=== PATIENT | male | born 1940 | race Caucasian/White ===

== ENCOUNTER 2016-04-12 06:35 | Day surgery (SDC) | payer OTHER, MEDICARE ==
[~2016-04-12] VITALS: Ht 165.1 cm; Wt 52.0 kg
[2016-04-12] VITALS (10 sets, daily range): BP systolic 103–140; BP diastolic 45–55; PULSE 62–68; RESP 16–24; Ht 165.1 cm; Wt 52.0 kg
[~2016-04-12 06:35] MED LIST: AMIO200T46 PO; ASPI-664 PO; CALC1TAB32 PO; METO-429 PO; NEPH PO; NIFE60TA7 PO; PRED5 PO; SIMV20TA PO; TEMA15CA PO; TRAM50TA2 PO
[2016-04-12] MEDS ORDERED: VERAPAMIL 5 MG INJ ONE (08:01)
[2016-04-12] MEDS ORDERED: MIDAZOLAM 1 MG/ML 2 ML INJ ONE (08:01)
[2016-04-12] MEDS ORDERED: NITROGLYCERIN (IC) 100 MCG/ML INJ ONE (08:01)
[2016-04-12] MEDS ORDERED: LIDOCAINE 1% (MDV) 20 ML INJ ONE (08:01)
[2016-04-12] MEDS ORDERED: FENTAnyl 50 MCG/ML VIAL ONE (08:01)
[2016-04-12] MEDS ORDERED: IODIXANOL LOCM 100 ML BTL ONE (08:01)
[2016-04-12] MEDS ORDERED: HEPARIN 1000 UNITS/ML 10 ML INJ ONE (08:01)
[2016-04-12] MEDS ORDERED: SOD CHLORIDE 0.9% 500 ML ONE (08:58)
--- NOTE | 2016-04-12 09:14 | OPR ---
Date/Time of Note Date/Time of Note DATE: 04/12/16 TIME: 09:10 Operative Report Free Text/Dictation Procedure Date:04/12/2016 Procedures Performed: 1)Selective left and right coronary angiography. 2)Left ventricle angiography 3)Right femoral venous sheath insertion 4)Ultrasound guided right radial access Pre-operative Diagnosis:NSTEMI, CAD, cardiomyopathy, CHF Post-operative Diagnosis:same Indications:75 yo M with a h/o CAD s/p PCI to RCA, ESRD on HD, admitted for CHF and found to have an NSTEMI (trop 0.7) with EF 35%. Description of Procedure: After informed consent, the patient was brought to the cardiac catheterization lab. The procedure site was prepped and draped in usual manner. As the pt did not have IV access, a 4 georgian sheath was inserted into the right femoral vein. The patient was premedicated with versed 1 mg and fentanyl 25 mcg. 2 mL lidocaine was injected into the right wrist. Using ultrasound guidance and the posterior wall approach, the 6/5 georgian sheath was inserted into the right radial artery. Next using the JL4 and JR4, selective angiography of the left and right coronary arteries were obtained. The pigtail was then advanced into the ventricle and hemodynamics obtained. Left ventricle angiography was obtained. Next all equipment was removed and hemostasis was obtained by TR band. Findings: Anatomy/Hemodynamics: Left main:no significant disease LAD:small vessel ~2-2.25mm with prox to distal diffuse disease up to 50% unchanged from cath 2015 Diagonal:luminal irregularities Circumflex:luminal irregularities Obtuse marginal 1: luminal irregularities Obtuse marginal 2: large vessel with prox 40% unchanged from cath 2015, distal 50-60% in a vessel that tapers to <2mm RCA:prox/mid stent patent PDA:mid to distal 50-60% in a <2 mm vessel PLV: luminal irregularities LV angiography:~35-40% with akinesis/dyskinesis of the entire apex LV-Ao no pullback gradient LVEDP:19 Contrast used:65 Fluoroscopy time: 2.5 Assessment: Nonobstructive diffuse CAD not amenable to PCI NSTEMI Cardiomyopathy Systolic heart failure Plan: -discharge back to [facility] for medical management ROJAS MCPHERSON Apr 12, 2016 09:14
[2016-04-12] MEDS ORDERED: morphine 2 MG INJ IV PRN (09:30)
[2016-04-12] MEDS ORDERED: ONDANSETRON 4 MG INJ IV PRN (09:30)
== END 2016-04-12 11:28 | disposition other institution (70) ==
LOC: CCL 06:35 → SDS 06:41 → CCL 11:28
PROVIDERS: ATTEND Internal Medicine Interventional Cardiology
DX: I21.4 Non-ST elevation (NSTEMI) myocardial infarction (principal); I25.10 Atherosclerotic heart disease of native coronary artery without angina pectoris; I50.20 Unspecified systolic (congestive) heart failure; I42.9 Cardiomyopathy, unspecified; I12.0 Hypertensive chronic kidney disease with stage 5 chronic kidney disease or end stage renal disease; N18.6 End stage renal disease; Z99.2 Dependence on renal dialysis; E78.5 Hyperlipidemia, unspecified
CPT/HCPCS: 82962; 93458; C1769; C1887; C1894; J1644; J2250; J3010; J7040; Q9967

== ENCOUNTER 2016-06-29 20:39 | Inpatient (IN) | payer MEDICARE ==
[~2016-06-29] VITALS: Ht 160 cm; Wt 49.3 kg
[~2016-06-29 20:39] MED LIST changes: -AMIO200T46 PO
[2016-06-29] MEDS ORDERED: SOD CHLORIDE 0.9% 500 ML IV STA (21:45)
[2016-06-29] MEDS ORDERED: ASPI81TA3 PO (21:46)
[2016-06-29] MEDS ORDERED: TEMA30CA PO (21:47)
[2016-06-29] MEDS ORDERED: NEPH PO (21:48)
[2016-06-29] MEDS ORDERED: ABIR250T PO (21:49)
[2016-06-29] MEDS ORDERED: AMIO200T2 PO (21:49)
[2016-06-29] MEDS ORDERED: SIMV20TA PO (21:50)
[2016-06-29] MEDS ORDERED: PRED5 PO (21:51)
[2016-06-29] MEDS ORDERED: METO-429 PO (21:52)
[2016-06-29] MEDS ORDERED: NIFE60TA7 PO (21:53)
[2016-06-29] MEDS ORDERED: SEVE800T7 PO (21:54)
[2016-06-29] MEDS ORDERED: CALC1TAB79 PO (21:55)
[2016-06-29 22:13] LABS: ADD SCAN DIFF NO
[2016-06-29 22:19] LABS: BASOPHILS % 0.2 % (0.0-2.0); EOSINOPHILS # 0.1 10^3/ul (0.0-0.5); EOSINOPHILS % 0.6 % (0.0-7.0); HEMATOCRIT 35.5 % (42.0-52.0); HEMOGLOBIN 11.3 g/dl (14.0-18.0); LYMPHOCYTES # 0.7 10^3/ul (0.8-2.9); LYMPHOCYTES % 7.5 % (15.0-51.0); MEAN CORPUSCULAR HEMOGLOBIN 28.2 pg (29.0-33.0); MEAN CORPUSCULAR HGB CONC 31.8 g/dl (32.0-37.0); MEAN CORPUSCULAR VOLUME 88.5 fl (82.0-101.0); MEAN PLATELET VOLUME 10.9 fl (7.4-10.4); MONOCYTE # 1.2 10^3/ul (0.3-0.9); MONOCYTES % 11.9 % (0.0-11.0); NEUTROPHIL # 7.8 10^3/ul (1.6-7.5); NEUTROPHILS % 79.1 % (39.0-77.0); PLATELET COUNT 240 10^3/UL (140-415); RED BLOOD COUNT 4.01 10^6/ul (4.70-6.10); RED CELL DISTRIBUTION WIDTH 15.7 % (11.5-14.5); WHITE BLOOD COUNT 9.8 10^3/ul (4.8-10.8)
[2016-06-29 22:45] LABS: ALBUMIN 4.1 g/dl (3.3-4.9)
[2016-06-29 22:47] LABS: CREATININE 5.94 mg/dl (0.61-1.24)
[2016-06-29 22:48] LABS: ALBUMIN/GLOBULIN RATIO 1.05
[2016-06-29 22:49] LABS: CALCIUM 9.3 mg/dl (8.4-10.2)
[2016-06-29 23:00] LABS: TROPONIN-I 0.022 ng/ml (0.00-0.12)
--- NOTE | 2016-06-29 23:03 | ERA ---
ER Documentation Chief Complaint Date/Time DATE: 06/29/16 TIME: 23:00 Chief Complaint altered mental status after being dialyzed today HPI This a pleasant 75-year-old male who is here for altered level of consciousness during dialysis. Patient's normal baseline mental status is awake alert oriented 3 is very sharp and "with it". Patient was at dialysis and at around 8 PM tonight patient suddenly became confused. The patient's speech is tangential and he did not recognize his family members and he did not even know his own name. The patient is denying any physical complaints denies headache chest pain shortness of breath no focal neurological complaints. ROS All systems reviewed and are negative except as per history of present illness. Medications Home Meds Reported Medications Calcium Carbonate/Vitamin D3 (Oysco 500+D Tablet) 1 Each Tablet, 1 EACH PO BID, TAB 06/29/16 Sevelamer Carbonate* (Renvela*) 800 Mg Tablet, 0.8 GM PO WITH MEALS, TAB 06/29/16 Nifedipine* (Nifedipine ER*) 60 Mg Tablet.sa, 60 MG PO BID, TAB.SA 06/29/16 Metoprolol Tartrate* (Lopressor*) 50 Mg Tab, 50 MG PO BID, #60 TAB 06/29/16 Prednisone* (Prednisone*) 5 Mg Tab, 5 MG PO BID, TAB 06/29/16 Simvastatin* (Zocor*) 20 Mg Tablet, 20 MG PO QHS, #30 TAB 06/29/16 Amiodarone Hcl* (Amiodarone Hcl*) 200 Mg Tablet, 200 MG PO BID, #60 TAB 06/29/16 Abiraterone Acetate (ZYTIGA) 250 Mg Tablet, 250 MG PO DAILY, TAB 06/29/16 Multivit/Ca Carb/B Cmplx/Fa* (Darcy-Jean-Pierre*) 1 Tab Tab, 1 TAB PO DAILY, TAB 06/29/16 Temazepam* (Temazepam*) 30 Mg Capsule, 30 MG PO HS Y for INSOMNIA, CAP 06/29/16 Aspirin* (Aspirin* Chew) 81 Mg Tab.chew, 81 MG PO DAILY, TAB.CHEW 06/29/16 Discontinued Reported Medications Metoprolol Tartrate* (Lopressor*) 50 Mg Tab, 50 MG PO BID, #60 TAB 10/12/15 Simvastatin* (Zocor*) 20 Mg Tablet, 20 MG PO QHS, #30 TAB 10/12/15 Prednisone* (Prednisone*) 5 Mg Tab, 5 MG PO BID, TAB 08/27/14 Calcium/Vitamin D (Oyst-Sylvain-D 500) 1 Tab Tab, 1 TAB PO BID, TAB 08/27/14 Multivit/Ca Carb/B Cmplx/Fa* (Darcy-Jean-Pierre*) 1 Tab Tab, 1 TAB PO DAILY, TAB 08/27/14 Nifedipine* (Nifedipine ER*) 60 Mg Tablet.sa, 60 MG PO BID, TAB.SA 08/27/14 Temazepam* (Temazepam*) 15 Mg Capsule, 15 MG PO HS Y for INSOMNIA, CAP 08/27/14 Discontinued Scripts Tramadol HCl (Tramadol HCl) 50 Mg Tablet, 50 MG PO Q4 Y for PAIN, #20 TAB Prov:TRU BERG 10/13/15 Aspirin* (Aspirin* EC) 81 Mg Tabec, 81 MG PO DAILY, #30 TAB Prov:PARESH RUBI MD 09/05/14 Allergies Allergies: Coded Allergies: No Known Allergy (Unverified , 06/29/16) PMhx/Soc History of Surgery: Yes (cardiac stent, a/v shunt left lower arm) Anesthesia Reaction: No Hx Neurological Disorder: No Hx Respiratory Disorders: No Hx Cardiac Disorders: Yes (htn, dm) Hx Psychiatric Problems: No Hx Miscellaneous Medical Probl: Yes (prostate ca, esrd, dialysis q tue, th, sat) Hx Alcohol Use: No Hx Substance Use: No Hx Tobacco Use: No Smoking Status: Never smoker FmHx Unable to obtain due to altered mental status Physical Exam Vitals Vital Signs Date Time Temp Pulse Resp B/P Pulse Ox O2 Delivery O2 Flow Rate FiO2 06/29/16 23:26 70 16 159/62 99 Nasal Cannula 2.0 06/29/16 22:06 Nasal Cannula 2 06/29/16 21:30 68 16 188/76 100 Nasal Cannula 2.0 06/29/16 20:41 97.6 77 20 209/88 98 Physical Exam Const: Well-developed, well-nourished Head: Atraumatic, normocephalic Eyes: Normal Conjunctiva, PERRLA, EOMI, normal sclera, no nystagmus ENT: Normal External Ears, Nose and Mouth, moist mucus membranes. Neck: Full range of motion. No meningismus, no lymphadenopathy. Resp: Clear to auscultation bilaterally, no wheezing, rhonchi, rales Cardio: Regular rate and rhythm, no murmurs, S1 S2 present Abd: Soft, non tender x 4, non distended. Normal bowel sounds, no guarding or rebound, no pulsitile abdominal masses or bruits Skin: No petechiae or rashes, no ecchymosis , no maculopapular rash Back: No midline or flank tenderness Ext: No cyanosis, or edema, FROM x 4, normal inspection, neurovascularly intact x 4 Neur: Awake and alert, STR 5/5 x 4, sensation intact x 4, no focal findings, cerebellum intact, patient is oriented 1-2, the patient does not recognize his daughter. After a few minutes he did recognize her but does not know her name. Patient does not know why he is here. Psych: Normal Mood and Affect Result Diagram: 06/29/16214406/29/162144 Results 24 hrs Laboratory Tests Test 06/29/16 21:45 White Blood Count 9.810^3/ul Red Blood Count 4.0110^6/ul Hemoglobin 11.3g/dl Hematocrit 35.5% Mean Corpuscular Volume 88.5fl Mean Corpuscular Hemoglobin 28.2pg Mean Corpuscular Hemoglobin Concent 31.8g/dl Red Cell Distribution Width 15.7% Platelet Count 82961^3/UL Mean Platelet Volume 10.9fl Neutrophils % 79.1% Lymphocytes % 7.5% Monocytes % 11.9% Eosinophils % 0.6% Basophils % 0.2% Nucleated Red Blood Cells % 0.0/100WBC Neutrophils # 7.810^3/ul Lymphocytes # 0.710^3/ul Monocytes # 1.210^3/ul Eosinophils # 0.110^3/ul Basophils # 0.010^3/ul Nucleated Red Blood Cells # 0.010^3/ul Sodium Level 137mmol/L Potassium Level 4.0mmol/L Chloride Level 89mmol/L Carbon Dioxide Level 28mmol/L Anion Gap 24 Blood Urea Nitrogen 49mg/dl Creatinine 5.94mg/dl Glucose Level 133mg/dl Calcium Level 9.3mg/dl Total Bilirubin 0.0mg/dl Direct Bilirubin 0.00mg/dl Indirect Bilirubin 0.0mg/dl Aspartate Amino Transf (AST/SGOT) 22IU/L Alanine Aminotransferase (ALT/SGPT) 18IU/L Alkaline Phosphatase 114IU/L Ammonia < 9umol/l Troponin I 0.022ng/ml Total Protein 8.0g/dl Albumin 4.1g/dl Globulin 3.90g/dl Albumin/Globulin Ratio 1.05 Current Medications Medications (Trade) Dose Ordered Sig/Garland Route PRN Reason Start Time Stop Time Status Last Admin Dose Admin Sodium Chloride (NS) 500 ml @ 500 mls/hr Q1H STAT IV 06/29/16 21:45 06/29/16 22:44 DC 06/29/16 22:35 Procedures/MDM PROCEDURE: CT brain without contrast CLINICAL INDICATION: Altered mental status TECHNIQUE: A CT of the brain was performed utilizing axial sections from the skull base through the vertex without contrast. Sagittal and coronal images were also reformatted. The exam CTDIvol = 43.68 mGy and DLP = 720.23 mGy-cm. COMPARISON: None available FINDINGS: No acute intracranial hemorrhage is identified. There is no mass effect or midline shift. No extra-axial fluid collection is seen. The ventricles and sulci are normal in size and configuration for the patient's provided age of 75 years consistent with advanced generalized atrophy. Cortical atrophy with prominence of the subarachnoid spaces adjacent to the frontal lobes bilaterally is present The density of the brain is within normal limits. Cedillo-white differentiation is preserved with no findings to suggest an acute ischemic infarct. The fourth ventricle is midline and there is no density alteration within the vin or cerebellum. The osseous structures are demineralized but otherwise to unremarkable. The mastoid air cells and visualized paranasal sinuses are clear. Severe atherosclerotic calcification of the cavernous internal carotid and vertebral arteries is present RPTAT:HJJR IMPRESSION: 1.Generalized atrophy appropriate for the patient's provided age with no evidence of acute intracranial abnormality or findings to explain the patient's provided history. 2. Severe atherosclerotic calcification of the internal carotid and vertebral arteries. Physician Danilo Date Time Electronically viewed and signed by Physician Danilo on 06/29/2016 23:09 JR/ CC: LILLY CADET DO EKG: Rate/Rhythm: Normal sinus rhythm, normal axis and intervals QRS, ST, QT: NORMAL LA, QRS, prolonged QT] Impression: NORMAL EKG Patient will be admitted to the hospital for altered mental status. The patient may have had some type of cerebral event, chest x-ray is currently pending may have an infectious process. No signs of stroke the patient has significant plaque in his carotid arteries may have had a small piece of plaque come off and go into the head for a small stroke. Will need to get MRI. He will be given an aspirin here. Is not a TPA candidate as you do not give TPA for altered mental status We will admit to panel Departure Diagnosis: Primary Impression: Altered level of consciousness Condition: Stable LILLY CADET DO June 29, 2016 23:03
--- NOTE | 2016-06-29 23:09 | RADRPT ---
PROCEDURE: CT brain without contrast CLINICAL INDICATION: Altered mental status TECHNIQUE: A CT of the brain was performed utilizing axial sections from the skull base through th e vertex without contrast. Sagittal and coronal images were also reformatted. The exam CTDIvol = 43. 68 mGy and DLP = 720.23 mGy-cm. COMPARISON: None available FINDINGS: No acute intracranial hemorrhage is identified. There is no mass effect or midline shift. No extra -axial fluid collection is seen. The ventricles and sulci are normal in size and configuration for the patient's provided age of 75 years consistent with advanced generalized atrophy. Cortical atroph y with prominence of the subarachnoid spaces adjacent to the frontal lobes bilaterally is present Th e density of the brain is within normal limits. Cedillo-white differentiation is preserved with no fin dings to suggest an acute ischemic infarct. The fourth ventricle is midline and there is no density alteration within the vin or cerebellum. The osseous structures are demineralized but otherwise to unremarkable. The mastoid air cells and v isualized paranasal sinuses are clear. Severe atherosclerotic calcification of the cavernous interna l carotid and vertebral arteries is present RPTAT:HJJR IMPRESSION: 1.Generalized atrophy appropriate for the patient's provided age with no evidence of acute intracran ial abnormality or findings to explain the patient's provided history. 2. Severe atherosclerotic calcification of the internal carotid and vertebral arteries. Physician Danilo Date Time Electronically viewed and signed by Physician Danilo on 06/29/2016 23:09 /
[2016-06-30] VITALS (22 sets, daily range): BP systolic 141–190; BP diastolic 59–81; PULSE 64–75; RESP 16–65; Ht 160 cm; Wt 49.3 kg
--- NOTE | 2016-06-30 00:45 | RADRPT ---
PROCEDURE: XR Chest. CLINICAL INDICATION: Altered Mental Status TECHNIQUE: Single frontal view of the chest. COMPARISON: 10/12/2015. FINDINGS: Cardiomegaly and atherosclerotic calcifications in the thoracic aorta. Hyperinflation of the lungs suggest COPD with changes of centrolobular emphysema. No signs of pleural fluid or pneumothorax are seen. The osseous structures and soft tissues are unremarkable. IMPRESSION: No evidence for active cardiopulmonary disease. RPTAT: [facility]U Physician Raffaele Date Time Electronically viewed and signed by Physician Raffaele on 06/30/2016 00:45 RS/
[2016-06-30] MEDS ORDERED: ASPIRIN 81 MG TAB PO ONE (01:00)
[2016-06-30] MEDS ORDERED: ACETAMINOPHEN 325 MG TAB PO PRN ×2 (01:30→04:00)
[2016-06-30] MEDS ORDERED: ONDANSETRON 4 MG INJ IV PRN ×2 (01:30→04:00)
[2016-06-30] MEDS ORDERED: GLUCAGON 1 MG INJ IM PRN (04:00)
[2016-06-30] MEDS ORDERED: GLUCOSE GEL 15 GRAM TUBE PO PRN ×2 (04:00)
[2016-06-30] MEDS ORDERED: hydrALAzine 20 MG INJ IV ONE (04:00)
[2016-06-30] MEDS ORDERED: hydrALAzine 20 MG INJ IV PRN (04:00)
[2016-06-30] MEDS ORDERED: DEXTROSE 50% 50 ML SYRINGE IV PRN ×2 (04:00)
[2016-06-30] MEDS ORDERED: GLUCOSE GEL 15 GRAM TUBE BUCCAL PRN (04:00)
[2016-06-30] MEDS ORDERED: ZOLPIDEM 5 MG TAB PO PRN (04:00)
[2016-06-30 07:54] LABS: ADD SCAN DIFF NO
[2016-06-30] MEDS: INSULIN ASPART [NOVOLOG] 3 ML PEN SC SCH ×4 (08:00→21:00)
[2016-06-30 08:06] LABS: BASOPHILS % 0.5 % (0.0-2.0); EOSINOPHILS # 0.1 10^3/ul (0.0-0.5); EOSINOPHILS % 1.6 % (0.0-7.0); HEMATOCRIT 36.3 % (42.0-52.0); HEMOGLOBIN 11.4 g/dl (14.0-18.0); LYMPHOCYTES # 1.1 10^3/ul (0.8-2.9); LYMPHOCYTES % 14.7 % (15.0-51.0); MEAN CORPUSCULAR HEMOGLOBIN 27.6 pg (29.0-33.0); MEAN CORPUSCULAR HGB CONC 31.4 g/dl (32.0-37.0); MEAN CORPUSCULAR VOLUME 87.9 fl (82.0-101.0); MEAN PLATELET VOLUME 10.7 fl (7.4-10.4); MONOCYTE # 0.9 10^3/ul (0.3-0.9); MONOCYTES % 12.6 % (0.0-11.0); NEUTROPHIL # 5.3 10^3/ul (1.6-7.5); NEUTROPHILS % 70.2 % (39.0-77.0); PLATELET COUNT 258 10^3/UL (140-415); RED BLOOD COUNT 4.13 10^6/ul (4.70-6.10); RED CELL DISTRIBUTION WIDTH 15.7 % (11.5-14.5); WHITE BLOOD COUNT 7.5 10^3/ul (4.8-10.8)
[2016-06-30 08:26] LABS: ANION GAP 13 (8-16); BLOOD UREA NITROGEN 53 mg/dl (7-20); CALCIUM 8.9 mg/dl (8.4-10.2); CARBON DIOXIDE 28 mmol/L (21-31); CHLORIDE 96 mmol/L (97-110); CHOL/HDL RATIO 3.2 RATIO; CHOLESTEROL 133 mg/dl (100-200); CREATININE 6.77 mg/dl (0.61-1.24); GLUCOSE 95 mg/dl (70-220); HDL CHOLESTEROL 41 mg/dl (31-75); MAGNESIUM 2.1 mg/dl (1.7-2.5); PHOSPHORUS 4.3 mg/dl (2.5-4.9); POTASSIUM 4.2 mmol/L (3.5-5.1); SODIUM 133 mmol/L (135-144); TRIGLYCERIDES 136 mg/dl (0-149)
[2016-06-30] MEDS: ASPIRIN 81 MG TAB PO SCH (08:39)
[2016-06-30] MEDS: MULTIVIT/CA CARB/B CMPLX/FA TAB PO SCH (08:39)
[2016-06-30] MEDS: NIFEdipine (XL) 60 MG TAB PO SCH ×2 (08:40→21:23)
[2016-06-30] MEDS: AMIODARONE 200 MG TAB PO SCH ×2 (08:40→21:24)
[2016-06-30] MEDS: predniSONE 5 MG TAB PO SCH ×2 (08:40→21:23)
[2016-06-30] MEDS: SEVELAMER CARBONATE 0.8 GM PKT PO SCH ×3 (08:49→18:20)
[2016-06-30] MEDS: HEPARIN 5,000 UNIT/0.5 ML VIAL SC SCH ×2 (08:49→21:29)
[2016-06-30] MEDS: CALCIUM/VITAMIN D (500/200) TAB PO SCH ×2 (08:50→21:23)
[2016-06-30] MEDS ORDERED: METOPROLOL 50 MG TAB PO SCH (09:00)
[2016-06-30 09:26] LABS: FOLATE > 20.0 ng/ml (2.8-20.0)
--- NOTE | 2016-06-30 10:31 | HP ---
DATE OF ADMISSION: 06/30/2016 CHIEF COMPLAINT: Altered mentation. HISTORY OF PRESENT ILLNESS: The patient is a 75-year-old male with a history of hypertension, diabe romana, coronary artery disease status post stent, AFib, and probable history of prostate cancer, who w as sent from a dialysis center after experiencing altered mentation. At 2 hours into dialysis, he h ad sudden onset of altered mentation and as such, he was sent here for evaluation. The patient did not really have any complaints at that time or even now. He denied any focal weakness, chest pain, shortness of breath, headache, visual disturbance, fever or chills. His systolic blood pressure at that time was over 200. When he presented to the ER, blood pressure was 209/88, heart rate 77, resp iratory rate 20, temperature 97.6, oxygen saturation 98% on room air. CT of the head shows severe p laque in the internal carotid and vertebral arteries. Labs show hemoglobin 11.3, chloride 89, BUN 4 9, creatinine almost 6. Otherwise, CBC and CMP were within acceptable range. Chest x-ray shows no evidence of active cardiopulmonary disease. The patient told me that 2 weeks ago he actually had a similar episode of altered mentation during d ialysis. Currently, he actually is fully aware of what had happened and he is currently answering q uestions appropriately and is actually feeling well and he is oriented. REVIEW OF SYSTEMS: A 12-point review of systems performed and negative except as mentioned in the H PI. PAST MEDICAL HISTORY: As per HPI. PAST SURGICAL HISTORY: Cardiac stent as well as left arm AV shunt. SOCIAL HISTORY: Denied history of tobacco, alcohol or illicit drug use. ALLERGIES: NO KNOWN DRUG ALLERGIES. HOME MEDICATIONS: 1. Zytiga. 2. Amiodarone. 3. Lopressor. 4. Nifedipine. 5. Zocor. 6. Aspirin. 7. Temazepam. 8. Calcium. 9. Sevelamer. 10. Prednisone. 11. Multivitamin. PHYSICAL EXAMINATION: VITAL SIGNS: Blood pressure 176/64, heart rate 67, respiratory rate 16, temperature 97.6, oxygen sa turation 100% on 2 liters. GENERAL: The patient lying in bed. Initially sleepy but arousable, answering questions appropriate ly and able to speak in full sentences. HEENT: No obvious head deformity. No scleral icterus. Pupils are reactive to light. CARDIOVASCULAR: Regular rate and rhythm with no extra sounds. LUNGS: Clear. ABDOMEN: Soft, nontender, nondistended. Positive bowel sounds. EXTREMITIES: No edema. NEUROLOGIC: No focal deficits. He actually has 5/5 strength in both upper and lower extremities wi th good hand sales consultant. LABORATORY DATA: Pertinent positive results as mentioned in the HPI. IMAGING: Brain CT results as mentioned in the HPI. A chest x-ray shows no evidence for active card iopulmonary disease. IMPRESSION: 1. Acute encephalopathy, resolved. It was likely secondary to hypertensive crisis. 2. Hypertensive emergency, blood pressure better controlled. 3. End-stage renal disease, on dialysis. 4. History of coronary artery disease status post stent in 2014. 5. History of atrial fibrillation. 6. History of diabetes. 7. History of probable prostate cancer. PLAN: The patient's initial altered mentation which occurred 2 hours into dialysis, it is likely re sult of a severely elevated blood pressure. Also prior to that, his blood pressure could have been momentarily low and it could have been both a hypotensive and the hypertensive episode. CT of the h ead shows no acute infarct or hemorrhage, but it did show severe internal carotid artery and vertebr al artery plaques. We will obtain additional imaging including a CT angio of the neck and an MRI fo r further evaluation. We will continue to adjust his blood pressure for better control. He will be on insulin while in house. We will continue his home medications with adjustments as needed includ ing his cardiac medications and aspirin. I will also check a folic acid, vitamin B12 and TSH, so we will follow up on the results in the morning. We will place a nephrology consult. We are going to continue his dialysis while in house. Further workup and management per clinical course. Dictated By: TRU MEZA/GOPAL Conf#: [id number] DID#: [id number]
--- NOTE | 2016-06-30 10:58 | CONS ---
DATE OF ADMISSION: 06/30/2016 DATE OF CONSULTATION: 06/30/2016 TYPE OF CONSULTATION: Nephrology. REASON FOR CONSULTATION: End-stage renal disease. REQUESTING PHYSICIAN: Dr. Pereyra. HISTORY OF PRESENT ILLNESS: This is a 75-year-old male with a past medical history of prostate canc er on hormonal replacement therapy and history of end-stage renal disease on dialysis Monday, , Monday with access left AV fistula, history of diabetes, history of hypertension who presents to [facility] with chest heaviness and altered mental status. The patient appare ntly during this course hemodialysis lost consciousness. The patient also complained of chest heavi ness. The patient at one point was unable to recognize family members. The patient as a result was transferred to [facility] Emergency Room. Upon arrival, the patient had a CT scan of the brain which showed generalized atrophy, but no acute findings. The patient in the emergency room al so had a chest x-ray which showed no evidence of cardiopulmonary disease. He was subsequently treat ed with Unasyn. The patient was also given aspirin was given IV fluids and admitted up to telemetry for evaluation. Upon my evaluation of the patient at this time, he is currently stable. Denies any chest pain, feve rs, chills, nausea, vomiting. PAST MEDICAL HISTORY: As stated above, history of prostate cancer, history of end-stage renal disea se, history of hypertension, diabetes, anemia, mineral bone disorder. PAST SURGICAL HISTORY: Status post AV fistula placement. FAMILY HISTORY: Noncontributory. SOCIAL HISTORY: Does not drink, smoke or do drugs. MEDICATIONS: Patient medications have been reviewed and reconciled. REVIEW OF SYSTEMS: A 14-point review of systems was conducted. Pertinent positives stated in HPI, otherwise negative. PHYSICAL EXAMINATION: VITAL SIGNS: Blood pressure was 73/77, respirations 16, pulse 77, temperature 98.0. HEENT: Head is normocephalic. NECK: Supple. HEART: Regular rate. LUNGS: Show diminished breath sounds at base. ABDOMEN: Soft, nontender to palpation. No rebound or guarding. EXTREMITIES: Negative for clubbing, cyanosis, edema. DERMATOLOGIC: No rashes. MUSCULOSKELETAL: No joint effusions. NEUROLOGIC: No focal deficits. MEDICATIONS: Have been reviewed. LABORATORY DATA: Shows sodium 133, potassium 4.2, chloride 96, BUN 53, creatinine 6.77. White coun t 7.5, hemoglobin 9.4, hematocrit 36.3, platelet count 258. IMAGING STUDIES: Have been reviewed. ASSESSMENT AND PLAN: 1. End-stage renal disease. The patient's dialysis Monday, , Monday with access left AV fistula. Plan for hemodialysis today for 3 hours, 3 K bath, calcium 2.5, will ultrafiltrate as snow erated. 2. Anemia of chronic disease. Continue to monitor H and H levels. No need for Epogen. 3. Mineral bone disorder. Continue to monitor calcium and phosphorus levels. Will start the patie nt on phosphate binders. 4. Hypertension in part due to increased intravascular volume. Continue ultrafiltration dialysis. Continue current blood pressure regimen. 5. Acute loss of consciousness, syncope. Etiology is unclear, possible hemodynamics and possible v asovagal. The patient is status post CT scan of the brain was negative. Pending MRI. Would contin ue current medical management with aspirin and statin therapy. Consider neurologic evaluation. 6. Atypical chest pain. Etiology is unclear. Would rule out acute coronary syndrome by checking s erial troponins. Continue current medical management. Consider a cardiology evaluation. 7. History of prostate cancer. The patient is currently on antifungal therapy. We will continue. Continue prednisone. 8. Hypothyroidism. The patient's TSH levels are mildly elevated. Free T4 levels are pending. Rigo mailk start patient on Synthroid 75 mcg daily. 9. History of arrhythmia. Continue amiodarone. Thank you, Dr. Pereyra, for this interesting consultation. It will be a pleasure to follow patient with you throughout the hospital course. Dictated By: ASIM GARCIA/GOPAL Conf#: [id number] DID#: [id number]
[2016-06-30] MEDS ORDERED: IODIXANOL LOCM 100 ML BTL ONE (11:06)
[2016-06-30] MEDS ORDERED: SOD CHLORIDE 0.9% 100 ML ONE (11:06)
--- NOTE | 2016-06-30 13:16 | RADRPT ---
PROCEDURE: CT angiogram neck CLINICAL INDICATION: Severe carotid plaque TECHNIQUE: CT angiogram of the neck was performed on a multidetector CT scanner. The study was revi ewed on a [employer] PACS/3D workstation with 3D-MIP reformations. 80 cc Visipaque 320 intravenous contrast were administered. One or more of the following dose reduction techniques were used: Autom ated exposure control, adjustment in mA and / or kV according to patient size, use of iterative darek nstructive technique. CTDIvol = 13 mGy and DLP = 408 mGy-cm. COMPARISON: None available. FINDINGS: Calcified plaques present at the aortic arch and great vessel origins which are patent. There are mi nimal calcified plaques along the right common carotid artery and minimal to mild calcified plaques along the left common carotid artery which is patent. There are is mild calcified plaque at the rig ht carotid bulb and proximal external carotid artery which are patent and there is mild calcified pl aque at the right internal carotid artery distally with approximately 35% stenosis by NASCET criteri a. There are calcified plaques at the left carotid bulb/bifurcation and proximal internal carotid a rtery, with approximately 47% stenosis at the carotid bulb by NASCET criteria. There is also modera te severe stenosis of the left external carotid artery origin. There is calcified plaque at the lef t vertebral artery origin with mild-moderate stenosis. There is also mild focal stenosis of the mid left vertebral artery at the C4-5 level due to adjacent facet arthropathy. The right vertebral artery is small but patent. No dissection is identified. Noted are sub centimeter bilateral thyroid nodules not meeting size criteria for workup. Mild biapical scarring/post granulomatous changes wi th minimal calcifications on the right are seen. 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 Calcified plaques are also identified at the distal petrous through supraclinoid internal carotid ar teries bilaterally with moderate to severe focal stenosis of the cavernous right internal carotid ar david, moderate focal stenosis at the cavernous left internal carotid artery and additional mild sten osis of the bilateral cavernous and supraclinoid internal carotid arteries. Intracranial vertebral artery is dominant with calcified plaques with moderate to severe focal stenoses. Vertebral artery is small but patent and terminates as the right posterior inferior cerebellar artery. IMPRESSION: 1. Cervical atherosclerotic disease, with approximately 34% stenosis of the distal right internal c arotid artery, and 47% stenosis at the left carotid bulb by NASCET criteria. 2. Mild to moderate stenosis of the left vertebral artery origin. 3. Mild focal stenosis of the mid cervical left vertebral artery due to adjacent cervical spondylos is. 4. Moderate to severe stenosis of the left external carotid artery origin. 5. 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 Follow-up MRI of the cervical spine is advised to evaluate the status of the cord. 6. Intracranial atherosclerotic disease with moderate to severe stenosis at the cavernous right int ernal carotid artery, moderate stenosis of the cavernous left internal carotid artery, additional mi ld bilateral internal carotid artery stenoses, and moderate to severe left vertebral artery stenosis . RPTAT: VV .Shawn Farmer MD, Date Time Electronically viewed and signed by .Shawn Farmer MD, on 06/30/2016 13:15 .O/
[2016-06-30] MEDS ORDERED: [UNRECOGNIZED DRUG - REMARK] XX SCH (14:00)
--- NOTE | 2016-06-30 14:10 | RADRPT ---
Echocardiogram Report Patient Name: MALIHA WILEY Gender: Male Date: 1940 Study Date: 30-Jun-2016 Public Works Director: Osvaldo Glez [facility] Location: 2493 Ref. Physician: TRU MALDONADO Quality: Good Procedures: Transthoracic echocardiogram with complete 2D, M-Mode, and doppler examination. Indications: hx of Coronary Artery Disease, AMS. 2D/M Mode Doppler Measurement Value Normal Ranges Measurement Value Normal Ranges LVIDd 2D 4.6 3.5 - 5.6 cm AV Peak Kulwinder 1.3 m/sec LVIDs 2D 2.6 2.1 - 4.1 cm AV Peak PG 7.1 mmHg LVPWd 2D 1.2 0.6 - 1.1 cm LVOT Peak Kulwinder 1.0 m/sec IVSd 2D 1.1 0.6 - 1.1 cm LVOT Peak PG 3.7 mmHg AoR Diam 2D 2.9 2.0 - 3.7 cm MV E Peak Kulwinder 1.1 m/sec EDV 2D 94.9 cm3 MV A Peak Kulwinder 0.7 m/sec ESV 2D 18.0 cm3 MV E/A 1.7 LA Dimen 2D 3.5 2.3 - 4.0 cm MV Decel Time 137 msec MV Decel Burleson 8 MV E/A 1.7 TR Peak Kulwinder 3.0 m/sec TR Peak PG 35.1 mmHg RVSP 38.0 mmHg Findings Left Ventricle: Normal left ventricular systolic function. Normal left ventricular cavity size. Mild concentric left ventricular hypertrophy. Ejection fraction is visually estimated at 55 %. Abnormal Diastolic Function. Right Ventricle: Normal right ventricular size. Normal right ventricular systolic function. Left Atrium: The left atrium is normal in size. Right Atrium: The right atrium is normal in size. Mitral Valve: Mitral valve leaflets appear mildly thickened. Mild mitral annular calcification. Trace mitral regurgitation. Aortic Valve: Normal appearance of the aortic valve. No significant aortic stenosis or insufficiency. Tricuspid Valve: Normal appearance of the tricuspid valve. Estimated peak PA systolic pressure 38 mmHg. There is mild tricuspid regurgitation. Pulmonic Valve: Normal pulmonic valve appearance. There is trace pulmonic regurgitation. Pericardium: Normal pericardium with no significant pericardial effusion. Aorta: Normal aortic root. IVC: Normal size and normal respiratory collapse consistent with normal right atrial pressure. Conclusions 1.Normal left ventricular systolic function. Normal left ventricular cavity size. Mild concentric left ventricular hypertrophy. Ejection fraction is visually estimated at 55 %. Abnormal Diastolic Function. 2.Normal right ventricular size. Normal right ventricular systolic function. 3.The left atrium is normal in size. 4.The right atrium is normal in size. 5.Trace mitral regurgitation. 6.No significant aortic stenosis or insufficiency. 7.Estimated peak PA systolic pressure 38 mmHg. There is mild tricuspid regurgitation. 8.Normal pericardium with no significant pericardial effusion. Electronically Signed By: Skyler Isaac 30-Jun-2016 14:08:52 -0700 Patient Name: MALIHA WILEY Study Date: 30-Jun-2016 [id number]
--- NOTE | 2016-06-30 14:52 | CONS ---
Date/Time of Note Date/Time of Note DATE: 06/30/16 TIME: 14:39 Assessment/Plan Assessment/Plan Chief Complaint/Hosp Course Assessment: Chest pain - rule out myocardial infarction, likely due to elevated blood pressures Accelerated hypertension - blood pressures now improved Acute encephalopathy - resolved, work up per primary team Coronary artery disease - history of right coronary artery stenting Dyslipidemia Probable history of atrial fibrillation - on amiodarone as outpatient, currently sinus rhythm End-stage renal disease - on hemodialysis Diabetes mellitus Hypothyroidism Prostate cancer - on hormone therapy Recommendations: -check additional troponin -echocardiogram reported LVEF 55% -coronary angiography 04/12/2016 showed nonobstructive disease, will defer repeat coronary evaluation unless acute coronary syndrome -change metoprolol to carvedilol 12.5mg BID for better blood pressure control -continue nifedipine 60mg BID -continue aspirin 81mg daily -continue statin -continue amiodarone 200mg BID Problems: Consultation Date/Type/Reason Admit Date/Time June 30, 2016 at 01:07 Type of Consultation: Cardiology Reason for Consultation chest pain Hx of Present Illness The patient is a 75 year-old male with coronary artery disease and end-stage renal disease who presents with altered mental status. He developed altered mental status and chest pressure while receiving his routine hemodialysis. His symptoms lasted for approximately one hour. On presentation, he was noted to have elevated blood pressures up to 209/88. His initial troponin was negative. His symptoms have resolved, and he has no further chest pain and his mental status is back to baseline. He has a prior history of coronary stenting to the right coronary artery. Recently, he underwent coronary angiography 04/12/2016 for NSTEMI and was found to have nonobstructive coronary artery disease. 14 point review of systems negative other than per HPI. Past Medical History Coronary artery disease - history of right coronary artery stenting Hypertension Dyslipidemia Probable history of atrial fibrillation - on amiodarone as outpatient End-stage renal disease Diabetes mellitus Hypothyroidism Prostate cancer Past Surgical History Past Surgical Hx: other (left upper extremity AV fistula placement) Family History Significant Family History: no pertinent family hx Social History Alcohol Use: none Smoking Status: Never smoker Drug Use: none Exam/Review of Systems Vital Signs Vitals Vital Signs Date Time Temp Pulse Resp B/P Pulse Ox O2 Delivery O2 Flow Rate FiO2 06/30/16 12:54 68 06/30/16 12:11 98.1 16 154/70 99 06/30/16 08:00 Nasal Cannula 2.0 Exam Constitutional: alert, well developed Psych: nl mood/affect, no complaints Head: atraumatic, normocephalic Eyes: nl conjunctiva, nl lids ENMT: nl external ears & nose, nl nasal mucosa & septum Neck: non-tender, supple Respiratory: clear to auscultation, normal air movement Cardiovascular: regular rate and rhythm Gastrointestinal: non-tender, soft Musculoskeletal: nl extremities to inspection Neurological: nl mental status, nl speech Results Result Diagram: 06/30/16 0710 06/30/16 0710 Results 24 hrs Laboratory Tests Test 06/29/16 21:45 06/30/16 07:10 06/30/16 08:04 06/30/16 12:35 White Blood Count 9.8 7.5 # Red Blood Count 4.01 L 4.13 L Hemoglobin 11.3 L 11.4 L Hematocrit 35.5 L 36.3 L Mean Corpuscular Volume 88.5 87.9 Mean Corpuscular Hemoglobin 28.2 L 27.6 L Mean Corpuscular Hemoglobin Concent 31.8 L 31.4 L Red Cell Distribution Width 15.7 H 15.7 H Platelet Count 240 258 Mean Platelet Volume 10.9 #H 10.7 H Neutrophils % 79.1 H 70.2 Lymphocytes % 7.5 L 14.7 L Monocytes % 11.9 H 12.6 H Eosinophils % 0.6 1.6 Basophils % 0.2 0.5 Nucleated Red Blood Cells % 0.0 0.0 Neutrophils # 7.8 H 5.3 Lymphocytes # 0.7 L 1.1 Monocytes # 1.2 H 0.9 Eosinophils # 0.1 0.1 Basophils # 0.0 0.0 Nucleated Red Blood Cells # 0.0 0.0 Sodium Level 137 133 L Potassium Level 4.0 4.2 Chloride Level 89 L 96 L Carbon Dioxide Level 28 28 Anion Gap 24 H 13 # Blood Urea Nitrogen 49 H 53 H Creatinine 5.94 H 6.77 H Glucose Level 133 95 Calcium Level 9.3 8.9 Total Bilirubin 0.0 L Direct Bilirubin 0.00 Indirect Bilirubin 0.0 Aspartate Amino Transf (AST/SGOT) 22 Alanine Aminotransferase (ALT/SGPT) 18 Alkaline Phosphatase 114 Ammonia < 9 L Troponin I 0.022 Total Protein 8.0 Albumin 4.1 Globulin 3.90 H Albumin/Globulin Ratio 1.05 Hemoglobin A1c 5.4 Phosphorus Level 4.3 Magnesium Level 2.1 Triglycerides Level 136 Cholesterol Level 133 LDL Cholesterol, Calculated 65 HDL Cholesterol 41 Cholesterol/HDL Ratio 3.2 Vitamin B12 Level 496 Folate > 20.0 H Thyroid Stimulating Hormone (TSH) 45.700 H Free Thyroxine 0.75 L Bedside Glucose 100 141 Medications Medications Current Medications Amiodarone HCl (Cordarone) 200 mg BID PO Last administered on 06/30/16 08:40; Admin Dose 200 MG; Start 06/30/16 at 09:00 Aspirin (Aspirin) 81 mg DAILY PO Last administered on 06/30/16 08:39; Admin Dose 81 MG; Start 06/30/16 at 09:00 Calcium/Vitamin D (Oyster Shell/ Vit-D (500/200)) 1 tab BID PO Last administered on 06/30/16 08:50; Admin Dose 1 TAB; Start 06/30/16 at 09:00 Metoprolol Tartrate (Lopressor) 50 mg BID PO Last administered on 06/30/16 08: 39; Admin Dose 50 MG; Start 06/30/16 at 09:00 Multivit/Ca Carb/ B Cmplx/FA/Prenat (Darcy-Jean-Pierre) 1 tab DAILY PO Last administered on 06/30/16 08:39; Admin Dose 1 TAB; Start 06/30/16 at 09:00 Nifedipine (Procardia Xl) 60 mg BID PO Last administered on 06/30/16 08:40; Admin Dose 60 MG; Start 06/30/16 at 09:00 Prednisone (Prednisone) 5 mg BID PO Last administered on 06/30/16 08:40; Admin Dose 5 MG; Start 06/30/16 at 09:00 Miscellaneous Information 250 mg DAILY PO ; Start 06/30/16 at 09:00; Status UNV Atorvastatin Calcium (Lipitor) 10 mg DAILY@21 PO ; Start 06/30/16 at 21:00 Zolpidem Tartrate (Ambien) 10 mg HS PRN PO INSOMNIA; Start 06/30/16 at 04:00 Ondansetron HCl (Zofran Inj) 4 mg Q4H PRN IV NAUSEA AND/OR VOMITING; Start at 04:00 Acetaminophen (Tylenol Tab) 650 mg Q6H PRN PO PAIN AND OR ELEVATED TEMP Last administered on 06/30/16 04:10; Admin Dose 650 MG; Start 06/30/16 at 04:00 Heparin Sodium (Porcine) (Heparin (5000 Units/0.5 ml)) 5,000 unit Q12 SC Last administered on 06/30/16 08:49; Admin Dose 5,000 UNIT; Start 06/30/16 at 09:00 Hydralazine HCl (Apresoline) 10 mg Q4H PRN IV SBP> 160; Start 06/30/16 at 04:00 Diagnostic Test (Pha) (Accu-Chek) 1 ea 02 XX ; Start 07/01/16 at 02:00 Miscellaneous Information 1 ea NOTE XX ; Start 06/30/16 at 04:00 Glucose (Glutose) 15 gm Q15M PRN PO DECREASED GLUCOSE; Start 06/30/16 at 04:00 Glucose (Glutose) 22.5 gm Q15M PRN PO DECREASED GLUCOSE; Start 06/30/16 at 04: 00 Dextrose (D50w Syringe) 25 ml Q15M PRN IV DECREASED GLUCOSE; Start 06/30/16 at 04:00 Dextrose (D50w Syringe) 50 ml Q15M PRN IV DECREASED GLUCOSE; Start 06/30/16 at 04:00 Glucagon (Glucagen) 1 mg Q15M PRN IM DECREASED GLUCOSE; Start 06/30/16 at 04:00 Glucose (Glutose) 15 gm Q15M PRN BUCCAL DECREASED GLUCOSE; Start 06/30/16 at 04 :00 Levothyroxine Sodium (Synthroid) 75 mcg DAILY@06 PO ; Start 07/01/16 at 06:00 Miscellaneous Information (*Order Clarification Bulletin) MEDICATION REQUIRES CLARIFICATI... Q8H XX ; Start 06/30/16 at 14:00 JASON PANCHAL MD June 30, 2016 14:49
[2016-06-30] MEDS: ATORVASTATIN 10 MG TAB PO SCH (21:24)
[2016-07-01] VITALS (12 sets, daily range): BP systolic 121–161; BP diastolic 56–79; PULSE 68–80; RESP 18–20
[2016-07-01] MEDS: ACCU-CHEK XX SCH (02:00)
[2016-07-01] MEDS: LEVOTHYROXINE 75 MCG TAB PO SCH (05:48)
[2016-07-01] MEDS: ZYTIGA 250 MG PO SCH (05:48)
[2016-07-01] MEDS: INSULIN ASPART [NOVOLOG] 3 ML PEN SC SCH ×4 (08:00→21:05)
[2016-07-01] MEDS: SEVELAMER CARBONATE 0.8 GM PKT PO SCH ×3 (08:17→17:27)
[2016-07-01] MEDS: ASPIRIN 81 MG TAB PO SCH (08:20)
[2016-07-01] MEDS: CALCIUM/VITAMIN D (500/200) TAB PO SCH ×2 (08:20→20:45)
[2016-07-01] MEDS: NIFEdipine (XL) 60 MG TAB PO SCH ×2 (08:21→20:46)
[2016-07-01] MEDS: AMIODARONE 200 MG TAB PO SCH ×2 (08:21→20:46)
[2016-07-01] MEDS: MULTIVIT/CA CARB/B CMPLX/FA TAB PO SCH (08:21)
[2016-07-01] MEDS: predniSONE 5 MG TAB PO SCH ×2 (08:21→20:46)
[2016-07-01 08:22] LABS: ADD SCAN DIFF NO
[2016-07-01] MEDS: HEPARIN 5,000 UNIT/0.5 ML VIAL SC SCH ×2 (08:23→21:06)
[2016-07-01 08:34] LABS: BASOPHILS % 0.3 % (0.0-2.0); EOSINOPHILS % 0.3 % (0.0-7.0); HEMATOCRIT 36.8 % (42.0-52.0); HEMOGLOBIN 11.2 g/dl (14.0-18.0); LYMPHOCYTES # 1.1 10^3/ul (0.8-2.9); LYMPHOCYTES % 15.7 % (15.0-51.0); MEAN CORPUSCULAR HEMOGLOBIN 27.3 pg (29.0-33.0); MEAN CORPUSCULAR HGB CONC 30.4 g/dl (32.0-37.0); MEAN CORPUSCULAR VOLUME 89.5 fl (82.0-101.0); MEAN PLATELET VOLUME 10.1 fl (7.4-10.4); MONOCYTE # 0.9 10^3/ul (0.3-0.9); MONOCYTES % 12.7 % (0.0-11.0); NEUTROPHILS % 70.7 % (39.0-77.0); NUCLEATED RED BLOOD CELLS% 0.3 /100WBC (0.0-0.0); PLATELET COUNT 192 10^3/UL (140-415); RED BLOOD COUNT 4.11 10^6/ul (4.70-6.10); RED CELL DISTRIBUTION WIDTH 15.8 % (11.5-14.5); WHITE BLOOD COUNT 7.1 10^3/ul (4.8-10.8)
[2016-07-01 09:47] LABS: POTASSIUM 4.7 mmol/L (3.5-5.1)
[2016-07-01 09:49] LABS: CREATININE 6.01 mg/dl (0.61-1.24)
[2016-07-01 09:50] LABS: CALCIUM 9.5 mg/dl (8.4-10.2); MAGNESIUM 2.2 mg/dl (1.7-2.5); PHOSPHORUS 4.8 mg/dl (2.5-4.9)
--- NOTE | 2016-07-01 11:32 | CONS ---
DATE OF ADMISSION: 06/30/2016 DATE OF CONSULTATION: TYPE OF CONSULTATION: Neurology Thank you, Dr. Payne, for your kind referral for evaluation of encephalopathy. HISTORY OF PRESENT ILLNESS: The patient is a 68-year-old gentleman with past medical history of hyp ertension, diabetes, end-stage renal disease on hemodialysis who, according to history and physical examination note, was admitted from dialysis center after acute episode of altered mentation. He re portedly became confused. At that time, the pressure was around 230/100. According to the patient today, he states that he was brought to the hospital because of elevated blood pressure during dialy sis and because he had some complaints of chest tightness. He does not have any complaints now. Bl ood pressure in the emergency room was 209/88. The patient had a CAT scan of the head here which sh owed generalized atrophy, no acute abnormality, atherosclerotic calcification internal carotid and v ertebral arteries. Neck CT angiogram was done showing cervical arthrosclerotic disease, approximate ly 34% of the right internal carotid and 47% of the left internal carotid artery, mild to moderate s tenosis of the left vertebral artery origin, moderate to severe stenosis of the left external caroti d artery, cervical spondylosis, ossification of the posterior longitudinal ligaments, severe cervica l central canal stenosis at C3-C4 level. MRI of the cervical spine was advised to evaluate the stat us of the cord. Intracranial atherosclerotic disease with moderate to severe stenosis of cavernous right internal carotid artery, moderate left internal carotid artery, and moderate to severe left ve rtebral artery stenosis. Chest x-ray was normal. His labs showed anemia with 11.2 hemoglobin, 36.8 hematocrit, and normal WBCs and platelets. Chemistry on admission showed BUN 49, creatinine 5.94. Normal comprehensive metabolic panel otherwise. TSH 45, elevated. Low free T4. Blood cultures ne gative. ALLERGIES: NONE. MEDICATIONS: Currently 1. Synthroid. 2. Atorvastatin. 3. Coreg. 4. Cordarone. 5. Aspirin. 6. Calcium. 7. Nifedipine. 8. Prednisone 5 mg twice daily. 9. Heparin for DVT prevention. 10. Renvela. 11. Insulin sliding scale. SOCIAL HISTORY: No alcohol, tobacco, drug use. FAMILY HISTORY: Noncontributory. REVIEW OF SYSTEMS: No complaints. All pertinent positives included in the above history of present illness. PHYSICAL EXAMINATION: VITAL SIGNS: Today, temperature 98.1, pulse 71, respiration 18, blood pressure 168/70 blood pressur e. GENERAL: Not in acute distress, lying in bed. HEENT: Normocephalic, atraumatic head. NECK: No carotid bruits. No thyromegaly. LUNGS: Clear to auscultation bilaterally. CARDIAC: Normal cardiac rhythm and sounds. ABDOMEN: Soft, nontender. EXTREMITIES: No cyanosis, clubbing, or edema. NEUROLOGIC: He is awake, alert, and oriented x3 with fluent speech. Cranial nerve examination show s intact visual yeh bilaterally. Pupils sluggish from 3 to 2 mm bilaterally. Extraocular moveme nts intact without nystagmus. Symmetrical face. Preserved facial strength and sensation. Tongue i s in midline. Palate elevates symmetrically. Motor strength examination preserved in all extremiti es. Normal bulk, tone, and strength. Sensory examination is intact grossly to light touch and pain . Deep tendon reflexes 2+ upper extremities and knees, absent ankle jerks, downgoing. Equivocal re sponse to plantar stimulation bilaterally. Coordination is preserved on [id number] testing. No dysmetria or tremor. Gait was not assess ed. IMPRESSION: Transient encephalopathy, possibly secondary to elevated blood pressure. The patient i s fully oriented now. MRI of the brain and EEG were requested. Continue current treatment. Thank you very much for this interesting consultation. Keep the patient euglycemic, normotensive. Continue aspirin and statin. Dictated By: KAYLEY HOWARD/GOPAL Conf#: [id number] DID#: [id number]
--- NOTE | 2016-07-01 14:29 | CONS ---
DATE OF ADMISSION: 06/30/2016 DATE OF CONSULTATION: 07/01/2016 TYPE OF CONSULTATION: Vascular Surgery Dear Doctors: Mr. Hernandez is a 75-year-old gentleman who presented to [facility] secondary to epi sode of altered mental status in which at the end of his dialysis session on Monday night, he was having hypertensive crisis with his blood pressures being over 200/100. The patient was admitted t o the emergency room for further workup. During this time, the patient underwent CT angiography of the neck, which had identified patient having bilateral carotid artery stenosis. Upon evaluation, i t seems the patient has a right ICA about 34% and about 50% on the left. There was some mild to mod erate stenosis of the left vertebral artery. Otherwise, no acute infarct was identified. Currently , patient has no complaints of headache, nausea, vomiting, fever or chills. The patient denies any amaurosis fugax or upper or lower extremity weakness or paralysis. The patient denies lower extremi ty rest pain; however, he does have some claudication. Further, the patient has been an end-stage r enal disease who has been on dialysis for many years. He mentioned that this fistula was created ba mohan in [address] [facility]. He has a left upper extremity radiocephalic fistula and has not found a vascular surgeon regarding his fistula for many years. Of note, the patient also has had hi story of prostate cancer in which he receives hormonal therapy. His normal dialysis sessions are al so Monday, , Monday and he is right hand dominant. REVIEW OF SYSTEMS: A 14-point review performed and negative except what is mentioned in the HPI. PAST MEDICAL HISTORY: Entails hypertension, coronary artery disease, diabetes, end-stage renal dise ase, anemia of chronic disease. He is on hemodialysis Monday, and Monday. He has hist ory of a PermCath, a left upper extremity radiocephalic fistula creation, history of prostate cancer , mineral bone disorder. FAMILY HISTORY: Positive for hypertension. SOCIAL HISTORY: Denies tobacco, alcohol or illicit drug use. ALLERGIES: NO KNOWN DRUG ALLERGIES. PHYSICAL EXAMINATION: GENERAL: He is alert and oriented x3, no apparent distress. HEENT: Normocephalic, atraumatic. PERRLA, EOMI. Mucosa moist. NECK: Supple. No carotid bruit. PULMONARY: Clear to auscultation bilaterally. No crackles. CARDIOVASCULAR: S1, S2 present. No murmurs. ABDOMEN: Soft, nontender, nondistended. Bowel sounds positive. EXTREMITIES: Right lower extremity palpable femoral pulse, nonpalpable pedal pulse. Motor, sensory intact. Capillary refill 2 to 3 seconds. No ulcers identified. Left lower extremity palpable femoral pulse, nonpalpable pedal pulse. Motor, sensory intact. Capil ralph refill 2 to 3 seconds. No ulcers. Left upper extremity palpable brachial pulse. Motor, sensory intact. Capillary refill 2 seconds. Surgical scars are well healed in the distal aspect of the forearm. There is radiocephalic fistula with bruit and thrill present in the proximal aspect; however, in the mid forearm it seems the patie nt has a hematoma secondary to a cannulation the other day in which there was a malpositioned needle , and at the moment nontender. ASSESSMENT AND PLAN: 1. End-stage renal disease: It seems that the patient has had longstanding history of being on yan lysis through the left upper extremity radiocephalic fistula. However, he has not had vascular surv eillance and has a vascular surgeon. We will plan to obtain a fistula ultrasound to further evaluat e his fistula to delineate if the patient has stenosis in the fistula. 2. Bilateral carotid artery stenosis without symptoms: It seems the patient had altered mental sta tus that is not related to his carotid artery disease. I would recommend for the patient to follow with us as an outpatient for vascular surveillance with obtaining carotid ultrasounds in a few month s to reevaluate the areas that were identified. Optimize vascular status (BP meds, diet, nutrition, exercise, sugar control, antiplatelets). Discussed findings, plan and management with the patient and he understands. Thank you for allowing us to partake in the care of your patient. Please call with any questions. No current vascular interventions from a surgical standpoint, we will continue to follow the finding s as an outpatient with a carotid duplex. Dictated By: DEB LANDA/GOPAL Conf#: [id number] DID#: [id number]
--- NOTE | 2016-07-01 14:55 | CONS ---
Date/Time of Note Date/Time of Note DATE: 07/01/16 TIME: 14:53 Assessment/Plan Assessment/Plan Chief Complaint/Hosp Course Assessment: Chest pain - ruled out for myocardial infarction, likely due to elevated blood pressures Accelerated hypertension - blood pressures now improved Acute encephalopathy - resolved, evaluated by neurology Coronary artery disease - history of right coronary artery stenting Dyslipidemia Probable history of atrial fibrillation - on amiodarone as outpatient, currently sinus rhythm Bilateral carotid disease - nonobstructive, evaluated by vascular surgery End-stage renal disease - on hemodialysis Diabetes mellitus Hypothyroidism Prostate cancer - on hormone therapy Recommendations: -echocardiogram reported LVEF 55% -coronary angiography 04/12/2016 showed nonobstructive disease, no repeat coronary evaluation at this time -continue carvedilol 12.5mg BID and nifedipine 60mg BID -continue aspirin 81mg daily and statin -continue amiodarone 200mg BID -outpatient cardiology follow up Problems: Consultation Date/Type/Reason Admit Date/Time June 30, 2016 at 01:07 Initial Consult Date Type of Consultation: Cardiology 24 HR Interval Summary Free Text/Dictation No acute events. No further chest pain. Detailed Summary Additional Comments 14 point review of systems without changes. Exam/Review of Systems Vital Signs Vitals Vital Signs Date Time Temp Pulse Resp B/P Pulse Ox O2 Delivery O2 Flow Rate FiO2 07/01/16 12:15 68 07/01/16 11:49 98.2 18 121/56 96 07/01/16 07:28 Nasal Cannula 2.0 Intake and Output 06/30/16 06/30/16 07/01/16 15:00 23:00 07:00 Intake Total 1000 ml 500 ml Output Total 2000 ml Balance -1000 ml 500 ml Exam Constitutional: alert, well developed Psych: nl mood/affect, no complaints Head: atraumatic, normocephalic Eyes: nl conjunctiva, nl lids ENMT: nl external ears & nose, nl nasal mucosa & septum Neck: non-tender, supple Respiratory: clear to auscultation, normal air movement Cardiovascular: regular rate and rhythm Gastrointestinal: non-tender, soft Musculoskeletal: nl extremities to inspection Neurological: nl mental status, nl speech Results Result Diagram: 07/01/16 0749 07/01/16 0749 Results 24 hrs Laboratory Tests Test 06/30/16 17:21 06/30/16 21:28 07/01/16 07:49 07/01/16 08:15 Bedside Glucose 136 103 106 White Blood Count 7.1 Red Blood Count 4.11 L Hemoglobin 11.2 L Hematocrit 36.8 L Mean Corpuscular Volume 89.5 Mean Corpuscular Hemoglobin 27.3 L Mean Corpuscular Hemoglobin Concent 30.4 L Red Cell Distribution Width 15.8 H Platelet Count 192 # Mean Platelet Volume 10.1 Neutrophils % 70.7 Lymphocytes % 15.7 Monocytes % 12.7 H Eosinophils % 0.3 Basophils % 0.3 Nucleated Red Blood Cells % 0.3 H Neutrophils # 5.0 Lymphocytes # 1.1 Monocytes # 0.9 Eosinophils # 0.0 Basophils # 0.0 Nucleated Red Blood Cells # 0.0 Sodium Level 139 Potassium Level 4.7 Chloride Level 98 Carbon Dioxide Level 25 Anion Gap 21 #H Blood Urea Nitrogen 39 #H Creatinine 6.01 H Glucose Level 105 Calcium Level 9.5 Phosphorus Level 4.8 Magnesium Level 2.2 Troponin I 0.026 Test 07/01/16 11:54 Bedside Glucose 146 Medications Medications Current Medications Amiodarone HCl (Cordarone) 200 mg BID PO Last administered on 07/01/16 08:21; Admin Dose 200 MG; Start 06/30/16 at 09:00 Aspirin (Aspirin) 81 mg DAILY PO Last administered on 07/01/16 08:20; Admin Dose 81 MG; Start 06/30/16 at 09:00 Calcium/Vitamin D (Oyster Shell/ Vit-D (500/200)) 1 tab BID PO Last administered on 07/01/16 08:20; Admin Dose 1 TAB; Start 06/30/16 at 09:00 Multivit/Ca Carb/ B Cmplx/FA/Prenat (Darcy-Jean-Pierre) 1 tab DAILY PO Last administered on 07/01/16 08:21; Admin Dose 1 TAB; Start 06/30/16 at 09:00 Nifedipine (Procardia Xl) 60 mg BID PO Last administered on 07/01/16 08:21; Admin Dose 60 MG; Start 06/30/16 at 09:00 Prednisone (Prednisone) 5 mg BID PO Last administered on 07/01/16 08:21; Admin Dose 5 MG; Start 06/30/16 at 09:00 Patient Own Medication 4 ea DAILY@0630 PO Last administered on 5/26/17at 05:48 ; Admin Dose 4 EA; Start 07/01/16 at 06:30 Atorvastatin Calcium (Lipitor) 10 mg DAILY@21 PO Last administered on 21:24; Admin Dose 10 MG; Start 06/30/16 at 21:00 Zolpidem Tartrate (Ambien) 10 mg HS PRN PO INSOMNIA Last administered on 21:23; Admin Dose 10 MG; Start 06/30/16 at 04:00 Ondansetron HCl (Zofran Inj) 4 mg Q4H PRN IV NAUSEA AND/OR VOMITING; Start at 04:00 Acetaminophen (Tylenol Tab) 650 mg Q6H PRN PO PAIN AND OR ELEVATED TEMP Last administered on 06/30/16 04:10; Admin Dose 650 MG; Start 06/30/16 at 04:00 Heparin Sodium (Porcine) (Heparin (5000 Units/0.5 ml)) 5,000 unit Q12 SC Last administered on 07/01/16 08:23; Admin Dose 5,000 UNIT; Start 06/30/16 at 09:00 Hydralazine HCl (Apresoline) 10 mg Q4H PRN IV SBP> 160 Last administered on 16:06; Admin Dose 10 MG; Start 06/30/16 at 04:00 Diagnostic Test (Pha) (Accu-Chek) 1 ea 02 XX ; Start 07/01/16 at 02:00 Miscellaneous Information 1 ea NOTE XX ; Start 06/30/16 at 04:00 Glucose (Glutose) 15 gm Q15M PRN PO DECREASED GLUCOSE; Start 06/30/16 at 04:00 Glucose (Glutose) 22.5 gm Q15M PRN PO DECREASED GLUCOSE; Start 06/30/16 at 04: 00 Dextrose (D50w Syringe) 25 ml Q15M PRN IV DECREASED GLUCOSE; Start 06/30/16 at 04:00 Dextrose (D50w Syringe) 50 ml Q15M PRN IV DECREASED GLUCOSE; Start 06/30/16 at 04:00 Glucagon (Glucagen) 1 mg Q15M PRN IM DECREASED GLUCOSE; Start 06/30/16 at 04:00 Glucose (Glutose) 15 gm Q15M PRN BUCCAL DECREASED GLUCOSE; Start 06/30/16 at 04 :00 Levothyroxine Sodium (Synthroid) 75 mcg DAILY@06 PO Last administered on 05:48; Admin Dose 75 MCG; Start 07/01/16 at 06:00 Carvedilol (Coreg) 12.5 mg BID PO Last administered on 07/01/16 08:20; Admin Dose 12.5 MG; Start 06/30/16 at 21:00 JASON PANCHAL MD July 01, 2016 14:55
--- NOTE | 2016-07-01 17:40 | RADRPT ---
PROCEDURE: MRI Brain without contrast. CLINICAL INDICATION: Altered mental status TECHNIQUE: Multiplanar MRI of the brain without contrast was performed on a 3.0 T scanner with the following sequences obtained: T1-weighted, T2-weighted/FLAIR, diffusion weighted (with ADC map), GR E. COMPARISON: CT brain 06/29/2016 FINDINGS: No acute/recent ischemic infarction or intracranial hemorrhage / blood degradation products are iden tified. No extra-axial fluid collection is seen. There is no mass effect. No midline shift is identified. The ventricles and sulci are mildly enlarged, compatible with volume loss. Mild areas of increased T2 / FLAIR signal intensity are present in the periventricular and deep whit e matter, nonspecific but likely related to chronic small vessel ischemic changes. Flow voids are identified in the proximal intracranial arteries and dural sinuses suggesting patency . The mastoid air cells and paranasal sinuses are grossly clear. IMPRESSION: 1. No evidence of acute intracranial pathology. 2. Mild volume loss, with mild chronic small vessel ischemic changes. RPTAT: VV .Shawn Farmer MD, MD Date Time Electronically viewed and signed by .Shawn Farmer MD, on 07/01/2016 17:39 .O/
[2016-07-01] MEDS: ATORVASTATIN 10 MG TAB PO SCH (20:45)
[2016-07-02] VITALS (17 sets, daily range): BP systolic 105–159; BP diastolic 55–103; PULSE 66–86; RESP 18–20
[2016-07-02] MEDS: ACCU-CHEK XX SCH (02:00)
[2016-07-02] MEDS: LEVOTHYROXINE 75 MCG TAB PO SCH (06:16)
[2016-07-02] MEDS: ZYTIGA 250 MG PO SCH (06:16)
[2016-07-02] MEDS: SEVELAMER CARBONATE 0.8 GM PKT PO SCH ×2 (07:59→12:00)
[2016-07-02] MEDS: INSULIN ASPART [NOVOLOG] 3 ML PEN SC SCH ×2 (08:00→11:52)
[2016-07-02 08:18] LABS: ADD SCAN DIFF NO
[2016-07-02 08:20] LABS: BASOPHILS % 0.2 % (0.0-2.0); EOSINOPHILS # 0.1 10^3/ul (0.0-0.5); EOSINOPHILS % 0.6 % (0.0-7.0); HEMATOCRIT 34.4 % (42.0-52.0); HEMOGLOBIN 10.5 g/dl (14.0-18.0); LYMPHOCYTES % 12.3 % (15.0-51.0); MEAN CORPUSCULAR HEMOGLOBIN 27.5 pg (29.0-33.0); MEAN CORPUSCULAR HGB CONC 30.5 g/dl (32.0-37.0); MEAN CORPUSCULAR VOLUME 90.1 fl (82.0-101.0); MEAN PLATELET VOLUME 10.8 fl (7.4-10.4); MONOCYTE # 0.7 10^3/ul (0.3-0.9); MONOCYTES % 8.7 % (0.0-11.0); NEUTROPHIL # 6.5 10^3/ul (1.6-7.5); NEUTROPHILS % 77.8 % (39.0-77.0); PLATELET COUNT 223 10^3/UL (140-415); RED BLOOD COUNT 3.82 10^6/ul (4.70-6.10); WHITE BLOOD COUNT 8.4 10^3/ul (4.8-10.8)
[2016-07-02 08:43] LABS: CALCIUM 9.6 mg/dl (8.4-10.2); CREATININE 7.65 mg/dl (0.61-1.24); POTASSIUM 5.4 mmol/L (3.5-5.1)
[2016-07-02] MEDS: MULTIVIT/CA CARB/B CMPLX/FA TAB PO SCH (08:50)
[2016-07-02] MEDS: CALCIUM/VITAMIN D (500/200) TAB PO SCH (08:50)
[2016-07-02] MEDS: NIFEdipine (XL) 60 MG TAB PO SCH (08:50)
[2016-07-02] MEDS: AMIODARONE 200 MG TAB PO SCH (08:51)
[2016-07-02] MEDS: predniSONE 5 MG TAB PO SCH (08:51)
[2016-07-02] MEDS: HEPARIN 5,000 UNIT/0.5 ML VIAL SC SCH (08:57)
[2016-07-02] MEDS: ASPIRIN 81 MG TAB PO SCH (09:05)
[2016-07-02] MEDS ORDERED: HEPARIN 1000 UNITS/ML 10 ML INJ ONE (11:48)
--- NOTE | 2016-07-02 14:22 | DS ---
DATE OF ADMISSION: 06/30/2016 DATE OF DISCHARGE: 07/02/2016 HOSPITAL COURSE: This is a 75-year-old male with a past medical history of prostate cancer on hormo nal replacement therapy, history of end-stage renal disease on dialysis Monday, , Monday with access left AV fistula, history of hypertension, diabetes, history of arrhythmia, who presented to [facility] with altered mental status. The patient was on hemodialysis and lo st consciousness and was complaining of chest heaviness. As a result, he was admitted to [facility] for evaluation. In terms of the patient's syncope and altered mental status, etiology may have been hemodynamics, va sovagal. The patient had a full workup including MRI of the brain which showed no acute findings. A CT angio was performed which did show evidence of atherosclerotic disease, but no significant elías re stenosis. The patient was seen by neurologist, Dr. Jabier Rhodes, as well as vascular surg adriane, Dr. Dyer. The patient was recommended for medical management. No surgical intervention w as necessary. The patient during his hospital course, had no recurrent episodes of syncope, loss of consciousness. The patient was also seen by adjunct teacher, Dr. Rowley, and echogram was performed whi ch showed ejection fraction of 55%. The patient at this point has been clinically stable. He has b een stable on telemetry. Please note that during the hospital course, the patient was also noted to be hypothyroid with elevated TSH and suppressed free T4. The patient was initiated on Synthroid an d has been tolerating the medication well. Plan at this point would be for the patient to be discharged home. He will follow up with myself in 1 week's time. He will also follow up with Dr. Dyer in outpatient setting for further evaluat ion of his carotid arteries. Currently, at time of discharge, the patient is stable, in no acute di stress. FINAL DIAGNOSES: 1. End-stage renal disease. 2. Syncope, etiology is likely vasovagal. 3. Anemia of chronic disease. 4. Mineral bone disorder. 5. Atypical chest pain, resolved. No evidence of ischemia. 6. Hypertension. 7. Hypothyroidism. The patient was initiated on Synthroid. 8. Prostate cancer. 9. History of arrhythmia. 10. Mild hyperkalemia. 11. Hyponatremia. CONDITION ON DISCHARGE: Please note at the time of discharge, the patient is stable, in no acute di stress. DISCHARGE MEDICATIONS: Please see reconciliation list. The patient will resume home medications o f: 1. Zytiga. 2. Amiodarone. 3. Aspirin. 4. Metoprolol. 5. Nifedipine. 6. Prednisone. 7. Sevelamer 8. Zocor. 9. The patient will be also initiated on Synthroid 50 mcg daily. FOLLOWUP: Please note patient will follow up with myself in [address] Dyer in 1 we ek's time. Please note I spent over 40 minutes of time preparing the patient's discharge. Dictated By: ASIM GARCIA/GOPAL Conf#: [id number] DID#: [id number]
--- NOTE | 2016-07-02 17:30 | SP ---
DATE OF PROCEDURE: 07/01/2016 PROCEDURE: 07/01/2016 DESCRIPTION OF PROCEDURE: Routine EEG was recorded digitally. Cmxus-[id number] and dzwcp-te-kmf shae ages were recorded and reviewed. All impedances were measured and recorded. Cap electrodes were pl aced in accordance with International 10-20 system of electrode placement. INDICATION: The patient is a 75-year-old gentleman with transient encephalopathy. FINDINGS: Symmetrically distributed background activity of low to medium amplitude ranging in frequ ency between 8-9 cycles per second was seen throughout the recording. This activity attenuates with eye opening. Normal response to photic stimulation. No epileptiform transients were seen. No sig ns of ongoing electrographic seizures or lateralized slowing. IMPRESSION: Normal study. Please correlate clinically. Dictated By: KAYLEY HOWARD/GOPAL Conf#: [id number] DID#: [id number]
--- NOTE | 2016-07-05 10:20 | PN ---
DATE: 07/01/2016 SUBJECTIVE: The patient is stable. No acute events overnight. No fevers, chills, nausea, or vomit ing. Patient had hemodialysis yesterday and tolerated it well. OBJECTIVE: VITAL SIGNS: Blood pressure 158/70, respirations 18, pulse 78, temperature 98.1. HEENT: Head is normocephalic. NECK: Supple. HEART: Regular rate. LUNGS: Show diminished breath sounds at the base. ABDOMEN: Soft, nontender to palpation. No rebound or guarding. EXTREMITIES: Negative for clubbing or cyanosis. No edema. DERMATOLOGIC: No rashes. MUSCULOSKELETAL: Have no joint effusion. NEUROLOGIC: No change in exam. MEDICATIONS: The patient's medications were reviewed. LABORATORY DATA: Shows a white count of 7.1, hemoglobin 11.2, hematocrit 36.8, platelet count is 19 2. The patient's blood cultures are negative x2. IMAGING: CT angio of the neck shows cervical atherosclerotic disease with 34 and 47% stenoses of th e right and left internal carotid arteries, mild stenosis of the left vertebral artery, and moderate to severe stenosis of the left external carotid artery. MRI is currently pending. ASSESSMENT AND PLAN: 1. End-stage renal disease. The patient had hemodialysis yesterday and tolerated it well. Plan fo r dialysis again tomorrow. Will dialyze for 3 hours, 3K bath, calcium 2.5. 2. Anemia of chronic disease. Continue to monitor H and H levels. No need for Epogen. 3. Mineral bone disorder. Continue to monitor calcium and phosphorus levels. Continue phos binder s. 4. Hypertension. Continue the current blood pressure regimen. Continue ultrafiltration dialysis. 5. Syncope. Etiology is unclear, possible vasovagal, possible hemodynamics. The patient's workup is ongoing. CT angio showed evidence of internal carotid and vertebral stenosis. EEG is currently pending. Plan at this point is to place vascular surgery for evaluation to see if the patient requi res any kind of surgical intervention for his atherosclerotic disease. Will follow up with Dr. Dru tirado, neurologist. MRI of the brain is pending. Will continue the current medical management and travis tor. 6. Atypical chest pain. Resolved. Appreciate cardiology's evaluation. Continue medical managemen t. 7. History of arrhythmia. Continue amiodarone. 8. Hypothyroidism. The patient's TSH levels are elevated. T3 and T4 levels are suppressed. The p atient was started on Synthroid 75 mcg daily. Will continue. 9. History of prostate cancer. Continue the current medical management. Continue prednisone. 10. Debility. Placed a PT consult for evaluation. 11. Gastrointestinal and deep venous thrombosis prophylaxis. Continue heparin and PPI. Dictated By: ASIM GARCIA/GOPAL Conf#: [id number] DID#: [id number]
== END 2016-07-02 15:33 | disposition home or self-care (01) | DRG 682 ==
LOC: E/R 20:39 → MS4 06-30 01:07
PROVIDERS: ADMIT Internal Medicine; ATTEND Internal Medicine
PROC: 5A1D60Z (ICD-10-PCS; principal; 2016-06-30)
PROC: 4A00X4Z Measurement of Central Nervous Electrical Activity, External Approach (ICD-10-PCS; 2016-07-01)
DX: I12.0 Hypertensive chronic kidney disease with stage 5 chronic kidney disease or end stage renal disease (principal); N18.6 End stage renal disease; G93.40 Encephalopathy, unspecified; E11.22 Type 2 diabetes mellitus with diabetic chronic kidney disease; E87.1 Hypo-osmolality and hyponatremia; I16.1 Hypertensive emergency; D63.8 Anemia in other chronic diseases classified elsewhere; C61 Malignant neoplasm of prostate; R55 Syncope and collapse; R07.89 Other chest pain; E03.9 Hypothyroidism, unspecified; I49.9 Cardiac arrhythmia, unspecified; I25.10 Atherosclerotic heart disease of native coronary artery without angina pectoris; E78.5 Hyperlipidemia, unspecified; I25.2 Old myocardial infarction; E87.5 Hyperkalemia; I65.23 Occlusion and stenosis of bilateral carotid arteries; Z99.2 Dependence on renal dialysis; Z79.82 Long term (current) use of aspirin; Z95.5 Presence of coronary angioplasty implant and graft; Z79.52 Long term (current) use of systemic steroids; Z82.49 Family history of ischemic heart disease and other diseases of the circulatory system
CPT/HCPCS: 36415; 70450; 70498; 70551; 71010; 80048; 80053; 80061; 82140; 82607; 82746; 82962; 83036; 83735; 84100; 84439; 84443; 84481; 84484; 85025; 87040; 87081; 90935; 93005; 93306; 95819; J0360; J1644; J1815; J7040; J7512; Q9967

== ENCOUNTER 2016-09-19 05:42 | Day surgery (SDC) | payer MEDICARE, OTHER ==
[~2016-09-19] VITALS: Ht 167.6 cm; Wt 54.5 kg
[~2016-09-19 05:42] MED LIST changes: +ABIR250T PO; +AMIO200T2 PO; -ASPI-664 PO; +ASPI81TA3 PO; -CALC1TAB32 PO; +CALC1TAB79 PO; +SEVE800T7 PO; -TEMA15CA PO; +TEMA30CA PO; -TRAM50TA2 PO
[2016-09-19 06:32] VITALS: Ht 167.6 cm; Wt 54.5 kg
[2016-09-19 06:45] VITALS: BP 155/59; PULSE 86; RESP 12
[2016-09-19] MEDS ORDERED: HEPARIN 1000 UNITS/ML 10 ML INJ ONE (06:46)
[2016-09-19] MEDS ORDERED: LIDOCAINE 1% (MDV) 20 ML INJ ONE (06:46)
[2016-09-19] MEDS ORDERED: FENTAnyl 50 MCG/ML VIAL ONE (06:47)
[2016-09-19] MEDS ORDERED: MIDAZOLAM 1 MG/ML 2 ML INJ ONE (06:47)
[2016-09-19 07:21] LABS: ABNORMAL IP MESSAGE 1; BASOPHIL # 0.1 10^3/ul (0.0-0.1); BASOPHILS % 0.3 % (0.0-2.0); EOSINOPHILS # 0.1 10^3/ul (0.0-0.5); EOSINOPHILS % 0.3 % (0.0-7.0); HEMATOCRIT 32.7 % (42.0-52.0); HEMOGLOBIN 9.8 g/dl (14.0-18.0); LYMPHOCYTES # 2.5 10^3/ul (0.8-2.9); LYMPHOCYTES % 13.2 % (15.0-51.0); MEAN CORPUSCULAR HEMOGLOBIN 27.9 pg (29.0-33.0); MEAN CORPUSCULAR VOLUME 93.2 fl (82.0-101.0); MEAN PLATELET VOLUME 9.9 fl (7.4-10.4); MONOCYTE # 2.2 10^3/ul (0.3-0.9); MONOCYTES % 11.3 % (0.0-11.0); NEUTROPHIL # 14.2 10^3/ul (1.6-7.5); NEUTROPHILS % 74.1 % (39.0-77.0); NUCLEATED RED BLOOD CELLS% 0.1 /100WBC (0.0-0.0); PLATELET COUNT 177 10^3/UL (140-415); POSITIVE DIFF @See below; RED BLOOD COUNT 3.51 10^6/ul (4.70-6.10); RED CELL DISTRIBUTION WIDTH 22.5 % (11.5-14.5)
[2016-09-19] MEDS ORDERED: DEXTROSE 50% 50 ML SYRINGE ONE (07:24)
[2016-09-19 07:28] LABS: HOLD TRANSMISSIONS 1
[2016-09-19 07:29] LABS: INR 0.85; PROTIME 11.6 Sec (12.2-14.2); PT RATIO 0.9
[2016-09-19 07:30] LABS: PARTIAL THROMBOPLASTIN TIME 27.6 Sec (25.0-35.0)
--- NOTE | 2016-09-19 07:33 | HPN ---
Date/Time of Note Date/Time of Note DATE: 09/19/16 TIME: 07:33 Interval H&P Admission Note Pt. seen H&P reviewed: No system changes DEB ARIAS MD Sep 19, 2016 07:33
[2016-09-19 07:36] LABS: WHITE BLOOD COUNT 19.1 10^3/ul (4.8-10.8)
--- NOTE | 2016-09-19 07:37 | CONS ---
Date/Time of Note Date/Time of Note DATE: 09/19/16 TIME: 07:36 Consultation Date/Type/Reason Admit Date/Time Hx of Present Illness Vascular Surgery H&P Dear Doctors: Mr. Hernandez is a 75-year-old gentleman who presented to [facility] secondary to episode of altered mental status in which at the end of his dialysis session on Monday night, he was having hypertensive crisis with his blood pressures being over 200/100. The patient was admitted to the emergency room for further workup. During this time, the patient underwent CT angiography of the neck, which had identified patient having bilateral carotid artery stenosis. Upon evaluation, it seems the patient has a right ICA about 34 % and about 50% on the left. There was some mild to moderate stenosis of the left vertebral artery. Otherwise, no acute infarct was identified. Currently, patient has no complaints of headache, nausea, vomiting, fever or chills. The patient denies any amaurosis fugax or upper or lower extremity weakness or paralysis. The patient denies lower extremity rest pain; however, he does have some claudication. Further, the patient has been an end-stage renal disease who has been on dialysis for many years. He mentioned that this fistula was created back in 2008 at [facility]. He has a left upper extremity radiocephalic fistula and has not found a vascular surgeon regarding his fistula for many years. Of note, the patient also has had history of prostate cancer in which he receives hormonal therapy. His normal dialysis sessions are also Monday, , Monday and he is right hand dominant. REVIEW OF SYSTEMS: A 14-point review performed and negative except what is mentioned in the HPI. PAST MEDICAL HISTORY: Entails hypertension, coronary artery disease, diabetes, end-stage renal disease, anemia of chronic disease. He is on hemodialysis Monday, and Monday. He has history of a PermCath, a left upper extremity radiocephalic fistula creation, history of prostate cancer, mineral bone disorder. FAMILY HISTORY: Positive for hypertension. SOCIAL HISTORY: Denies tobacco, alcohol or illicit drug use. ALLERGIES: NO KNOWN DRUG ALLERGIES. PHYSICAL EXAMINATION: GENERAL: He is alert and oriented x3, no apparent distress. HEENT: Normocephalic, atraumatic. PERRLA, EOMI. Mucosa moist. NECK: Supple. No carotid bruit. PULMONARY: Clear to auscultation bilaterally. No crackles. CARDIOVASCULAR: S1, S2 present. No murmurs. ABDOMEN: Soft, nontender, nondistended. Bowel sounds positive. EXTREMITIES: Right lower extremity palpable femoral pulse, nonpalpable pedal pulse. Motor, sensory intact. Capillary refill 2 to 3 seconds. No ulcers identified. Left lower extremity palpable femoral pulse, nonpalpable pedal pulse. Motor, sensory intact. Capillary refill 2 to 3 seconds. No ulcers. Left upper extremity palpable brachial pulse. Motor, sensory intact. Capillary refill 2 seconds. Surgical scars are well healed in the distal aspect of the forearm. There is radiocephalic fistula with bruit and thrill present in the proximal aspect; however, in the mid forearm it seems the patient has a hematoma secondary to a cannulation the other day in which there was a malpositioned needle, and at the moment nontender. ASSESSMENT AND PLAN: 1. End-stage renal disease: It seems that the patient has had longstanding history of being on dialysis through the left upper extremity radiocephalic fistula. However, he has not had vascular surveillance and has a vascular surgeon. We will plan to obtain a fistula ultrasound to further evaluate his fistula to delineate if the patient has stenosis in the fistula. 2. Bilateral carotid artery stenosis without symptoms: It seems the patient had altered mental status that is not related to his carotid artery disease. I would recommend for the patient to follow with us as an outpatient for vascular surveillance with obtaining carotid ultrasounds in a few months to reevaluate the areas that were identified. Optimize vascular status (BP meds, diet, nutrition, exercise, sugar control, antiplatelets). Discussed findings, plan and management with the patient and he understands. Thank you for allowing us to partake in the care of your patient. Please call with any questions. No current vascular interventions from a surgical standpoint, we will continue to follow the findings as an outpatient with a carotid duplex. Past Surgical History Past Surgical Hx: other Social History Smoking Status: Never smoker Exam/Review of Systems Vital Signs Vitals Vital Signs Date Time Temp Pulse Resp B/P Pulse Ox O2 Delivery O2 Flow Rate FiO2 09/19/16 06:45 98.2 86 12 155/59 100 Room Air Results Result Diagram: 09/19/16 0705 Results 24 hrs Laboratory Tests Test 09/19/16 07:05 09/19/16 07:23 White Blood Count 19.1 #H Red Blood Count 3.51 L Hemoglobin 9.8 L Hematocrit 32.7 L Mean Corpuscular Volume 93.2 Mean Corpuscular Hemoglobin 27.9 L Mean Corpuscular Hemoglobin Concent 30.0 L Red Cell Distribution Width 22.5 #H Platelet Count 177 # Mean Platelet Volume 9.9 Neutrophils % 74.1 Lymphocytes % 13.2 L Monocytes % 11.3 H Eosinophils % 0.3 Basophils % 0.3 Nucleated Red Blood Cells % 0.1 H Neutrophils # 14.2 H Lymphocytes # 2.5 Monocytes # 2.2 H Eosinophils # 0.1 Basophils # 0.1 Nucleated Red Blood Cells # 0.0 CBC Results Faxed/Phoned 1 *H Prothrombin Time 11.6 L Prothrombin Time Ratio 0.9 INR International Normalized Ratio 0.85 Activated Partial Thromboplast Time 27.6 Bedside Glucose 43 *L DEB ARIAS MD Sep 19, 2016 07:36
[2016-09-19 07:39] LABS: CALCIUM 9.9 mg/dl (8.4-10.2); CREATININE 8.23 mg/dl (0.61-1.24); POTASSIUM 3.4 mmol/L (3.5-5.1)
--- NOTE | 2016-09-19 07:39 | OPR ---
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 Patient has been informed of the alternatives, risks, and benefits of angiogram, balloon angioplasty and stenting. Risks including but not limited to bleeding, thrombosis, embolization, myocardial infarction, , device malfunction, infection, and nephrotoxicity and patient has agreed to proceed. This is the first diagnostic angiogram in this clinical setting PROCEDURE: 1. Ultrasound guided access of left Upper extremity fistula 2. Left upper extremity fistulogram 3. Central Venogram (subclavian vein, Superior Vena Cava, Internal jugular vein) 4. Left upper extremity 5. Left brachiobasilic vein venoplasty [id number] atlas balloon 6. 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 Sedation was administered without complication. Left upper extremity was shaved, prepped and draped in the standard sterile fashion. A time-out and the appropriate site was marked and confirmed. Local anesthesia was infiltrated in the region of the left upper extremity fistula. The fistula was cannulated with a micro access needle under ultrasound guidance and a guide wire advanced into the cephalic vein under fluoroscopic guidance. The needle was removed and a glide catheter as placed. Multi-station fistulogram and venogram was conducted of the upper extremity and the central veins. Findings noted above. Krishna wire was then passed through the microcatheter and placed in the left brachiocephalic vein. The catheter was then exchanged with a short 6-Nigerien sheath. Balloon angioplasty of the central veins were performed of the left subclavian and was performed using [id number] balloon. completion venogram demonstrated improved radiographic flow through the areas of previous stenosis. At this point the balloon, sheath and wire were removed and using a 3-0 Nylon suture the puncture site was closed. Patient was taken to the recovery unit in fair condition. PLAN: We'll schedule the patient for close fistula surveillance ROBERTO ARIAS MD Sep 19, 2016 07:39 ROBERTO ARIAS MD Sep 19, 2016 07:39
--- NOTE | 2016-09-19 07:45 | RADRPT ---
PROCEDURE: XR Chest. CLINICAL INDICATION: Pre-procedure TECHNIQUE: AP Portable chest. COMPARISON: 10/12/2015 FINDINGS: There is a left subclavian double-lumen catheter with the tip in the SVC. The cardiomediastinal silhouette is within normal limits. The aorta is calcified. No pneumothorax i s seen. There are probable small bilateral pleural effusions and basilar atelectasis. Unchanged rig ht apical calcifications and scarring. The osseous structures are intact. IMPRESSION: Small bilateral pleural effusions and bibasilar atelectasis. Left dialysis catheter in place. Physician Byron Date Time Electronically viewed and signed by Physician Byron on 09/19/2016 07:45 CS/
[2016-09-19 08:25] VITALS: BP 147/67; PULSE 87; RESP 18
--- NOTE | 2016-09-19 19:34 | RADRPT ---
Vent Rate: 86 bpm RR Interval: 0 msec [place] Interval: 142 msec QRS Duration: 88 msec QT Interval: 388 msec QTC Interval: 464 msec P-R-T [place]: 65 - 75 - 12 degrees Normal sinus rhythm ST abnormality, possible digitalis effect Abnormal ECG Electronically Signed By: Ryan Rowley [id number]
== END 2016-09-19 09:13 | disposition home or self-care (01) ==
LOC: SDS 05:42 → CCL 06:12 → SDS 09:13
PROVIDERS: ATTEND Student in an Organized Health Care Education/Training Program
DX: T82.590A Other mechanical complication of surgically created arteriovenous fistula, initial encounter (principal); Y84.1 Kidney dialysis as the cause of abnormal reaction of the patient, or of later complication, without mention of misadventure at the time of the procedure; Y92.89 Other specified places as the place of occurrence of the external cause; I12.0 Hypertensive chronic kidney disease with stage 5 chronic kidney disease or end stage renal disease; N18.6 End stage renal disease; I65.23 Occlusion and stenosis of bilateral carotid arteries; I25.10 Atherosclerotic heart disease of native coronary artery without angina pectoris; Z85.46 Personal history of malignant neoplasm of prostate
CPT/HCPCS: 36901; 71010; 80048; 82962; 85025; 85610; 85730; 93005; C1769; C1894; J1644; J2250; J3010

== ENCOUNTER 2016-11-22 17:06 | Inpatient (IN) | payer MEDICARE, OTHER ==
[~2016-11-22] VITALS: Ht 172.7 cm; Wt 48.6 kg
[~2016-11-22 17:06] MED LIST changes: -AMIO200T2 PO; -PRED5 PO; +PRED5TAB PO; -SIMV20TA PO
[2016-11-22] MEDS ORDERED: ONDANSETRON 4 MG INJ IV STA (17:38)
[2016-11-22] MEDS ORDERED: HYDROmorphONE 1 MG/ML SYG IV STA (17:38)
[2016-11-22 18:10] LABS: BASOPHILS % 0.2 % (0.0-2.0); EOSINOPHILS # 0.2 10^3/ul (0.0-0.5); EOSINOPHILS % 2.2 % (0.0-7.0); HEMATOCRIT 38.4 % (42.0-52.0); HEMOGLOBIN 11.8 g/dl (14.0-18.0); LYMPHOCYTES # 1.9 10^3/ul (0.8-2.9); LYMPHOCYTES % 22.6 % (15.0-51.0); MEAN CORPUSCULAR HEMOGLOBIN 26.4 pg (29.0-33.0); MEAN CORPUSCULAR HGB CONC 30.7 g/dl (32.0-37.0); MEAN CORPUSCULAR VOLUME 85.9 fl (82.0-101.0); MEAN PLATELET VOLUME 9.7 fl (7.4-10.4); MONOCYTE # 0.8 10^3/ul (0.3-0.9); NEUTROPHIL # 5.3 10^3/ul (1.6-7.5); NEUTROPHILS % 64.5 % (39.0-77.0); PLATELET COUNT 200 10^3/UL (140-415); RED BLOOD COUNT 4.47 10^6/ul (4.70-6.10); RED CELL DISTRIBUTION WIDTH 16.5 % (11.5-14.5); WHITE BLOOD COUNT 8.2 10^3/ul (4.8-10.8)
--- NOTE | 2016-11-22 18:22 | ERA ---
ER Documentation Chief Complaint Date/Time DATE: 11/22/16 TIME: 18:20 Chief Complaint abd pain, onset 1 day, recent hospitalization, no n/v HPI This is a 76-year-old male who is discharged from [facility] 3 days ago after a week stay there for pancreatitis. Patient states that 2 days ago he began having some left lower quadrant pain with 4-5 episodes of diarrhea each day and today the diarrhea became mixed with blood. Blood is bright red. He also is having fever of 100 202 to the. Denies any cough no dysuria no back pain no history of diverticulitis no colon cancer. The patient is a dialysis patient had dialysis on Monday ROS All systems reviewed and are negative except as per history of present illness. Medications Home Meds Reported Medications Levothyroxine Sodium* (Levothyroxine Sodium*) 50 Mcg Tablet, 50 MCG PO BEFORE BREAKFAST, #30 TAB 11/22/16 Calcium Carbonate/Vitamin D3 (Oysco 500+D Tablet) 1 Each Tablet, 1 EACH PO BID, TAB 06/29/16 Sevelamer Carbonate* (Renvela*) 800 Mg Tablet, 0.8 GM PO WITH MEALS, TAB 06/29/16 Nifedipine* (Nifedipine ER*) 60 Mg Tablet.sa, 60 MG PO BID, TAB.SA 06/29/16 Metoprolol Tartrate* (Lopressor*) 50 Mg Tab, 50 MG PO BID, #60 TAB 06/29/16 Prednisone* (Prednisone*) 5 Mg Tab, 5 MG PO BID, TAB 06/29/16 Abiraterone Acetate (ZYTIGA) 250 Mg Tablet, 1000 MG PO QAM, TAB 06/29/16 Multivit/Ca Carb/B Cmplx/Fa* (Darcy-Jean-Pierre*) 1 Tab Tab, 1 TAB PO DAILY, TAB 06/29/16 Temazepam* (Temazepam*) 30 Mg Capsule, 30 MG PO HS Y for INSOMNIA, CAP 06/29/16 Aspirin* (Aspirin* Chew) 81 Mg Tab.chew, 81 MG PO DAILY, TAB.CHEW 06/29/16 Allergies Allergies: Coded Allergies: No Known Allergy (Unverified , 11/22/16) PMhx/Soc History of Surgery: Yes (Appendectomy, Fistula) Anesthesia Reaction: No Hx Neurological Disorder: No Hx Respiratory Disorders: No Hx Cardiac Disorders: No Hx Psychiatric Problems: No Hx Miscellaneous Medical Probl: Yes (Prostate CA) Hx Alcohol Use: No Hx Substance Use: No Hx Tobacco Use: No Smoking Status: Never smoker FmHx Family History: No coronary disease Physical Exam Vitals Vital Signs Date Time Temp Pulse Resp B/P Pulse Ox O2 Delivery O2 Flow Rate FiO2 11/22/16 19:27 99.1 100 18 188/77 99 Room Air 2.0 Nasal Cannula 11/22/16 18:22 95 18 203/79 99 Nasal Cannula 2.0 11/22/16 17:51 99.1 11/22/16 17:09 100.7 102 18 172/85 97 Physical Exam Const: Well-developed, well-nourished Head: Atraumatic, normocephalic Eyes: Normal Conjunctiva, PERRLA, EOMI, normal sclera, no nystagmus ENT: Normal External Ears, Nose and Mouth, moist mucus membranes. Neck: Full range of motion. No meningismus, no lymphadenopathy. Resp: Clear to auscultation bilaterally, no wheezing, rhonchi, rales Cardio: Regular rate and rhythm, no murmurs, S1 S2 present Abd: Soft, moderate left lower quadrant tenderness, non distended. Normal bowel sounds, no guarding or rebound, no pulsitile abdominal masses or bruits Skin: No petechiae or rashes, no ecchymosis , no maculopapular rash Back: No midline or flank tenderness Ext: No cyanosis, or edema, FROM x 4, normal inspection, neurovascularly intact x 4 Neur: Awake and alert, STR 5/5 x 4, sensation intact x 4, no focal findings, cerebellum intact Psych: Normal Mood and Affect Result Diagram: 11/22/16 1800 11/22/16 1800 Results 24 hrs Laboratory Tests Test 11/22/16 18:00 White Blood Count 8.210^3/ul Red Blood Count 4.4710^6/ul Hemoglobin 11.8g/dl Hematocrit 38.4% Mean Corpuscular Volume 85.9fl Mean Corpuscular Hemoglobin 26.4pg Mean Corpuscular Hemoglobin Concent 30.7g/dl Red Cell Distribution Width 16.5% Platelet Count 95616^3/UL Mean Platelet Volume 9.7fl Neutrophils % 64.5% Lymphocytes % 22.6% Monocytes % 10.0% Eosinophils % 2.2% Basophils % 0.2% Nucleated Red Blood Cells % 0.0/100WBC Neutrophils # 5.310^3/ul Lymphocytes # 1.910^3/ul Monocytes # 0.810^3/ul Eosinophils # 0.210^3/ul Basophils # 0.010^3/ul Nucleated Red Blood Cells # 0.010^3/ul Prothrombin Time 15.0Sec Prothrombin Time Ratio 1.2 INR International Normalized Ratio 1.17 Activated Partial Thromboplast Time 45.8Sec Sodium Level 141mmol/L Potassium Level 2.8mmol/L Chloride Level 101mmol/L Carbon Dioxide Level 21mmol/L Anion Gap 22 Blood Urea Nitrogen 35mg/dl Creatinine 11.82mg/dl Glucose Level 132mg/dl Calcium Level 9.0mg/dl Total Bilirubin 0.0mg/dl Direct Bilirubin 0.00mg/dl Indirect Bilirubin 0.0mg/dl Aspartate Amino Transf (AST/SGOT) 20IU/L Alanine Aminotransferase (ALT/SGPT) 23IU/L Alkaline Phosphatase 42IU/L Total Protein 7.3g/dl Albumin 3.5g/dl Globulin 3.80g/dl Albumin/Globulin Ratio 0.92 Lipase 943U/L Current Medications Medications (Trade) Dose Ordered Sig/Garland Route PRN Reason Start Time Stop Time Status Last Admin Dose Admin Hydromorphone HCl (Dilaudid) 1 mg ONCE STAT IV 11/22/16 17:38 11/22/16 17:40 DC 11/22/16 17:52 Ondansetron HCl (Zofran Inj) 4 mg ONCE STAT IV 11/22/16 17:38 11/22/16 17:40 DC 11/22/16 17:52 IV Flush 10 ml 10 ml STK-MED ONCE .ROUTE 11/22/16 19:48 11/22/16 19:49 DC 11/22/16 20:03 Sodium Chloride (NS) 100 ml @ ud STK-MED ONCE .ROUTE 11/22/16 19:48 11/22/16 19:49 DC 11/22/16 20:03 Iodixanol (Visipaque Locm) 100 ml STK-MED ONCE .ROUTE 11/22/16 19:48 11/22/16 19:49 DC 11/22/16 20:03 Procedures/MDM PROCEDURE: CT of the abdomen and pelvis CLINICAL INDICATION: Left lower quadrant pain with GI bleeding TECHNIQUE: The study was performed utilizing a GE [employer] 64-slice multidetector CT scanner. Direct spiral axial sections were obtained through the abdomen and pelvis with intravenous contrast. After administration of 75 cc of Visipaque 320, postcontrast images were obtained. Coronal and sagittal reformatted images were performed. The CTDI vol is 7.34 mGy and the DLP is 384.04 mGy-cm. The images were reviewed on a PACS workstation. One or more of the following dose reduction techniques were used: Automated exposure control. Adjustment of the mA and/or kV according to patient size. Use of iterative reconstruction technique. COMPARISON: No prior studies are available for comparison. FINDINGS: CT abdomen: Moderate sized bilateral pleural effusions are seen with compressive atelectasis in the lung bases. The heart is borderline enlarged. No pericardial effusion is seen. The liver is normal in size and contour. Multiple scattered hepatic cysts are seen. Moderate intrahepatic and extrahepatic biliary dilatation is seen. The gallbladder is distended with gallbladder wall thickening. Pericholecystic edema is seen. Multiple cystic structures are seen in the pancreas. Pancreatic duct is dilated. The spleen and adrenal glands are unremarkable in appearance. The kidneys are normal in size and contour enhance normally. Innumerable bilateral renal cysts are seen some which are complicated. No evidence of hydronephrosis or nephrolithiasis is seen. The stomach is unremarkable. Extensive bowel wall thickening is seen from the cecum to the ascending colon with luminal narrowing. The rectosigmoid region are fluid-filled. Scattered colonic diverticula are also seen. The small bowel is unremarkable in course and caliber. No inflammatory changes in the periappendiceal region is seen. No enlarged lymph nodes or fluid collections are seen. Extensive vascular calcifications are seen. CT pelvis: No pelvic mass, adenopathy, or focal fluid collection is seen. There is a small amount of free fluid. The urinary bladder wall is thickened. A small cystic structure is seen projecting from the right posterior bladder wall measuring 8 mm in size and may represent a diverticula. Presacral edema is seen. The pelvic organs are unremarkable. No osseous lesions are seen. Degenerative spondylosis of the lumbar spine is seen. Sclerosis of the T12 vertebral body is seen. IMPRESSION: 1. Findings which may represent polycystic kidney disease as described above. 2. Findings consistent with colitis which may be infectious or inflammatory in nature. 3. Distended gallbladder with wall thickening and pericholecystic edema with moderate biliary dilatation. The possibility of a distal common bile duct stone cannot be excluded. Consider further evaluation with an MRCP as clinically warranted. 4. Moderate bilateral pleural effusions. 5. Small amount of free fluid in the pelvis and presacral edema. RPTAT: HPNM Physician Kurt Date Time Electronically viewed and signed by Eric Diaz Physician on 11/22/2016 20 :33 / CC: LILLY CADET DO Patient has evidence of colitis which can account for the bloody diarrhea. Will admit the patient to the hospital for IV antibiotic therapy gentle fluids and pain control No sign of perforation or need for surgical intervention at this time Departure Diagnosis: Primary Impression: Colitis Additional Impression: Lower GI bleed Condition: Stable LILLY CADET DO Nov 22, 2016 18:22
[2016-11-22 18:26] LABS: INR 1.17; PT RATIO 1.2
[2016-11-22 18:27] LABS: PARTIAL THROMBOPLASTIN TIME 45.8 Sec (25.0-35.0)
[2016-11-22 18:30] LABS: ALBUMIN 3.5 g/dl (3.3-4.9); ALBUMIN/GLOBULIN RATIO 0.92; CREATININE 11.82 mg/dl (0.61-1.24); TOTAL PROTEIN 7.3 g/dl (6.1-8.1)
[2016-11-22 18:37] LABS: POTASSIUM 2.8 mmol/L (3.5-5.1)
[2016-11-22] MEDS ORDERED: LEVO50TA74 PO (18:51)
[2016-11-22] MEDS ORDERED: SOD CHLORIDE 0.9% 100 ML ONE (19:48)
[2016-11-22] MEDS ORDERED: IODIXANOL LOCM 100 ML BTL ONE (19:48)
--- NOTE | 2016-11-22 20:34 | RADRPT ---
PROCEDURE: CT of the abdomen and pelvis CLINICAL INDICATION: Left lower quadrant pain with GI bleeding TECHNIQUE: The study was performed utilizing a GE [employer] 64-slice multidetector CT scanner. Dir ect spiral axial sections were obtained through the abdomen and pelvis with intravenous contrast. Af ter administration of 75 cc of Visipaque 320, postcontrast images were obtained. Coronal and sagitt al reformatted images were performed. The CTDI vol is 7.34 mGy and the DLP is 384.04 mGy-cm. The im ages were reviewed on a PACS workstation. One or more of the following dose reduction techniques were used: Automated exposure control. Adjustment of the mA and/or kV according to patient size. Use of iterative reconstruction technique. COMPARISON: No prior studies are available for comparison. FINDINGS: CT abdomen: Moderate sized bilateral pleural effusions are seen with compressive atelectasis in the lung bases. The heart is borderline enlarged. No pericardial effusion is seen. The liver is normal in size and contour. Multiple scattered hepatic cysts are seen. Moderate intrahe patic and extrahepatic biliary dilatation is seen. The gallbladder is distended with gallbladder wal l thickening. Pericholecystic edema is seen. Multiple cystic structures are seen in the pancreas. P ancreatic duct is dilated. The spleen and adrenal glands are unremarkable in appearance. The kidneys are normal in size and contour enhance normally. Innumerable bilateral renal cysts are seen some wh ich are complicated. No evidence of hydronephrosis or nephrolithiasis is seen. The stomach is unremarkable. Extensive bowel wall thickening is seen from the cecum to the ascendin g colon with luminal narrowing. The rectosigmoid region are fluid-filled. Scattered colonic divertic gurjit are also seen. The small bowel is unremarkable in course and caliber. No inflammatory changes i n the periappendiceal region is seen. No enlarged lymph nodes or fluid collections are seen. Extensi ve vascular calcifications are seen. CT pelvis: No pelvic mass, adenopathy, or focal fluid collection is seen. There is a small amount of free fluid. The urinary bladder wall is thickened. A small cystic structure is seen projecting f rom the right posterior bladder wall measuring 8 mm in size and may represent a diverticula. Presacr al edema is seen. The pelvic organs are unremarkable. No osseous lesions are seen. Degenerative spo ndylosis of the lumbar spine is seen. Sclerosis of the T12 vertebral body is seen. IMPRESSION: 1. Findings which may represent polycystic kidney disease as described above. 2. Findings consistent with colitis which may be infectious or inflammatory in nature. 3. Distended gallbladder with wall thickening and pericholecystic edema with moderate biliary dilat ation. The possibility of a distal common bile duct stone cannot be excluded. Consider further evalu ation with an MRCP as clinically warranted. 4. Moderate bilateral pleural effusions. 5. Small amount of free fluid in the pelvis and presacral edema. RPTAT: HPNM Physician Kurt Date Time Electronically viewed and signed by Physician Kurt on 11/22/2016 20:33 /
[2016-11-22] MEDS ORDERED: SOD CHLORIDE 0.9% 1,000 ML IV SCH (20:44)
[2016-11-22] MEDS ORDERED: ACETAMINOPHEN 325 MG TAB PO PRN (21:00)
[2016-11-22] MEDS ORDERED: ERTAPENEM SODIUM 1 GM in SOD CHLORIDE 0.9% 100 ML IVPB ONE (21:00)
[2016-11-22] MEDS ORDERED: ONDANSETRON 4 MG INJ IV PRN (21:00)
[2016-11-23] VITALS (23 sets, daily range): BP systolic 94–200; BP diastolic 51–90; PULSE 58–160; RESP 18–20; TEMP 99.1; Ht 172.7 cm; Wt 48.6 kg
[2016-11-23] MEDS: hydrALAzine 20 MG INJ IV PRN (01:49)
[2016-11-23] MEDS: SOD CHLORIDE 0.9% 1,000 ML IV SCH ×3 (01:56→21:38)
[2016-11-23] MEDS ORDERED: ONDANSETRON 4 MG INJ IV PRN (02:00)
[2016-11-23] MEDS ORDERED: morphine 2 MG INJ IV PRN (02:00)
[2016-11-23] MEDS ORDERED: NACL 0.9% 3 ML SYG IV SCH (02:00)
[2016-11-23] MEDS ORDERED: ACETAMINOPHEN 325 MG TAB PO PRN (02:00)
[2016-11-23] MEDS: PIPER-TAZO 2.25 GM (PMX) 50 ML IVPB SCH ×3 (02:07→20:26)
[2016-11-23] MEDS: POTASSIUM CHLORIDE 250 ML IVPB SCH ×2 (02:39→07:10)
[2016-11-23] MEDS ORDERED: DILTIAZEM 25 MG INJ ONE (03:28)
[2016-11-23] MEDS ORDERED: DILTIAZEM 25 MG INJ IV ONE ×2 (03:30→05:00)
[2016-11-23 04:15] LABS: BASOPHILS % 0.2 % (0.0-2.0); EOSINOPHILS # 0.1 10^3/ul (0.0-0.5); EOSINOPHILS % 1.2 % (0.0-7.0); HEMATOCRIT 37.6 % (42.0-52.0); HEMOGLOBIN 11.5 g/dl (14.0-18.0); LYMPHOCYTES # 1.8 10^3/ul (0.8-2.9); LYMPHOCYTES % 16.9 % (15.0-51.0); MEAN CORPUSCULAR HEMOGLOBIN 26.3 pg (29.0-33.0); MEAN CORPUSCULAR HGB CONC 30.6 g/dl (32.0-37.0); MEAN PLATELET VOLUME 10.1 fl (7.4-10.4); MONOCYTE # 0.8 10^3/ul (0.3-0.9); MONOCYTES % 7.6 % (0.0-11.0); NEUTROPHIL # 7.6 10^3/ul (1.6-7.5); NEUTROPHILS % 72.9 % (39.0-77.0); PLATELET COUNT 195 10^3/UL (140-415); POSITIVE DIFF @See below; RED BLOOD COUNT 4.37 10^6/ul (4.70-6.10); RED CELL DISTRIBUTION WIDTH 16.5 % (11.5-14.5); WHITE BLOOD COUNT 10.4 10^3/ul (4.8-10.8)
[2016-11-23 04:46] LABS: PHOSPHORUS 7.9 mg/dl (2.5-4.9)
[2016-11-23 04:47] LABS: ALBUMIN 3.1 g/dl (3.3-4.9); ALBUMIN/GLOBULIN RATIO 0.93; CALCIUM 8.6 mg/dl (8.4-10.2); CREATININE 12.11 mg/dl (0.61-1.24); TOTAL PROTEIN 6.4 g/dl (6.1-8.1)
[2016-11-23 04:48] LABS: CHOL/HDL RATIO 5.2 RATIO
--- NOTE | 2016-11-23 05:12 | HP ---
Date/Time of Note Date/Time of Note DATE: 11/23/16 TIME: 04:58 Assessment/Plan VTE Prophylaxis VTE Prophylaxis Intervention: SCD's Lines/Catheters IV [facility]from [facility]ine [facility] Urinary Cath still in place: No Assessment/Plan Chief Complaint/Hosp Course This is a 76-year-old male being admitted to the telemetry floor for: #1 Abdominal pain: Secondary likely to underlying colitis and pancreatitis and/ or possible gallstone pancreatitis versus cholecystitis. Currently patient's LFTs are within normal values. Lipase is elevated above 900. There is also signs of possible inflammatory versus infectious colitis and patient has signs of bloody stool. There is also pericholecystic edema as well as a distended gallbladder showing signs of possible cholecystitis. At the current time will monitor patient's hemoglobin every 6 hours. Will get a type and screen. Will start the patient on renally dosed Zosyn IV. Will also provide the patient IV fluid hydration even though the patient is a hemodialysis patient as he likely needs fluid resuscitation secondary to his underlying pancreatitis. Will keep the patient n.p.o. we will provide pain control with IV narcotics. Will also obtain an MRCP of the abdomen in the a.m. secondary to the abnormal findings on the CAT scan. We will also consult GI. #2 end-stage renal disease on hemodialysis: Patient was due for his dialysis today. At the current time will need to provide patient with IV fluid hydration secondary to patient's underlying medical conditions as mentioned in # 1. Will consult nephrology for dialysis in the a.m. provided the patient remains normotensive. #3 hypokalemia: Patient on admission had a potassium of 2.8. At the current time will provide repletion with 40 M EQ IV KCl 2 #4 hypertension: As needed hydralazine for blood pressure greater than 160 systolic. Will need to keep a close eye on this secondary to patient's underlying infection and concern for possibly going into full-blown sepsis. #5 coronary disease: We will continue patient's home medications, will hold aspirin at this time secondary to GI bleeding bleeding as well as any other anticoagulation. #6 diabetes mellitus: We will check a hemoglobin A1c, insulin sliding scale #7 DVT GI prolapses: SCDs, Protonix Further treatment strategy will be implemented as per the clinical course Problems: HPI/ROS Admit Date/Time Admit Date/Time Nov 22, 2016 at 20:45 Hx of Present Illness Chief complaint: Abdominal pain, blood in stool This is a 76-year-old male who is discharged from [facility] 3 days ago after a week stay there for pancreatitis. Patient states that 2 days ago he began having some left lower quadrant pain with 4-5 episodes of diarrhea each day and today the diarrhea became mixed with blood. Blood is bright red. He also is having fever of 102 Denies any cough no dysuria no back pain no history of diverticulitis, no colon cancer. He is unsure if he had any recent antibiotic use. The patient is a dialysis patient had dialysis on Monday. Allergies: NKDA Medications: See APR ROS Const: As per HPI Eyes : No pain discharge or redness or change in visual acuity ENT: No pain, sore throat, congestion, congestion, dysphagia or discharge Respiratory: No shortness of breath, cough, sputum, wheezing, or pleuritic pain Cardiovascular: No chest pain, palpitation, PND, or edema GI : As per HPI Genitourinary: As per HPI Musculoskeletal: No joint pain, back pain, neck pain, restricted range of motion in neck or joints Skin: No rash, bruising or hives Neuro: No headache, dizziness, syncope, seizure, focal weakness Endocrine: No polyuria, polydipsia, temperature intolerance Psych: No hallucination, depression, anxiety or suicidal ideation PMH/Family/Social Past Medical History hypertension, diabetes, coronary artery disease status post stent, AFib, and probable history of prostate cancer Past Surgical History Left AV fistula, appendectomy, cardiac stent placement Past Surgical Hx: other Family History Significant Family History: no pertinent family hx Social History Alcohol Use: none Smoking Status: Former smoker Drug Use: none Exam/Review of Systems Vital Signs Vitals Vital Signs Date Time Temp Pulse Resp B/P Pulse Ox O2 Delivery O2 Flow Rate FiO2 11/23/16 03:11 160 11/23/16 02:27 98.2 18 170/78 98 Nasal Cannula 2.0 Intake and Output 11/22/16 11/22/16 11/23/16 15:00 23:00 07:00 Intake Total 150 ml Balance 150 ml Exam Exam General: Patient is a pleasant male lying in bed in no acute distress HEENT: Atraumatic, normocephalic. The pupils are equal, round and reactive. Extraocular motor are intact Neck: Supple with full range of motion. No rigidity or meningismus Chest: Nontender Lungs: Mild crackles at the bases bilaterally Heart: Normal S1-S2, Regular rhythm and rate. Abdomen: Soft, tenderness to palpation of the epigastric area as well as left lower quadrant, normal bowel sounds Extremities: Normal to inspection, no edema no cyanosis Neurologic: Normal mental status, speech normal, cranial nerves II through XII are intact, motor and sensory are intact, patient uses a wheelchair gait was not assessed Additional Comments PROCEDURE: CT of the abdomen and pelvis CLINICAL INDICATION: Left lower quadrant pain with GI bleeding TECHNIQUE: The study was performed utilizing a [employer] 64-slice multidetector CT scanner. Direct spiral axial sections were obtained through the abdomen and pelvis with intravenous contrast. After administration of 75 cc of Visipaque 320, postcontrast images were obtained. Coronal and sagittal reformatted images were performed. The CTDI vol is 7.34 mGy and the DLP is 384.04 mGy-cm. The images were reviewed on a PACS workstation. One or more of the following dose reduction techniques were used: Automated exposure control. Adjustment of the mA and/or kV according to patient size. Use of iterative reconstruction technique. COMPARISON: No prior studies are available for comparison. FINDINGS: CT abdomen: Moderate sized bilateral pleural effusions are seen with compressive atelectasis in the lung bases. The heart is borderline enlarged. No pericardial effusion is seen. The liver is normal in size and contour. Multiple scattered hepatic cysts are seen. Moderate intrahepatic and extrahepatic biliary dilatation is seen. The gallbladder is distended with gallbladder wall thickening. Pericholecystic edema is seen. Multiple cystic structures are seen in the pancreas. Pancreatic duct is dilated. The spleen and adrenal glands are unremarkable in appearance. The kidneys are normal in size and contour enhance normally. Innumerable bilateral renal cysts are seen some which are complicated. No evidence of hydronephrosis or nephrolithiasis is seen. The stomach is unremarkable. Extensive bowel wall thickening is seen from the cecum to the ascending colon with luminal narrowing. The rectosigmoid region are fluid-filled. Scattered colonic diverticula are also seen. The small bowel is unremarkable in course and caliber. No inflammatory changes in the periappendiceal region is seen. No enlarged lymph nodes or fluid collections are seen. Extensive vascular calcifications are seen. CT pelvis: No pelvic mass, adenopathy, or focal fluid collection is seen. There is a small amount of free fluid. The urinary bladder wall is thickened. A small cystic structure is seen projecting from the right posterior bladder wall measuring 8 mm in size and may represent a diverticula. Presacral edema is seen. The pelvic organs are unremarkable. No osseous lesions are seen. Degenerative spondylosis of the lumbar spine is seen. Sclerosis of the T12 vertebral body is seen. IMPRESSION: 1. Findings which may represent polycystic kidney disease as described above. 2. Findings consistent with colitis which may be infectious or inflammatory in nature. 3. Distended gallbladder with wall thickening and pericholecystic edema with moderate biliary dilatation. The possibility of a distal common bile duct stone cannot be excluded. Consider further evaluation with an MRCP as clinically warranted. 4. Moderate bilateral pleural effusions. 5. Small amount of free fluid in the pelvis and presacral edema. RPTAT: HPNM Physician Kurt Date Time Electronically viewed and signed by Eric Diaz Physician on 11/22/2016 20 :33 / CC: LILLY CADET DO Labs Result Diagram: 11/23/16 0358 11/22/16 1800 Medications Medications Current Medications Sodium Chloride (NS) 1,000 ml @ 100 mls/hr Q10H IV Last administered on t 01:56; Admin Dose 100 MLS/HR; Start 11/23/16 at 01:38 Ondansetron HCl (Zofran Inj) 4 mg Q6H PRN IV NAUSEA AND/OR VOMITING; Start at 02:00 Acetaminophen (Tylenol Tab) 650 mg Q6H PRN PO PAIN LEVEL 1-3 OR FEVER; Start 11/23/16 at 02:00 Morphine Sulfate (morphine) 2 mg Q4H PRN IV PAIN LEVEL 7-10; Start 11/23/16 at 02:00 Pantoprazole (Protonix Iv) 40 mg DAILY@06 IV ; Start 11/23/16 at 06:00 Hydralazine HCl (Apresoline) 10 mg Q4H PRN IV ELEVATED SYSTOLIC BP Last administered on 11/23/16 01:49; Admin Dose 10 MG; Start 11/23/16 at 02:00 Hydralazine HCl 20 mg 20 mg Q6H PRN IV ELEVATED SYSTOLIC BP; Start 11/23/16 at 02:00 Piperacillin Sod/ Tazobactam Sod 50 ml @ 100 mls/hr Q12 IVPB Last administered on 11/23/16 02:07; Admin Dose 100 MLS/HR; Start 11/23/16 at 02: 00 Potassium Chloride (KCl 40 MEQ/250 ML NS) 250 ml @ 62.5 mls/hr Q4H IVPB Last administered on 11/23/16 02:39; Admin Dose 62.5 MLS/HR; Start 11/23/16 at 02: 00; Stop 11/23/16 at 09:59 Aspirin (Aspirin) 81 mg DAILY PO ; Start 11/23/16 at 09:00 Metoprolol Tartrate (Lopressor) 50 mg BID PO ; Start 11/23/16 at 09:00 Multivit/Ca Carb/ B Cmplx/FA/Prenat (Darcy-Jean-Pierre) 1 tab DAILY PO ; Start at 09:00 Nifedipine (Procardia Xl) 60 mg BID PO ; Start 11/23/16 at 09:00 Prednisone (Prednisone) 5 mg BID PO ; Start 11/23/16 at 09:00 Diltiazem HCl (Cardizem Iv) 15 mg ONCE ONCE IV ; Start 11/23/16 at 05:00; Stop 11/23/16 at 05:01 LUNA CURRY Nov 23, 2016 05:08
[2016-11-23 05:21] LABS: POTASSIUM 2.8 mmol/L (3.5-5.1)
[2016-11-23] MEDS: PANTOPRAZOLE 40 MG INJ IV SCH (06:34)
[2016-11-23 07:28] LABS: HEMATOCRIT 34.3 % (42.0-52.0); HEMOGLOBIN 10.6 g/dl (14.0-18.0)
[2016-11-23] MEDS: SEVELAMER CARBONATE 0.8 GM PKT PO SCH ×3 (07:55→17:54)
[2016-11-23] MEDS: LEVOTHYROXINE 50 MCG TAB PO SCH (07:59)
[2016-11-23 08:00] LABS: CALCIUM 8.4 mg/dl (8.4-10.2); CREATININE 11.93 mg/dl (0.61-1.24); POTASSIUM 3.5 mmol/L (3.5-5.1)
[2016-11-23] MEDS: NIFEdipine (XL) 60 MG TAB PO SCH ×3 (08:38→22:31)
[2016-11-23] MEDS: METOPROLOL 50 MG TAB PO SCH ×3 (08:38→22:33)
[2016-11-23] MEDS: MULTIVIT/CA CARB/B CMPLX/FA TAB PO SCH (08:39)
[2016-11-23] MEDS: predniSONE 5 MG TAB PO SCH ×3 (08:39→22:34)
[2016-11-23] MEDS: ASPIRIN 81 MG TAB PO SCH (08:39)
--- NOTE | 2016-11-23 09:25 | CONS ---
DATE OF ADMISSION: 11/22/2016 DATE OF CONSULTATION: 11/23/2016 TYPE OF CONSULTATION: Nephrology. REASON FOR CONSULTATION: End-stage renal disease. HISTORY OF PRESENT ILLNESS: This is a 75-year-old male with a past medical history of prostate canc er on hormonal replacement therapy, history of end-stage renal disease on dialysis Monday, , Monday, last hemodialysis was Monday with access of left AV fistula, history of diabetes, hype rtension who presents to [facility] with left lower quadrant pain. The patient wa s recently at [facility] 3 days ago for acute pancreatitis. He was discharged. The vj ent now is also complaining of diarrhea mixed with blood. On admission in the emergency room, the p atient was placed on IV antibiotics and a CT scan of the abdomen and pelvis which showed findings co nsistent with colitis. He was subsequently treated and admitted to telemetry. There have been no r eports of hemoptysis, hematemesis or hematochezia. PAST MEDICAL HISTORY: History of pancreatic CA, history of hypertension, history of end-stage renal disease, history of coronary artery disease, diabetes. PAST SURGICAL HISTORY: Status post left AV fistula, history of appendectomy. FAMILY HISTORY: Noncontributory. SOCIAL HISTORY: Does not drink, smoke or do drugs. MEDICATIONS: The patient's medications have been reviewed. REVIEW OF SYSTEMS: A 14-point review of systems was conducted. Pertinent positives stated in HPI, otherwise negative. PHYSICAL EXAMINATION: VITAL SIGNS: Blood pressure is /85, respiration 18, pulse 91, temperature 100.1. HEENT: Head is normocephalic. NECK: Supple. HEART: Regular rate. LUNGS: Show diminished breath sounds at the base. ABDOMEN: Soft. Patient does have tenderness to palpation. No rebound or guarding. EXTREMITIES: Negative for clubbing, cyanosis, edema. DERMATOLOGIC: No rashes. MUSCULOSKELETAL: No joint effusions. NEUROLOGIC: No change in exam. LABORATORY DATA: Shows a white count 10.6, hemoglobin 34.3, platelet count 194. Sodium 141, potass ium 3.5, BUN 38, creatinine 11.93. ASSESSMENT AND PLAN: This is a 76-year-old male who presents with: 1. End-stage renal disease. The patient is on dialysis Monday, , Monday, last hemodialy sis was Monday. Plan for dialysis today. Will dialyze for 3 hours, 4K bath, calcium 2.5. The gordon granados has access of left AV fistula. 2. Hypokalemia, improved. Continue dialysis on a high potassium bath. 3. Mineral bone disorder. Monitor calcium and phosphorus levels. 4. Hypertension. Continue current blood pressure regimen. Continue ultrafiltration dialysis. 5. Abdominal pain with underlying colitis, possible pancreatitis. Continue current medical managem ent. Follow up with primary team. The patient is pending possible MRI. 6. Hypertension. Continue current blood pressure regimen. 7. Coronary artery disease. Continue medical management. 8. Diabetes. Continue Accu-Cheks, insulin sliding scale. Thank you, Dr. Xiao, for this interesting consultation. It will be a pleasure to follow patient with you throughout the hospital course. Dictated By: ASIM GARCIA/GOPAL Conf#: [id number] DID#: [id number]
--- NOTE | 2016-11-23 09:35 | RADRPT ---
PROCEDURE: XR Chest 1 View. CLINICAL INDICATION: Shortness of breath. Pleural effusions. TECHNIQUE: AP view of the chest was obtained. COMPARISON: September 19, 2016 FINDINGS: The heart size is within normal limits. Calcified atherosclerosis is noted in the aorta. Bilateral mid and lower lung infiltrates, combined small to moderate pleural effusions are identified. Central pulmonary vascular congestion and interstitial prominence is seen in both lungs. Osseous structures are intact. IMPRESSION: Calcified atherosclerosis in the aorta. Central pulmonary vascular congestion and interstitial prominence in both lungs. Bilateral mid and lower lung infiltrates, combined with small to moderate pleural effusions. RPTAT: AA .David Arana MD, MD Date Time Electronically viewed and signed by .David Arana MD, on 11/23/2016 09:35 .P/
--- NOTE | 2016-11-23 12:47 | CONS ---
Date/Time of Note Date/Time of Note DATE: 11/23/16 TIME: 12:14 Assessment/Plan Assessment/Plan Chief Complaint/Hosp Course Summary Assessment and Plan: Assessment: Pancreatitis CBD obstruction? Cholecystitis? Colitis- infectious versus inflammatory Plan: Continue to monitor hemoglobin Continue antibiotics Await results of stool workup MRCP Keep Npo Based on results of MRCP will advise further workup Chief Complaint/Reason for Visit: Abdominal pain Pancreatitis Colitis History of Present Illness: The pleasant 76-year-old male admitted to the hospital with abdominal pain and bloody diarrhea. He was recently discharged from [facility] for pancreatitis. He began to complain of bloody diarrhea 2 days ago, having dark watery diarrhea 4-5 times a day. He denies recent antibiotic use. Stool workup has been ordered and currently pending. CAT scan of abdomen pelvis reveals polycystic kidney disease, findings consistent with colitis, distended gallbladder with wall thickening moderate biliary dilation, moderate bilateral pleural effusion, small amount of free fluid in the pelvis presacral edema. Currently LFTs are normal, lipase is trending down 620s, Bilirubin normal. Mild anemia- stable. Pt was febrile on admission with a-fib however now has converted to sinus rhythm and is now afebrile. Past Medical History: End-stage renal disease- on HD Prostate cancer High blood pressure Diabetes CAD Allergies: No known allergies Family History: No pertinent history Social History: Denies ETOH Former smoker Denies drug use Problems: Consultation Date/Type/Reason Admit Date/Time Nov 22, 2016 at 20:45 Constitutional: improved Eyes: no complaints ENT: no complaints Respiratory: shortness of breath Cardiovascular: no complaints Gastrointestinal: blood, decreased appetite, diarrhea, flatus, pain, No constipation, No nausea, No vomiting Genitourinary: no complaints, other (ESRD) Musculoskeletal: no complaints Skin: no complaints Endocrine: dry skin Psychological: no complaints Past Medical History Medical History: cancer (prostate), coronary artery disease, diabetes, hypertension Past Surgical History Past Surgical Hx: other Family History Significant Family History: no pertinent family hx Social History Alcohol Use: none Smoking Status: Former smoker Drug Use: none Exam/Review of Systems Vital Signs Vitals Vital Signs Date Time Temp Pulse Resp B/P Pulse Ox O2 Delivery O2 Flow Rate FiO2 11/23/16 12:00 72 11/23/16 11:48 98.7 18 131/68 96 11/23/16 04:00 Nasal Cannula 2.0 Intake and Output 11/22/16 11/22/16 11/23/16 15:00 23:00 07:00 Intake Total 150 ml Balance 150 ml Exam Constitutional: alert, oriented Psych: no complaints Head: atraumatic, normocephalic Eyes: PERRL ENMT: nl external ears & nose Neck: supple Respiratory: crackles/rales Cardiovascular: regular rate and rhythm Gastrointestinal: bowel sounds, firm, tender, No mass, No splenomegaly, No surgical scars Genitourinary - Male: nl penis Skin: nl turgor Results Result Diagram: 11/23/16 0707 11/23/16 0707 Results 24 hrs Laboratory Tests Test 11/22/16 18:00 11/22/16 21:13 11/22/16 23:40 11/23/16 03:54 White Blood Count 8.2 # Red Blood Count 4.47 #L Hemoglobin 11.8 #L Hematocrit 38.4 L Mean Corpuscular Volume 85.9 Mean Corpuscular Hemoglobin 26.4 L Mean Corpuscular Hemoglobin Concent 30.7 L Red Cell Distribution Width 16.5 #H Platelet Count 200 Mean Platelet Volume 9.7 Neutrophils % 64.5 Lymphocytes % 22.6 Monocytes % 10.0 Eosinophils % 2.2 Basophils % 0.2 Nucleated Red Blood Cells % 0.0 Neutrophils # 5.3 Lymphocytes # 1.9 Monocytes # 0.8 Eosinophils # 0.2 Basophils # 0.0 Nucleated Red Blood Cells # 0.0 Prothrombin Time 15.0 #H Prothrombin Time Ratio 1.2 INR International Normalized Ratio 1.17 Activated Partial Thromboplast Time 45.8 H Sodium Level 141 Potassium Level 2.8 *L Chloride Level 101 Carbon Dioxide Level 21 Anion Gap 22 H Blood Urea Nitrogen 35 H Creatinine 11.82 H Glucose Level 132 Calcium Level 9.0 Total Bilirubin 0.0 L Direct Bilirubin 0.00 Indirect Bilirubin 0.0 Aspartate Amino Transf (AST/SGOT) 20 Alanine Aminotransferase (ALT/SGPT) 23 Alkaline Phosphatase 42 Total Protein 7.3 Albumin 3.5 Globulin 3.80 H Albumin/Globulin Ratio 0.92 Lipase 943 H Lactic Acid Level 0.9 0.7 Free Thyroxine 2.17 Test 11/23/16 03:58 11/23/16 07:07 White Blood Count 10.4 # Red Blood Count 4.37 L Hemoglobin 11.5 L 10.6 L Hematocrit 37.6 L 34.3 L Mean Corpuscular Volume 86.0 Mean Corpuscular Hemoglobin 26.3 L Mean Corpuscular Hemoglobin Concent 30.6 L Red Cell Distribution Width 16.5 H Platelet Count 195 Mean Platelet Volume 10.1 Neutrophils % 72.9 Lymphocytes % 16.9 Monocytes % 7.6 Eosinophils % 1.2 Basophils % 0.2 Nucleated Red Blood Cells % 0.0 Neutrophils # 7.6 H Lymphocytes # 1.8 Monocytes # 0.8 Eosinophils # 0.1 Basophils # 0.0 Nucleated Red Blood Cells # 0.0 Sodium Level 141 141 Potassium Level 2.8 *L 3.5 Chloride Level 104 106 Carbon Dioxide Level 18 L 17 L Anion Gap 22 H 22 H Blood Urea Nitrogen 38 H 38 H Creatinine 12.11 H 11.93 H Glucose Level 73 # 65 L Hemoglobin A1c 5.8 Calcium Level 8.6 8.4 Phosphorus Level 7.9 H Magnesium Level 1.8 Total Bilirubin 0.0 L Direct Bilirubin 0.00 Indirect Bilirubin 0.0 Aspartate Amino Transf (AST/SGOT) 14 L Alanine Aminotransferase (ALT/SGPT) 24 Alkaline Phosphatase 35 L Total Protein 6.4 Albumin 3.1 L Globulin 3.30 H Albumin/Globulin Ratio 0.93 Triglycerides Level 217 H Cholesterol Level 142 LDL Cholesterol, Calculated 72 HDL Cholesterol 27 L Cholesterol/HDL Ratio 5.2 Lipase 627 H Thyroid Stimulating Hormone (TSH) 14.200 H B-Type Natriuretic Peptide 79637 H Imaging Free Text/Dictation CAT scan of the abdomen and pelvis Consistent with colitis infectious versus inflammatory distended gallbladder with wall thickening and jessee-cholecystic edema with moderate biliary dilation cannot rule out stone Moderate bilateral pleural effusion Small amount of free fluid in the pelvis presacral edema Polycystic kidney disease Medications Medications Current Medications Sodium Chloride (NS) 1,000 ml @ 100 mls/hr Q10H IV Last administered on t 11:11; Admin Dose 100 MLS/HR; Start 11/23/16 at 01:38 Ondansetron HCl (Zofran Inj) 4 mg Q6H PRN IV NAUSEA AND/OR VOMITING; Start at 02:00 Acetaminophen (Tylenol Tab) 650 mg Q6H PRN PO PAIN LEVEL 1-3 OR FEVER; Start 11/23/16 at 02:00 Morphine Sulfate (morphine) 2 mg Q4H PRN IV PAIN LEVEL 7-10; Start 11/23/16 at 02:00 Pantoprazole (Protonix Iv) 40 mg DAILY@06 IV Last administered on 11/23/16 06 :34; Admin Dose 40 MG; Start 11/23/16 at 06:00 Hydralazine HCl (Apresoline) 10 mg Q4H PRN IV ELEVATED SYSTOLIC BP Last administered on 11/23/16 01:49; Admin Dose 10 MG; Start 11/23/16 at 02:00 Hydralazine HCl 20 mg 20 mg Q6H PRN IV ELEVATED SYSTOLIC BP; Start 11/23/16 at 02:00 Piperacillin Sod/ Tazobactam Sod (Zosyn 2.25gm/ 50ml (Pmx)) 50 ml @ 100 mls/hr Q12 IVPB Last administered on 11/23/16 11:10; Admin Dose 100 MLS/HR; Start 11/23/16 at 02:00 Aspirin (Aspirin) 81 mg DAILY PO Last administered on 11/23/16 08:39; Admin Dose 81 MG; Start 11/23/16 at 09:00 Metoprolol Tartrate (Lopressor) 50 mg BID PO ; Start 11/23/16 at 09:00 Multivit/Ca Carb/ B Cmplx/FA/Prenat (Darcy-Jean-Pierre) 1 tab DAILY PO Last administered on 11/23/16 08:39; Admin Dose 1 TAB; Start 11/23/16 at 09:00 Nifedipine (Procardia Xl) 60 mg BID PO ; Start 11/23/16 at 09:00 Prednisone (Prednisone) 5 mg BID PO Last administered on 11/23/16 08:39; Admin Dose 5 MG; Start 11/23/16 at 09:00 Copies To: CC: VERNON LEONARD MD, VICTORIA Nov 23, 2016 12:25
[2016-11-23 12:57] LABS: HEMATOCRIT 35.5 % (42.0-52.0); HEMOGLOBIN 11.2 g/dl (14.0-18.0)
--- NOTE | 2016-11-23 14:28 | CONS ---
Date/Time of Note Date/Time of Note DATE: 11/23/16 TIME: 14:02 Assessment/Plan Assessment/Plan Additional Assessment/Plan Paroxysmal atrial fibrillation, currently sinus rhythm End-stage renal disease on hemodialysis Hypertension Colitis SIRS -Patient with atrial fibrillation last night and appears converted to sinus rhythm with IV Cardizem. He is currently undergoing hemodialysis. In discussion with the patient, he thinks he had a history of atrial fibrillation in the past as well was on anticoagulation but this was stopped. He is currently in sinus rhythm. I will continue beta-hector, if recurrence, would consider amiodarone. Would hold off on initiation of anticoagulation the current time given patient with black stools and as per the patient, anticoagulation was stopped in the past. Check echocardiogram, ECG, continue telemetry monitoring. Consultation Date/Type/Reason Admit Date/Time Nov 22, 2016 at 20:45 Type of Consultation: cv Reason for Consultation Atrial fibrillation Hx of Present Illness This is a 76-year-old male with past medical history of end-stage renal disease on hemodialysis, hypertension presented with symptoms of abdominal pain and being worked up for colitis and possible pancreatitis. Overnight, patient with new onset atrial fibrillation. On review of records, patient was given IV Cardizem and appears he converted back to sinus rhythm afterwards. In discussion with patient, he does think he had a history of atrial fibrillation number of years ago. He also does think he was on anticoagulation as well but that was stopped for unknown reason. He denies any palpitations at the current time, chest pain or dizziness. He does get intermittent shortness of breath. He does complain of abdominal discomfort which has been intermittent and black stools. Constitutional: improved Eyes: no complaints ENT: no complaints Respiratory: shortness of breath Cardiovascular: no complaints Gastrointestinal: blood, decreased appetite, diarrhea, flatus, pain, No constipation, No nausea, No vomiting Genitourinary: no complaints, other (ESRD) Musculoskeletal: no complaints Skin: no complaints Endocrine: dry skin Psychological: no complaints Past Medical History End-stage renal disease on hemodialysis Medical History: cancer (prostate), diabetes, hypertension Past Surgical History Past Surgical Hx: other (Dialysis fistula) Family History Significant Family History: no pertinent family hx Social History Alcohol Use: none Smoking Status: Former smoker Drug Use: none Exam/Review of Systems Vital Signs Vitals Vital Signs Date Time Temp Pulse Resp B/P Pulse Ox O2 Delivery O2 Flow Rate FiO2 11/23/16 13:55 100 11/23/16 12:00 Nasal Cannula 2.0 11/23/16 11:48 98.7 18 131/68 96 Intake and Output 11/22/16 11/22/16 11/23/16 15:00 23:00 07:00 Intake Total 150 ml Balance 150 ml Exam Sleeping but arousable, follows commands, no apparent distress, undergoing hemodialysis Constitutional: frail Head: normocephalic Respiratory: other (Coarse breath sounds bilaterally, no wheezing) Cardiovascular: other (S1-S2 heard), regular rate and rhythm Gastrointestinal: bowel sounds, non-tender, soft Extremities: other (No significant edema) Results Result Diagram: 11/23/16 1246 11/23/16 0707 Results 24 hrs Laboratory Tests Test 11/22/16 18:00 11/22/16 21:13 11/22/16 23:40 11/23/16 03:54 White Blood Count 8.2 # Red Blood Count 4.47 #L Hemoglobin 11.8 #L Hematocrit 38.4 L Mean Corpuscular Volume 85.9 Mean Corpuscular Hemoglobin 26.4 L Mean Corpuscular Hemoglobin Concent 30.7 L Red Cell Distribution Width 16.5 #H Platelet Count 200 Mean Platelet Volume 9.7 Neutrophils % 64.5 Lymphocytes % 22.6 Monocytes % 10.0 Eosinophils % 2.2 Basophils % 0.2 Nucleated Red Blood Cells % 0.0 Neutrophils # 5.3 Lymphocytes # 1.9 Monocytes # 0.8 Eosinophils # 0.2 Basophils # 0.0 Nucleated Red Blood Cells # 0.0 Prothrombin Time 15.0 #H Prothrombin Time Ratio 1.2 INR International Normalized Ratio 1.17 Activated Partial Thromboplast Time 45.8 H Sodium Level 141 Potassium Level 2.8 *L Chloride Level 101 Carbon Dioxide Level 21 Anion Gap 22 H Blood Urea Nitrogen 35 H Creatinine 11.82 H Glucose Level 132 Calcium Level 9.0 Total Bilirubin 0.0 L Direct Bilirubin 0.00 Indirect Bilirubin 0.0 Aspartate Amino Transf (AST/SGOT) 20 Alanine Aminotransferase (ALT/SGPT) 23 Alkaline Phosphatase 42 Total Protein 7.3 Albumin 3.5 Globulin 3.80 H Albumin/Globulin Ratio 0.92 Lipase 943 H Lactic Acid Level 0.9 0.7 Free Thyroxine 2.17 Test 11/23/16 03:58 11/23/16 07:07 10/18/17 12:46 White Blood Count 10.4 # Red Blood Count 4.37 L Hemoglobin 11.5 L 10.6 L 11.2 L Hematocrit 37.6 L 34.3 L 35.5 L Mean Corpuscular Volume 86.0 Mean Corpuscular Hemoglobin 26.3 L Mean Corpuscular Hemoglobin Concent 30.6 L Red Cell Distribution Width 16.5 H Platelet Count 195 Mean Platelet Volume 10.1 Neutrophils % 72.9 Lymphocytes % 16.9 Monocytes % 7.6 Eosinophils % 1.2 Basophils % 0.2 Nucleated Red Blood Cells % 0.0 Neutrophils # 7.6 H Lymphocytes # 1.8 Monocytes # 0.8 Eosinophils # 0.1 Basophils # 0.0 Nucleated Red Blood Cells # 0.0 Sodium Level 141 141 Potassium Level 2.8 *L 3.5 Chloride Level 104 106 Carbon Dioxide Level 18 L 17 L Anion Gap 22 H 22 H Blood Urea Nitrogen 38 H 38 H Creatinine 12.11 H 11.93 H Glucose Level 73 # 65 L Hemoglobin A1c 5.8 Calcium Level 8.6 8.4 Phosphorus Level 7.9 H Magnesium Level 1.8 Total Bilirubin 0.0 L Direct Bilirubin 0.00 Indirect Bilirubin 0.0 Aspartate Amino Transf (AST/SGOT) 14 L Alanine Aminotransferase (ALT/SGPT) 24 Alkaline Phosphatase 35 L Total Protein 6.4 Albumin 3.1 L Globulin 3.30 H Albumin/Globulin Ratio 0.93 Triglycerides Level 217 H Cholesterol Level 142 LDL Cholesterol, Calculated 72 HDL Cholesterol 27 L Cholesterol/HDL Ratio 5.2 Lipase 627 H Thyroid Stimulating Hormone (TSH) 14.200 H B-Type Natriuretic Peptide 89834 H Medications Medications Current Medications Sodium Chloride (NS) 1,000 ml @ 100 mls/hr Q10H IV Last administered on t 11:11; Admin Dose 100 MLS/HR; Start 11/23/16 at 01:38 Ondansetron HCl (Zofran Inj) 4 mg Q6H PRN IV NAUSEA AND/OR VOMITING; Start at 02:00 Acetaminophen (Tylenol Tab) 650 mg Q6H PRN PO PAIN LEVEL 1-3 OR FEVER; Start 11/23/16 at 02:00 Morphine Sulfate (morphine) 2 mg Q4H PRN IV PAIN LEVEL 7-10; Start 11/23/16 at 02:00 Pantoprazole (Protonix Iv) 40 mg DAILY@06 IV Last administered on 11/23/16 06 :34; Admin Dose 40 MG; Start 11/23/16 at 06:00 Hydralazine HCl (Apresoline) 10 mg Q4H PRN IV ELEVATED SYSTOLIC BP Last administered on 11/23/16 01:49; Admin Dose 10 MG; Start 11/23/16 at 02:00 Hydralazine HCl 20 mg 20 mg Q6H PRN IV ELEVATED SYSTOLIC BP; Start 11/23/16 at 02:00 Piperacillin Sod/ Tazobactam Sod (Zosyn 2.25gm/ 50ml (Pmx)) 50 ml @ 100 mls/hr Q12 IVPB Last administered on 11/23/16 11:10; Admin Dose 100 MLS/HR; Start 11/23/16 at 02:00 Aspirin (Aspirin) 81 mg DAILY PO Last administered on 11/23/16 08:39; Admin Dose 81 MG; Start 11/23/16 at 09:00 Metoprolol Tartrate (Lopressor) 50 mg BID PO ; Start 11/23/16 at 09:00 Multivit/Ca Carb/ B Cmplx/FA/Prenat (Darcy-Jean-Pierre) 1 tab DAILY PO Last administered on 11/23/16 08:39; Admin Dose 1 TAB; Start 11/23/16 at 09:00 Nifedipine (Procardia Xl) 60 mg BID PO ; Start 11/23/16 at 09:00 Prednisone (Prednisone) 5 mg BID PO Last administered on 11/23/16 08:39; Admin Dose 5 MG; Start 11/23/16 at 09:00 Skyler Isaac DO Nov 23, 2016 14:06
[2016-11-23 14:43] LABS: HEMATOCRIT 33.6 % (42.0-52.0); HEMOGLOBIN 10.6 g/dl (14.0-18.0)
[2016-11-23] MEDS: ZOLPIDEM 5 MG TAB PO PRN (22:32)
[2016-11-24] VITALS (18 sets, daily range): BP systolic 97–158; BP diastolic 40–66; PULSE 61–68; RESP 17–20
[2016-11-24] MEDS: SOD CHLORIDE 0.9% 1,000 ML IV SCH (03:19)
[2016-11-24] MEDS: PANTOPRAZOLE 40 MG INJ IV SCH (05:28)
[2016-11-24] MEDS: LEVOTHYROXINE 50 MCG TAB PO SCH (06:03)
[2016-11-24 07:43] LABS: BASOPHILS % 0.3 % (0.0-2.0); EOSINOPHILS # 0.1 10^3/ul (0.0-0.5); EOSINOPHILS % 0.8 % (0.0-7.0); HEMATOCRIT 35.4 % (42.0-52.0); HEMOGLOBIN 10.5 g/dl (14.0-18.0); LYMPHOCYTES # 1.1 10^3/ul (0.8-2.9); MEAN CORPUSCULAR HEMOGLOBIN 26.1 pg (29.0-33.0); MEAN CORPUSCULAR HGB CONC 29.7 g/dl (32.0-37.0); MEAN CORPUSCULAR VOLUME 88.1 fl (82.0-101.0); MEAN PLATELET VOLUME 10.4 fl (7.4-10.4); MONOCYTE # 0.4 10^3/ul (0.3-0.9); MONOCYTES % 3.1 % (0.0-11.0); NEUTROPHIL # 10.3 10^3/ul (1.6-7.5); NEUTROPHILS % 86.1 % (39.0-77.0); PLATELET COUNT 179 10^3/UL (140-415); POSITIVE DIFF @See below; RED BLOOD COUNT 4.02 10^6/ul (4.70-6.10); RED CELL DISTRIBUTION WIDTH 16.7 % (11.5-14.5)
[2016-11-24] MEDS: SEVELAMER CARBONATE 0.8 GM PKT PO SCH ×3 (08:08→17:31)
[2016-11-24] MEDS: PIPER-TAZO 2.25 GM (PMX) 50 ML IVPB SCH ×2 (08:08→21:44)
[2016-11-24] MEDS: MULTIVIT/CA CARB/B CMPLX/FA TAB PO SCH (08:08)
[2016-11-24] MEDS: NIFEdipine (XL) 60 MG TAB PO SCH (08:09)
[2016-11-24] MEDS: ASPIRIN 81 MG TAB PO SCH (08:09)
[2016-11-24] MEDS: predniSONE 5 MG TAB PO SCH ×2 (08:09→21:47)
[2016-11-24] MEDS: METOPROLOL 50 MG TAB PO SCH ×2 (08:10→21:00)
[2016-11-24 08:16] LABS: CALCIUM 9.1 mg/dl (8.4-10.2); CREATININE 9.28 mg/dl (0.61-1.24); POTASSIUM 4.2 mmol/L (3.5-5.1)
--- NOTE | 2016-11-24 10:55 | PN ---
DATE: 11/24/2016 SUBJECTIVE: The patient had hemodialysis yesterday, tolerated well. Patient continues to have abdo arabella pain. No other events noted. OBJECTIVE: VITAL SIGNS: Blood pressure is 115/56, temperature 97.6, pulse 67, respirations 18. HEENT: Head is normocephalic. NECK: Supple. HEART: Regular rate. LUNGS: Show diminished breath sounds at base. ABDOMEN: Soft. The patient does have some tenderness to palpation without rebound or guarding. EXTREMITIES: Negative for clubbing, cyanosis, no edema. DERMATOLOGIC: No rashes. MUSCULOSKELETAL: No joint effusions. NEUROLOGIC: No change in exam. LABORATORY DATA: Shows a sodium 145, BUN 31, creatinine 9.28, potassium 4.2, phosphorus 8.2. White count 12.0, hemoglobin 10.5, hematocrit 35.4, platelet count 179. ASSESSMENT AND PLAN: 1. End-stage renal disease. The patient had dialysis Monday, , Monday. The patient had hemodialysis yesterday, anticipate dialysis again today to maintain schedule. 2. Hypokalemia, resolved. 3. Mineral bone disorder, monitor calcium and phosphorus levels. Will start the patient on phospha te binders. 4. Anemia. Monitor hemoglobin and hematocrit levels. Continue Epogen. 5. Hypertension. Continue current blood pressure regimen. Continue ultrafiltration with dialysis. 6. Coronary artery disease. Continue medical management. 7. Diabetes. Continue current insulin regimen. 8. Abdominal pain with underlying colitis, possible pancreatitis. Continue current medical managem ent. Follow up with primary team. Possible MRI is pending. 9. Paroxysmal atrial fibrillation. The patient is currently in sinus rhythm. Continue current med ical management. Follow up with cardiology. Dictated By: ASIM GARCIA/GOPAL Conf#: [id number] DID#: [id number]
--- NOTE | 2016-11-24 12:06 | CONS ---
Date/Time of Note Date/Time of Note DATE: 11/24/16 TIME: 12:04 Assessment/Plan Assessment/Plan Additional Assessment/Plan Paroxysmal atrial fibrillation, currently sinus rhythm Preserved ejection fraction End-stage renal disease on hemodialysis Hypertension Colitis SIRS -No further atrial fibrillation seen on telemetry. Family at bedside and patient with history of paroxysmal atrial fibrillation but has been off anticoagulation secondary to bleeding issues. He is currently in sinus rhythm. I will continue beta-hector, if recurrence, would consider amiodarone. Fluid management via hemodialysis as per our nephrology colleagues. Continue telemetry monitoring. Consultation Date/Type/Reason Admit Date/Time Nov 22, 2016 at 20:45 Initial Consult Date Type of Consultation: cv 24 HR Interval Summary Free Text/Dictation Patient feeling better today, denies shortness of breath, palpitations or chest pain Exam/Review of Systems Vital Signs Vitals Vital Signs Date Time Temp Pulse Resp B/P Pulse Ox O2 Delivery O2 Flow Rate FiO2 11/24/16 11:57 97.7 64 19 106/47 98 11/24/16 08:00 Nasal Cannula 2.0 Intake and Output 11/23/16 11/23/16 11/24/16 14:59 22:59 06:59 Intake Total 300 ml 1050 ml Output Total 2000 ml Balance -1700 ml 1050 ml Exam Undergoing hemodialysis, family at bedside Constitutional: alert, frail, oriented Head: normocephalic Respiratory: other (Coarse breath sounds bilaterally, no wheezing) Cardiovascular: other (S1-S2 heard), regular rate and rhythm Gastrointestinal: bowel sounds, non-tender, soft Extremities: edema (Trace) Results Result Diagram: 11/24/16 0609 11/24/16 0609 Results 24 hrs Laboratory Tests Test 11/23/16 12:46 11/23/16 14:36 11/24/16 05:00 11/24/16 06:09 Hemoglobin 11.2 L 10.6 L 10.5 L Hematocrit 35.5 L 33.6 L 35.4 L Stool Occult Blood NEGATIVE White Blood Count 12.0 H Red Blood Count 4.02 L Mean Corpuscular Volume 88.1 Mean Corpuscular Hemoglobin 26.1 L Mean Corpuscular Hemoglobin Concent 29.7 L Red Cell Distribution Width 16.7 H Platelet Count 179 Mean Platelet Volume 10.4 Neutrophils % 86.1 H Lymphocytes % 9.0 L Monocytes % 3.1 Eosinophils % 0.8 Basophils % 0.3 Nucleated Red Blood Cells % 0.0 Neutrophils # 10.3 H Lymphocytes # 1.1 Monocytes # 0.4 Eosinophils # 0.1 Basophils # 0.0 Nucleated Red Blood Cells # 0.0 Sodium Level 145 H Potassium Level 4.2 Chloride Level 105 Carbon Dioxide Level 19 L Anion Gap 25 H Blood Urea Nitrogen 31 H Creatinine 9.28 #H Glucose Level 88 Calcium Level 9.1 Phosphorus Level 8.2 H Magnesium Level 2.0 Medications Medications Current Medications Ondansetron HCl (Zofran Inj) 4 mg Q6H PRN IV NAUSEA AND/OR VOMITING; Start at 02:00 Acetaminophen (Tylenol Tab) 650 mg Q6H PRN PO PAIN LEVEL 1-3 OR FEVER Last administered on 11/24/16 11:38; Admin Dose 650 MG; Start 11/23/16 at 02:00 Morphine Sulfate (morphine) 2 mg Q4H PRN IV PAIN LEVEL 7-10; Start 11/23/16 at 02:00 Pantoprazole (Protonix Iv) 40 mg DAILY@06 IV Last administered on 11/24/16 05 :28; Admin Dose 40 MG; Start 11/23/16 at 06:00 Hydralazine HCl (Apresoline) 10 mg Q4H PRN IV ELEVATED SYSTOLIC BP Last administered on 11/23/16 01:49; Admin Dose 10 MG; Start 11/23/16 at 02:00 Hydralazine HCl 20 mg 20 mg Q6H PRN IV ELEVATED SYSTOLIC BP; Start 11/23/16 at 02:00 Piperacillin Sod/ Tazobactam Sod (Zosyn 2.25gm/ 50ml (Pmx)) 50 ml @ 100 mls/hr Q12 IVPB Last administered on 11/24/16 08:08; Admin Dose 100 MLS/HR; Start 11/23/16 at 02:00 Aspirin (Aspirin) 81 mg DAILY PO Last administered on 11/24/16 08:09; Admin Dose 81 MG; Start 11/23/16 at 09:00 Metoprolol Tartrate (Lopressor) 50 mg BID PO Last administered on 11/24/16 08 :10; Admin Dose 50 MG; Start 11/23/16 at 09:00 Multivit/Ca Carb/ B Cmplx/FA/Prenat (Darcy-Jean-Pierre) 1 tab DAILY PO Last administered on 11/24/16 08:08; Admin Dose 1 TAB; Start 11/23/16 at 09:00 Nifedipine (Procardia Xl) 60 mg BID PO Last administered on 11/24/16 08:09; Admin Dose 60 MG; Start 11/23/16 at 09:00 Prednisone (Prednisone) 5 mg BID PO Last administered on 11/24/16 08:09; Admin Dose 5 MG; Start 11/23/16 at 09:00 Zolpidem Tartrate (Ambien) 5 mg HS PRN PO INSOMNIA Last administered on 22:32; Admin Dose 5 MG; Start 11/23/16 at 22:30 Epoetin Vishal (Epogen (Esrd)) 8,000 units TuThSa@17 SC ; Start 11/24/16 at 17:00 Skyler Isaac DO Nov 24, 2016 12:06
--- NOTE | 2016-11-24 13:44 | PN ---
Date/Time of Note Date/Time of Note DATE: 11/24/16 TIME: 13:43 Assessment/Plan VTE Prophylaxis VTE Prophylaxis Intervention: SCD's Lines/Catheters IV [facility] Type (from [facility] Peripheral IV Urinary Cath still in place: No Assessment/Plan Chief Complaint/Hosp Course 1. Sepsis, most probably secondary to underlying colitis. Other etiologies being ruled out. Continue antimicrobials. No evidence of any septic shock. Pancultures negative so far. 2. Abdominal pain. CT showing findings consistent with colitis which may be infectious or inflammatory in nature. The CT also showed distended gallbladder with mild thickening and pericholecystic edema with moderate biliary dilatation. The patient is scheduled for an MRCP. The patient being followed by gastroenterology. 3. End stage renal disease on hemodialysis. Continue hemodialysis as per nephrology. 4. Paroxysmal atrial fibrillation. The patient currently in sinus rhythm. The patient being followed by cardiology. Continue beta-blockers. 5. Hypothyroidism. Continue Synthroid. 6. Essential hypertension. Continue antihypertensives. 7. Anemia of chronic kidney disease. Epogen as per nephrology. 8. Dyslipidemia. Low-cholesterol diet. 9. History of prostate cancer. Currently on prednisone as per outpatient oncologist. 10. Fluids, electrolytes, and nutrition. Renal, low-cholesterol diet. 11. DVT prophylaxis. B/L SCDs. 12. Plan. Continue antimicrobials. Await MRCP. Await further recommendations from consultants. Case discussed with Dr. Limon. Problems: Subjective 24 Hr Interval Summary Free Text/Dictation Denies any abdominal pain. Continues to have diarrhea. Exam/Review of Systems Vital Signs Vitals Vital Signs Date Time Temp Pulse Resp B/P Pulse Ox O2 Delivery O2 Flow Rate FiO2 11/24/16 12:30 66 19 11/24/16 11:57 97.7 106/47 98 11/24/16 08:00 Nasal Cannula 2.0 Intake and Output 11/23/16 11/23/16 11/24/16 15:00 23:00 07:00 Intake Total 300 ml 1050 ml Output Total 2000 ml Balance -1700 ml 1050 ml Exam General: Adequately build 76 year-old male lying in bed in no apparent distress. HEENT: Normocephalic, atraumatic. Eyes: Anicteric sclerae, conjunctivae clear. ENT: Nasal septum midline, oral mucosa moist. Neck supple, no JVD noticed. Respiratory: Bilaterally clear breath sounds. No use of accessory muscles of respiration. No adventitious breath sounds. Cardiovascular: S1, S2 heard. No murmurs or gallops. Abdomen: Soft, nontender, and nondistended. Bowel sounds positive in all 4 quadrants. Genitourinary: Deferred. Extremities: No cyanosis, no clubbing, no edema. Peripheral pulses palpable. Neurologic: Cranial nerves II through XII grossly intact. The patient is awake, alert, and oriented. Skin: Normal skin turgor. No skin rashes. Results Result Diagram: 11/24/16 0609 11/24/16 0609 Results 24 hrs Laboratory Tests Test 11/23/16 14:36 11/24/16 05:00 11/24/16 06:09 Hemoglobin 10.6 L 10.5 L Hematocrit 33.6 L 35.4 L Stool Occult Blood NEGATIVE White Blood Count 12.0 H Red Blood Count 4.02 L Mean Corpuscular Volume 88.1 Mean Corpuscular Hemoglobin 26.1 L Mean Corpuscular Hemoglobin Concent 29.7 L Red Cell Distribution Width 16.7 H Platelet Count 179 Mean Platelet Volume 10.4 Neutrophils % 86.1 H Lymphocytes % 9.0 L Monocytes % 3.1 Eosinophils % 0.8 Basophils % 0.3 Nucleated Red Blood Cells % 0.0 Neutrophils # 10.3 H Lymphocytes # 1.1 Monocytes # 0.4 Eosinophils # 0.1 Basophils # 0.0 Nucleated Red Blood Cells # 0.0 Sodium Level 145 H Potassium Level 4.2 Chloride Level 105 Carbon Dioxide Level 19 L Anion Gap 25 H Blood Urea Nitrogen 31 H Creatinine 9.28 #H Glucose Level 88 Calcium Level 9.1 Phosphorus Level 8.2 H Magnesium Level 2.0 Medications Medications Current Medications Ondansetron HCl (Zofran Inj) 4 mg Q6H PRN IV NAUSEA AND/OR VOMITING; Start at 02:00 Acetaminophen (Tylenol Tab) 650 mg Q6H PRN PO PAIN LEVEL 1-3 OR FEVER Last administered on 11/24/16t 11:38; Admin Dose 650 MG; Start 11/23/16 at 02:00 Morphine Sulfate (morphine) 2 mg Q4H PRN IV PAIN LEVEL 7-10; Start 11/23/16 at 02:00 Pantoprazole (Protonix Iv) 40 mg DAILY@06 IV Last administered on 11/24/16 05 :28; Admin Dose 40 MG; Start 11/23/16 at 06:00 Hydralazine HCl (Apresoline) 10 mg Q4H PRN IV ELEVATED SYSTOLIC BP Last administered on 11/23/16 01:49; Admin Dose 10 MG; Start 11/23/16 at 02:00 Hydralazine HCl 20 mg 20 mg Q6H PRN IV ELEVATED SYSTOLIC BP; Start 11/23/16 at 02:00 Piperacillin Sod/ Tazobactam Sod (Zosyn 2.25gm/ 50ml (Pmx)) 50 ml @ 100 mls/hr Q12 IVPB Last administered on 11/24/16 08:08; Admin Dose 100 MLS/HR; Start 11/23/16 at 02:00 Aspirin (Aspirin) 81 mg DAILY PO Last administered on 11/24/16 08:09; Admin Dose 81 MG; Start 11/23/16 at 09:00 Metoprolol Tartrate (Lopressor) 50 mg BID PO Last administered on 11/24/16 08 :10; Admin Dose 50 MG; Start 11/23/16 at 09:00 Multivit/Ca Carb/ B Cmplx/FA/Prenat (Darcy-Jean-Pierre) 1 tab DAILY PO Last administered on 11/24/16 08:08; Admin Dose 1 TAB; Start 11/23/16 at 09:00 Prednisone (Prednisone) 5 mg BID PO Last administered on 11/24/16 08:09; Admin Dose 5 MG; Start 11/23/16 at 09:00 Zolpidem Tartrate (Ambien) 5 mg HS PRN PO INSOMNIA Last administered on 22:32; Admin Dose 5 MG; Start 11/23/16 at 22:30 Epoetin Vishal (Epogen (Esrd)) 8,000 units TuThSa@17 SC ; Start 11/24/16 at 17:00 Nifedipine (Procardia Xl) 30 mg BID PO ; Start 11/24/16 at 21:00 CARLIE BREWER NP Nov 24, 2016 13:44
--- NOTE | 2016-11-24 16:15 | PN ---
Date/Time of Note Date/Time of Note DATE: 11/24/16 TIME: 16:11 Assessment/Plan VTE Prophylaxis VTE Prophylaxis Intervention: ambulation, SCD's Lines/Catheters IV [facility]ter Type (from [facility]): Peripheral IV Urinary Cath still in place: No Assessment/Plan Chief Complaint/Hosp Course Assessment: Pancreatitis- improving CBD obstruction? Cholecystitis? Colitis- infectious versus inflammatory Plan: Colonoscopy tomorrow Endoscopy - risks/benefits/alternatives/indications of procedure and sedation/ anesthesia discussed with patient who states understading and gives informed consent to proceed. PARQ held and questions were answered. Stool for WBC/C-diff- negative MRCP- today Keep Npo Based on results of MRCP will advise further workup Subjective: Course reviewed with nursing staff Patient interviewed and examined All labs, imaging and other results reviewed The patient resting in bed awaiting MRCP- Continue to have loose stool Will plan for colonoscopy tomorrow Problems: Exam/Review of Systems Vital Signs Vitals Vital Signs Date Time Temp Pulse Resp B/P Pulse Ox O2 Delivery O2 Flow Rate FiO2 11/24/16 15:48 97.6 62 19 103/51 96 11/24/16 08:00 Nasal Cannula 2.0 Intake and Output 11/23/16 11/23/16 11/24/16 15:00 23:00 07:00 Intake Total 300 ml 1050 ml Output Total 2000 ml Balance -1700 ml 1050 ml Results Result Diagram: 11/24/16 0609 11/24/16 0609 Results 24 hrs Laboratory Tests Test 11/24/16 05:00 11/24/16 06:09 Stool Occult Blood NEGATIVE White Blood Count 12.0 H Red Blood Count 4.02 L Hemoglobin 10.5 L Hematocrit 35.4 L Mean Corpuscular Volume 88.1 Mean Corpuscular Hemoglobin 26.1 L Mean Corpuscular Hemoglobin Concent 29.7 L Red Cell Distribution Width 16.7 H Platelet Count 179 Mean Platelet Volume 10.4 Neutrophils % 86.1 H Lymphocytes % 9.0 L Monocytes % 3.1 Eosinophils % 0.8 Basophils % 0.3 Nucleated Red Blood Cells % 0.0 Neutrophils # 10.3 H Lymphocytes # 1.1 Monocytes # 0.4 Eosinophils # 0.1 Basophils # 0.0 Nucleated Red Blood Cells # 0.0 Sodium Level 145 H Potassium Level 4.2 Chloride Level 105 Carbon Dioxide Level 19 L Anion Gap 25 H Blood Urea Nitrogen 31 H Creatinine 9.28 #H Glucose Level 88 Calcium Level 9.1 Phosphorus Level 8.2 H Magnesium Level 2.0 Medications Medications Current Medications Ondansetron HCl (Zofran Inj) 4 mg Q6H PRN IV NAUSEA AND/OR VOMITING; Start at 02:00 Acetaminophen (Tylenol Tab) 650 mg Q6H PRN PO PAIN LEVEL 1-3 OR FEVER Last administered on 11/24/16 11:38; Admin Dose 650 MG; Start 11/23/16 at 02:00 Morphine Sulfate (morphine) 2 mg Q4H PRN IV PAIN LEVEL 7-10; Start 11/23/16 at 02:00 Pantoprazole (Protonix Iv) 40 mg DAILY@06 IV Last administered on 11/24/16 05 :28; Admin Dose 40 MG; Start 11/23/16 at 06:00 Hydralazine HCl (Apresoline) 10 mg Q4H PRN IV ELEVATED SYSTOLIC BP Last administered on 11/23/16 01:49; Admin Dose 10 MG; Start 11/23/16 at 02:00 Hydralazine HCl 20 mg 20 mg Q6H PRN IV ELEVATED SYSTOLIC BP; Start 11/23/16 at 02:00 Piperacillin Sod/ Tazobactam Sod (Zosyn 2.25gm/ 50ml (Pmx)) 50 ml @ 100 mls/hr Q12 IVPB Last administered on 11/24/16 08:08; Admin Dose 100 MLS/HR; Start 11/23/16 at 02:00 Aspirin (Aspirin) 81 mg DAILY PO Last administered on 11/24/16 08:09; Admin Dose 81 MG; Start 11/23/16 at 09:00 Metoprolol Tartrate (Lopressor) 50 mg BID PO Last administered on 11/24/16 08 :10; Admin Dose 50 MG; Start 11/23/16 at 09:00 Multivit/Ca Carb/ B Cmplx/FA/Prenat (Darcy-Jean-Pierre) 1 tab DAILY PO Last administered on 11/24/16 08:08; Admin Dose 1 TAB; Start 11/23/16 at 09:00 Prednisone (Prednisone) 5 mg BID PO Last administered on 11/24/16 08:09; Admin Dose 5 MG; Start 11/23/16 at 09:00 Zolpidem Tartrate (Ambien) 5 mg HS PRN PO INSOMNIA Last administered on t 22:32; Admin Dose 5 MG; Start 11/23/16 at 22:30 Epoetin Vishal (Epogen (Esrd)) 8,000 units TuThSa@17 SC ; Start 11/24/16 at 17:00 Nifedipine (Procardia Xl) 30 mg BID PO ; Start 11/24/16 at 21:00 LUIS RING Nov 24, 2016 16:15
[2016-11-24] MEDS ORDERED: BISACODYL (EC) 5 MG TAB PO ONE (16:30)
[2016-11-24] MEDS: EPOETIN 4000 UNITS/1 ML INJ (ESRD) SC SCH (16:32)
[2016-11-24] MEDS ORDERED: MAGNESIUM CITRATE 300 ML BTL PO ONE (17:30)
[2016-11-24] MEDS ORDERED: POLYETHYLENE GLYCOL 3350 119 GM POWDER PO ONE (18:30)
--- NOTE | 2016-11-24 18:31 | RADRPT ---
Vent Rate: 94 bpm RR Interval: 0 msec [place] Interval: 142 msec QRS Duration: 88 msec QT Interval: 458 msec QTC Interval: 572 msec P-R-T [place]: 62 - 58 - 50 degrees Normal sinus rhythm Minimal voltage criteria for LVH, may be normal variant Nonspecific ST and T wave abnormality Prolonged QT Abnormal ECG Electronically Signed By: Quinton Ann [id number]
[2016-11-24] MEDS: NIFEdipine (XL) 30 MG TAB PO SCH (21:00)
--- NOTE | 2016-11-24 23:18 | RADRPT ---
PROCEDURE: MRI MRCP. CLINICAL INDICATION: Biliary ductal dilatation. Abdominal pain. Colitis. TECHNIQUE: MRCP was performed without contrast. 3-D/multiplanar reformations and coronal rotating M IP images of the biliary tree were performed by the technologist and at an independent workstation. Evaluation is partially limited due to motion artifact. COMPARISON: CT dated 11/22/2016. FINDINGS: The common bile duct is nondilated measuring 7 mm in diameter and demonstrates normal dis zachary tapering. There are small intraluminal filling defects along the course of the common bile duct. There is moderate to severe intrahepatic biliary ductal dilatation with areas of alternating strict uring and dilatation and scattered intraluminal filling defects throughout the intrahepatic ducts. T here are innumerable cysts throughout the liver, most sub-centimeter in size. There is trace perihep atic fluid. There is mild dilatation of the pancreatic duct in the region of the distal tail measuring 4 mm in d iameter. The gallbladder is distended and demonstrates wall thickening with no intraluminal filling defect. There are moderate right and small left pleural effusions. There is severe wall thickening of the vi sualized colon. There are innumerable cysts throughout the kidneys, some of which demonstrate compli cated internal contents with associated fluid-fluid levels. IMPRESSION: 1. Irregular intraluminal filling defects within the common bile duct, which is nondilated. Moderat e to severe intrahepatic biliary ductal dilatation with areas of alternating stricturing and dilatat ion and scattered intraluminal filling defects throughout the intrahepatic ducts. Differential consi derations include recurrent pyogenic cholangiohepatitis and primary sclerosing cholangitis. 2. Innumerable hepatic cysts and innumerable renal cysts, some of which are complicated, consistent with polycystic liver and kidney disease. 3. Moderate right and small left pleural effusions. 4. Mild dilatation of the distal pancreatic duct measuring 4 mm. 5. Severe wall thickening of the visualized colon, consistent with colitis. Differential considerat ions include Clostridium difficile colitis. 6. Distended gallbladder with wall thickening, which is nonspecific. No intraluminal filling defect . 7. Trace perihepatic fluid. RPTAT: HLBP .Matias Gzumán MD, Date Time Electronically viewed and signed by .Matias Guzmán MD, on 11/24/2016 23:18 .P/
[2016-11-25] VITALS (18 sets, daily range): BP systolic 98–151; BP diastolic 47–101; PULSE 51–77; RESP 17–27
[2016-11-25] MEDS ORDERED: POLYETHYLENE GLYCOL 3350 119 GM POWDER PO ONE (06:00)
[2016-11-25] MEDS: PANTOPRAZOLE 40 MG INJ IV SCH (06:37)
[2016-11-25] MEDS: LEVOTHYROXINE 50 MCG TAB PO SCH (07:00)
[2016-11-25 07:16] LABS: CALCIUM 8.8 mg/dl (8.4-10.2); CREATININE 5.67 mg/dl (0.61-1.24); MAGNESIUM 2.7 mg/dl (1.7-2.5); POTASSIUM 4.2 mmol/L (3.5-5.1)
[2016-11-25] MEDS: SEVELAMER CARBONATE 0.8 GM PKT PO SCH ×3 (07:55→17:55)
[2016-11-25] MEDS ORDERED: BISACODYL (EC) 5 MG TAB PO ONE (08:00)
[2016-11-25] MEDS: NIFEdipine (XL) 30 MG TAB PO SCH ×2 (08:19→21:45)
[2016-11-25] MEDS: predniSONE 5 MG TAB PO SCH ×2 (08:19→21:43)
[2016-11-25] MEDS: ASPIRIN 81 MG TAB PO SCH (08:19)
[2016-11-25] MEDS: METOPROLOL 50 MG TAB PO SCH ×2 (08:19→21:45)
[2016-11-25] MEDS: MULTIVIT/CA CARB/B CMPLX/FA TAB PO SCH (08:20)
[2016-11-25 09:13] LABS: BASOPHILS % 0.4 % (0.0-2.0); EOSINOPHILS # 0.1 10^3/ul (0.0-0.5); EOSINOPHILS % 0.9 % (0.0-7.0); HEMATOCRIT 33.6 % (42.0-52.0); LYMPHOCYTES # 1.1 10^3/ul (0.8-2.9); LYMPHOCYTES % 9.3 % (15.0-51.0); MEAN CORPUSCULAR HEMOGLOBIN 25.6 pg (29.0-33.0); MEAN CORPUSCULAR HGB CONC 29.8 g/dl (32.0-37.0); MEAN CORPUSCULAR VOLUME 86.2 fl (82.0-101.0); MEAN PLATELET VOLUME 10.3 fl (7.4-10.4); MONOCYTE # 0.6 10^3/ul (0.3-0.9); MONOCYTES % 5.1 % (0.0-11.0); NEUTROPHIL # 9.5 10^3/ul (1.6-7.5); NEUTROPHILS % 83.8 % (39.0-77.0); PLATELET COUNT 222 10^3/UL (140-415); WHITE BLOOD COUNT 11.3 10^3/ul (4.8-10.8)
[2016-11-25 09:17] LABS: AMYLASE 119 U/L (11-123)
--- NOTE | 2016-11-25 09:18 | PN ---
Date/Time of Note Date/Time of Note DATE: 11/25/16 TIME: 09:14 Assessment/Plan VTE Prophylaxis VTE Prophylaxis Intervention: SCD's Lines/Catheters IV [facility] ([facility] Peripheral IV Urinary Cath still in place: No Assessment/Plan Chief Complaint/Hosp Course 1. Sepsis, secondary to underlying colitis. Other etiologies being ruled out. Continue antimicrobials. No evidence of any septic shock. Pancultures negative so far. The patient is scheduled for a colonoscopy. 2. Abdominal pain. CT showing findings consistent with colitis which may be infectious or inflammatory in nature. The CT also showed distended gallbladder with mild thickening and pericholecystic edema with moderate biliary dilatation. MRCP showing irregular intraluminal filling defects within the common bile duct, which is nondilated with moderate to severe intrahepatic biliary ductal dilatation with areas of alternating stricturing and dilatation and scattered intraluminal filling defects throughout the intrahepatic ducts ( differential considerations include recurrent pyogenic cholangiohepatitis and primary sclerosing cholangitis). Continue antimicrobials. Await further recommendations from gastroenterology. 3. End stage renal disease on hemodialysis. Continue hemodialysis as per nephrology. 4. Paroxysmal atrial fibrillation. The patient currently in sinus rhythm. The patient being followed by cardiology. Continue beta-blockers. 5. Hypothyroidism. Continue Synthroid. 6. Essential hypertension. Continue antihypertensives. 7. Anemia of chronic kidney disease. Epogen as per nephrology. 8. Dyslipidemia. Low-cholesterol diet. 9. History of prostate cancer. Currently on prednisone as per outpatient oncologist. 10. Fluids, electrolytes, and nutrition. Renal, low-cholesterol diet. Currently NPO for colonoscopy. 11. DVT prophylaxis. B/L SCDs. 12. Plan. Continue antimicrobials. Await further recommendations from consultants. Case discussed with Dr. Limon. Problems: Subjective 24 Hr Interval Summary Free Text/Dictation Denies any abdominal pain. Exam/Review of Systems Vital Signs Vitals Vital Signs Date Time Temp Pulse Resp B/P Pulse Ox O2 Delivery O2 Flow Rate FiO2 11/25/16 08:10 68 11/25/16 07:34 98.5 18 114/53 100 11/24/16 21:30 Nasal Cannula 3.0 Intake and Output 11/24/16 11/24/16 11/25/16 15:00 23:00 07:00 Intake Total 500 ml 100 ml 600 ml Output Total 1500 ml Balance -1000 ml 100 ml 600 ml Exam General: Adequately build 76 year-old male lying in bed in no apparent distress. HEENT: Normocephalic, atraumatic. Eyes: Anicteric sclerae, conjunctivae clear. ENT: Nasal septum midline, oral mucosa moist. Neck supple, no JVD noticed. Respiratory: Bilaterally clear breath sounds. No use of accessory muscles of respiration. No adventitious breath sounds. Cardiovascular: S1, S2 heard. No murmurs or gallops. Abdomen: Soft, nontender, and nondistended. Bowel sounds positive in all 4 quadrants. Genitourinary: Deferred. Extremities: No cyanosis, no clubbing, no edema. Peripheral pulses palpable. Neurologic: Cranial nerves II through XII grossly intact. The patient is awake, alert, and oriented. Skin: Normal skin turgor. No skin rashes. Results Result Diagram: 11/24/16 0609 11/25/16 0538 Results 24 hrs Laboratory Tests Test 11/25/16 05:38 11/25/16 07:50 Sodium Level 140 Potassium Level 4.2 Chloride Level 101 Carbon Dioxide Level 17 L Anion Gap 26 H Blood Urea Nitrogen 27 H Creatinine 5.67 #H Glucose Level 135 # Calcium Level 8.8 Magnesium Level 2.7 H White Blood Count 11.3 H Red Blood Count 3.90 L Hemoglobin 10.0 L Hematocrit 33.6 L Mean Corpuscular Volume 86.2 Mean Corpuscular Hemoglobin 25.6 L Mean Corpuscular Hemoglobin Concent 29.8 L Red Cell Distribution Width 17.0 H Platelet Count 222 # Mean Platelet Volume 10.3 Neutrophils % 83.8 H Lymphocytes % 9.3 L Monocytes % 5.1 Eosinophils % 0.9 Basophils % 0.4 Nucleated Red Blood Cells % 0.0 Neutrophils # 9.5 H Lymphocytes # 1.1 Monocytes # 0.6 Eosinophils # 0.1 Basophils # 0.0 Nucleated Red Blood Cells # 0.0 Medications Medications Current Medications Ondansetron HCl (Zofran Inj) 4 mg Q6H PRN IV NAUSEA AND/OR VOMITING; Start at 02:00 Acetaminophen (Tylenol Tab) 650 mg Q6H PRN PO PAIN LEVEL 1-3 OR FEVER Last administered on 11/24/16t 11:38; Admin Dose 650 MG; Start 11/23/16 at 02:00 Morphine Sulfate (morphine) 2 mg Q4H PRN IV PAIN LEVEL 7-10; Start 11/23/16 at 02:00 Pantoprazole (Protonix Iv) 40 mg DAILY@06 IV Last administered on 11/25/16 06 :37; Admin Dose 40 MG; Start 11/23/16 at 06:00 Hydralazine HCl (Apresoline) 10 mg Q4H PRN IV ELEVATED SYSTOLIC BP Last administered on 11/23/16 01:49; Admin Dose 10 MG; Start 11/23/16 at 02:00 Hydralazine HCl 20 mg 20 mg Q6H PRN IV ELEVATED SYSTOLIC BP; Start 11/23/16 at 02:00 Piperacillin Sod/ Tazobactam Sod (Zosyn 2.25gm/ 50ml (Pmx)) 50 ml @ 100 mls/hr Q12 IVPB Last administered on 11/24/16 21:44; Admin Dose 100 MLS/HR; Start 11/23/16 at 02:00 Aspirin (Aspirin) 81 mg DAILY PO Last administered on 11/24/16 08:09; Admin Dose 81 MG; Start 11/23/16 at 09:00 Metoprolol Tartrate (Lopressor) 50 mg BID PO Last administered on 11/24/16 08 :10; Admin Dose 50 MG; Start 11/23/16 at 09:00 Multivit/Ca Carb/ B Cmplx/FA/Prenat (Darcy-Jean-Pierre) 1 tab DAILY PO Last administered on 11/24/16 08:08; Admin Dose 1 TAB; Start 11/23/16 at 09:00 Prednisone (Prednisone) 5 mg BID PO Last administered on 11/24/16 21:47; Admin Dose 5 MG; Start 11/23/16 at 09:00 Zolpidem Tartrate (Ambien) 5 mg HS PRN PO INSOMNIA Last administered on 22:32; Admin Dose 5 MG; Start 11/23/16 at 22:30 Epoetin Vishal (Epogen (Esrd)) 8,000 units TuThSa@17 SC Last administered on 16:32; Admin Dose 8,000 UNITS; Start 11/24/16 at 17:00 Nifedipine (Procardia Xl) 30 mg BID PO ; Start 11/24/16 at 21:00 CARLIE BREWER NP Nov 25, 2016 09:18
--- NOTE | 2016-11-25 09:27 | PN ---
DATE: 11/25/2016 SUBJECTIVE: The patient is stable. No events overnight. No fevers, chills, nausea, vomiting. OBJECTIVE: VITAL SIGNS: Blood pressure is 114/53, temperature 98.5, pulse 71, respiration 18. HEENT: Head is normocephalic. NECK: Supple. HEART: Regular rate. LUNGS: Show diminished breath sounds at base. ABDOMEN: Soft, nontender to palpation without rebound or guarding. EXTREMITIES: Negative for clubbing, cyanosis. No edema. DERMATOLOGIC: No rashes. MUSCULOSKELETAL: No joint effusions. NEUROLOGIC: No change in exam. MEDICATIONS: The patient's medications have been reviewed. LABORATORY DATA: Showed sodium 140, potassium 4.2, BUN 27, creatinine 5.67. ASSESSMENT AND PLAN: 1. End-stage renal disease. The patient is on dialysis Monday, , Monday. He had hemodi alysis yesterday and tolerated it well. Anticipate dialysis tomorrow. 2. Hyperkalemia, resolved. 3. Mineral bone disorder. Monitor calcium and phosphorus levels. Continue phosphate binders. 4. Anemia. Monitor hemoglobin and hematocrit levels. Continue Epogen. 5. Hypertension. Continue current blood pressure regimen. 6. Coronary artery disease. Continue current medical management. 7. Diabetes. Continue Accu-Cheks and insulin sliding scale. 8. Abdominal pain with pancreatitis, colitis. Continue current medical management. Follow up with primary team. 9. Paroxysmal atrial fibrillation, currently in sinus rhythm. Continue current treatment plan. Fo llow up with cardiology. Dictated By: ASIM GARCIA/GOPAL Conf#: [id number] DID#: [id number]
[2016-11-25] MEDS: PIPER-TAZO 2.25 GM (PMX) 50 ML IVPB SCH ×2 (09:39→21:45)
--- NOTE | 2016-11-25 11:48 | CONS ---
Date/Time of Note Date/Time of Note DATE: 11/25/16 TIME: 11:47 Assessment/Plan Assessment/Plan Additional Assessment/Plan Paroxysmal atrial fibrillation, currently sinus rhythm Preserved ejection fraction End-stage renal disease on hemodialysis Hypertension Colitis SIRS -No further atrial fibrillation seen on telemetry. In discussion with family yesterday, patient with history of paroxysmal atrial fibrillation but has been off anticoagulation secondary to bleeding issues. He is currently in sinus rhythm. I will continue beta-hector, if recurrence, would consider amiodarone. Fluid management via hemodialysis as per our nephrology colleagues. Continue telemetry monitoring. Consultation Date/Type/Reason Admit Date/Time Nov 22, 2016 at 20:45 Type of Consultation: cv 24 HR Interval Summary Free Text/Dictation Denies chest pain, shortness of breath or palpitations Exam/Review of Systems Vital Signs Vitals Vital Signs Date Time Temp Pulse Resp B/P Pulse Ox O2 Delivery O2 Flow Rate FiO2 11/25/16 11:26 97.6 77 17 130/59 100 11/25/16 09:42 Nasal Cannula 3.0 Intake and Output 11/24/16 11/24/16 11/25/16 15:00 23:00 07:00 Intake Total 500 ml 100 ml 600 ml Output Total 1500 ml Balance -1000 ml 100 ml 600 ml Exam No apparent distress Constitutional: alert, frail, oriented Head: normocephalic Respiratory: other (Coarse breath sounds bilaterally, no wheezing) Cardiovascular: other (S1-S2 heard), regular rate and rhythm Gastrointestinal: bowel sounds, soft Extremities: edema Results Result Diagram: 11/25/16 0750 11/25/16 0538 Results 24 hrs Laboratory Tests Test 11/25/16 05:38 11/25/16 07:50 Sodium Level 140 Potassium Level 4.2 Chloride Level 101 Carbon Dioxide Level 17 L Anion Gap 26 H Blood Urea Nitrogen 27 H Creatinine 5.67 #H Glucose Level 135 # Calcium Level 8.8 Phosphorus Level 7.7 H Magnesium Level 2.7 H Amylase Level 119 Lipase 256 White Blood Count 11.3 H Red Blood Count 3.90 L Hemoglobin 10.0 L Hematocrit 33.6 L Mean Corpuscular Volume 86.2 Mean Corpuscular Hemoglobin 25.6 L Mean Corpuscular Hemoglobin Concent 29.8 L Red Cell Distribution Width 17.0 H Platelet Count 222 # Mean Platelet Volume 10.3 Neutrophils % 83.8 H Lymphocytes % 9.3 L Monocytes % 5.1 Eosinophils % 0.9 Basophils % 0.4 Nucleated Red Blood Cells % 0.0 Neutrophils # 9.5 H Lymphocytes # 1.1 Monocytes # 0.6 Eosinophils # 0.1 Basophils # 0.0 Nucleated Red Blood Cells # 0.0 Medications Medications Current Medications Ondansetron HCl (Zofran Inj) 4 mg Q6H PRN IV NAUSEA AND/OR VOMITING; Start at 02:00 Acetaminophen (Tylenol Tab) 650 mg Q6H PRN PO PAIN LEVEL 1-3 OR FEVER Last administered on 11/24/16 11:38; Admin Dose 650 MG; Start 11/23/16 at 02:00 Morphine Sulfate (morphine) 2 mg Q4H PRN IV PAIN LEVEL 7-10; Start 11/23/16 at 02:00 Pantoprazole (Protonix Iv) 40 mg DAILY@06 IV Last administered on 11/25/16 06 :37; Admin Dose 40 MG; Start 11/23/16 at 06:00 Hydralazine HCl (Apresoline) 10 mg Q4H PRN IV ELEVATED SYSTOLIC BP Last administered on 11/23/16 01:49; Admin Dose 10 MG; Start 11/23/16 at 02:00 Hydralazine HCl 20 mg 20 mg Q6H PRN IV ELEVATED SYSTOLIC BP; Start 11/23/16 at 02:00 Piperacillin Sod/ Tazobactam Sod (Zosyn 2.25gm/ 50ml (Pmx)) 50 ml @ 100 mls/hr Q12 IVPB Last administered on 11/25/16 09:39; Admin Dose 100 MLS/HR; Start 11/23/16 at 02:00 Aspirin (Aspirin) 81 mg DAILY PO Last administered on 11/24/16 08:09; Admin Dose 81 MG; Start 11/23/16 at 09:00 Metoprolol Tartrate (Lopressor) 50 mg BID PO Last administered on 11/24/16 08 :10; Admin Dose 50 MG; Start 11/23/16 at 09:00 Multivit/Ca Carb/ B Cmplx/FA/Prenat (Darcy-Jean-Pierre) 1 tab DAILY PO Last administered on 11/24/16 08:08; Admin Dose 1 TAB; Start 11/23/16 at 09:00 Prednisone (Prednisone) 5 mg BID PO Last administered on 11/24/16 21:47; Admin Dose 5 MG; Start 11/23/16 at 09:00 Zolpidem Tartrate (Ambien) 5 mg HS PRN PO INSOMNIA Last administered on 22:32; Admin Dose 5 MG; Start 11/23/16 at 22:30 Epoetin Vishal (Epogen (Esrd)) 8,000 units TuThSa@17 SC Last administered on 16:32; Admin Dose 8,000 UNITS; Start 11/24/16 at 17:00 Nifedipine (Procardia Xl) 30 mg BID PO ; Start 11/24/16 at 21:00 Skyler Isaac DO Nov 25, 2016 11:48
--- NOTE | 2016-11-25 14:25 | RADRPT ---
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 Physician: SKYLER ISAAC Quality: Adequate Procedures: Transthoracic echocardiogram with complete 2D, M-Mode, and doppler examination. Indications: Atrial Fibrillation. 2D/M Mode Doppler Measurement Value Normal Ranges Measurement Value Normal Ranges AoR Diam MM 3.1 cm JULES Vmax 2.4 cm2 ACS MM 1.9 cm JULES VTI 2.4 cm2 LA/Ao MM 1.3 AV Peak Kulwinder 1.0 m/sec LA Dimen MM 4.1 cm AV Peak PG 3.6 mmHg LVIDd 2D 4.8 3.5 - 5.6 cm LVOT Peak Kulwinder 0.9 m/sec LVIDs 2D 3.3 2.1 - 4.1 cm LVOT Peak PG 3.2 mmHg LVPWd 2D 1.2 0.6 - 1.1 cm MV E Peak Kulwinder 0.9 m/sec IVSd 2D 1.2 0.6 - 1.1 cm MV A Peak Kulwinder 0.8 m/sec EDV 2D 109.6 cm3 MV E/A 1.1 ESV 2D 35.4 cm3 MV Decel Time 189 msec LA Dimen 2D 4.1 2.3 - 4.0 cm MV Decel [place] 5 LVOT Diam 1.8 cm MV E/A 1.1 TR Peak Kulwinder 2.7 m/sec TR Peak PG 33.3 mmHg RVSP 36.0 mmHg Findings Left Ventricle: Normal left ventricular systolic function. Normal left ventricular cavity size. Mild concentric left ventricular hypertrophy. Ejection fraction is visually estimated at 55 %. Abnormal Diastolic Function. Right Ventricle: Normal right ventricular size. Normal right ventricular systolic function. Left Atrium: There is mild enlargement of left atrium. Right Atrium: The right atrium is normal in size. Mitral Valve: Mild mitral leaflet calcification. Mild mitral annular calcification. Trace mitral regurgitation. Aortic Valve: Normal appearance of the aortic valve. No significant aortic stenosis or insufficiency. Tricuspid Valve: Normal appearance and function of the tricuspid valve with trace physiologic regurgitation. Estimated peak PA systolic pressure 36 mmHg. Pulmonic Valve: Pulmonic valve not well visualized. There is trace pulmonic regurgitation. Pericardium: Normal pericardium with no significant pericardial effusion. Left pleural effusion seen. Aorta: Normal aortic root. IVC: Normal size and normal respiratory collapse consistent with normal right atrial pressure. Conclusions 1.Normal left ventricular systolic function. Normal left ventricular cavity size. Mild concentric left ventricular hypertrophy. Ejection fraction is visually estimated at 55 %. Abnormal Diastolic Function. 2.Normal right ventricular size. Normal right ventricular systolic function. 3.There is mild enlargement of left atrium. 4.The right atrium is normal in size. 5.No significant valvular stenosis or regurgitation seen. 6.Normal pericardium with no significant pericardial effusion. Left pleural effusion seen. Electronically Signed By: Skyler Isaac 25-Nov-2016 14:23:59 -0700 Patient Name: MALIHA WILEY Study Date: 24-Nov-2016 [id number]
[2016-11-25] MEDS ORDERED: PROPOFOL 20 ML ONE ×2 (15:45→16:26)
[2016-11-25] MEDS ORDERED: MIDAZOLAM 1 MG/ML 2 ML INJ ONE (15:45)
[2016-11-25] MEDS ORDERED: LIDOCAINE 2% (SDV) 5 ML INJ ONE (15:45)
--- NOTE | 2016-11-25 16:49 | OPR ---
Date/Time of Note Date/Time of Note DATE: 11/25/16 TIME: 16:32 Operative Report Free Text/Dictation Recommendations: 1. f/u pathology results 2. as bleeding is from the sigmoid polyp/mass that is too large to be resected endoscopically, if pt continues to bleed will need surgical resection 3. surgical consult Procedure Date: Nov 25, 2016 Preoperative Diagnosis anemia, hematochezia Postoperative Diagnosis EGD 1. antral and body erythema: biopsy taken to r/o H. pylori 2. Mallery cabrera tear, healing Colonoscopy 1. Two large sigmoid polyps, about 4-5 cm in size, oozing of blood, likely the bleeding source. Biopsies taken to r/o dysplasia. 2. 1 cm transverse colon polyp s/p forcep polypectomy 3. patchy erythema 4. Diverticulosis in the sigmoid 5. internal hemorrhoids. Operation/Procedure Performed EGD with biopsies Colonoscopy with biopsies and tattoo of proximal and distal region of the sigmoid polyps Surgeon see signature line Compliance Aide none Anesthesia Type: MAC Anesthesiologist: SETH GERMAIN MD Estimated Blood Loss: 0 - 10 ml's Transfusion none Specimen 1. antrum and body biopsies 2. random right colon biopsies 3. transverse colon polyp 4. random left colon biopsies 5. sigmoid polyp/mass biopsies Grafts/Implants none Complications none Pt Condition Post Procedure: stable Disposition: PACU Indications GIB, anemia, colitis Procedure Description After time out and informed consent, patient sedated by Dr. Germain. After adequate sedation, I inserted an adult EGD scope from the mouth and advanced to 2nd portion of the duodenum. I then withdraw the EGD scope to stomach where I performed retroflexion to evaluate the cardia and fundus. I then withdraw the EGD scope while removing air. Afterwards patient turned around for colonoscopy. Perianal exam and DENILSON normal except with maroon colored blood. I then advanced the colonoscope from the anus and advanced to cecum as evidenced by IC valve and appendiceal orifice. I then withdraw the colonoscope while examining the colon lumen circumferentially. Retroflexion in rectum showed internal hermorrhoids. MIRIAM WESTBROOK MD Nov 25, 2016 16:46
[2016-11-25] MEDS ORDERED: ONDANSETRON 4 MG INJ IV PRN (17:00)
[2016-11-25 19:38] LABS: HEMATOCRIT 32.1 % (42.0-52.0); HEMOGLOBIN 9.5 g/dl (14.0-18.0)
[2016-11-26] VITALS (20 sets, daily range): BP systolic 102–196; BP diastolic 47–81; PULSE 50–79; RESP 17–22
[2016-11-26 00:52] LABS: HEMATOCRIT 32.6 % (42.0-52.0); HEMOGLOBIN 9.7 g/dl (14.0-18.0)
[2016-11-26] MEDS: hydrALAzine 20 MG INJ IV PRN (00:53)
--- NOTE | 2016-11-26 01:39 | RADRPT ---
PROCEDURE: XR Hip. CLINICAL INDICATION: Fall with bilateral hip pain. Reference marker is directed towards the proxima l right femoral diaphysis. TECHNIQUE: AP and frog lateral views of the bilateral hips were performed. COMPARISON: Left hip plain film series dated 10/12/2015. FINDINGS: There is normal mineralization and alignment. No fracture or osseous lesion is identified. There are normal joints without evidence of arthritis or effusion. Bilateral vascular calcifications. The sof t tissues are otherwise unremarkable. IMPRESSION: No acute fracture in the bilateral hips. RPTAT: [facility]U Physician Raffaele Date Time Electronically viewed and signed by Physician Raffaele on 11/26/2016 01:39 RS/
--- NOTE | 2016-11-26 01:55 | RADRPT ---
PROCEDURE: X-ray lumbar spine CLINICAL INDICATION: Fall with low back pain. TECHNIQUE: 3 views of the lumbar spine. COMPARISON: CT examination of the abdomen and pelvis dated 11/22/2016. FINDINGS: Rotatory levoscoliosis at the thoracolumbar junction. Anterior endplate osteophytes seen throughout the lumbar spine. Mild anterior wedging seen at the T1 1, T12, L1 and L2 levels, with mild anterior narrowing of the T1 vertebral body. Findings are otherw ise age indeterminate and nonspecific. Recommend CT examination of the thoracic spine for further ev aluation. Faint sclerotic lesions at T12 suggest osseous metastatic deposits. This finding may be further eval uated on follow-up CT examination of the thoracic spine. Transitional vertebral anatomy at S1 with lumbarization of the S1 vertebral body, and possible chron ic instability at the S1 right sacral ala. This is evidenced by mild sclerotic changes seen in this region. This finding may be further evaluated on follow-up CT examination of the thoracic and lumbar spines. No acute fracture or dislocation. Posterior facet degenerative changes seen at the L5-S1 level. Atherosclerotic calcifications in the abdominal aorta. IMPRESSION: 1. 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 2. Rotatory levoscoliosis at the thoracolumbar junction. 3. Mild degenerative changes in the lumbar spine. 4. Mild anterior wedging at T11-L2 levels, with mild narrowing of the T11 vertebral body. 5. Faint sclerotic lesions at T12 suggest osseous metastatic deposits. 6. Recommend CT examination of the thoracic spine for further evaluation. 7. Otherwise, no acute fracture. These findings, impression, and recommendation for CT examination were discussed with the patient's nurse Janine of [address] telemetry unit at the conclusion of this examin ation by the undersigned interpreting radiologist on 11/26/2016 at 0150 hours. RPTAT: UU Physician Raffaele Date Time Electronically viewed and signed by Physician Raffaele on 11/26/2016 01:55 RS/
--- NOTE | 2016-11-26 01:58 | RADRPT ---
PROCEDURE: Pelvis x-ray CLINICAL INDICATION: Fall with hip and pelvic pain. TECHNIQUE: Single AP view of the pelvis performed. COMPARISON: Plain film pelvis dated 10/12/2015. FINDINGS: Normal mineralization, architecture and alignment. No fracture or osseous lesion identified. There are no significant degenerative changes. Vascular calcifications. Soft tissues otherwise unremarkable. IMPRESSION: No acute fracture or subluxation. RPTAT: [facility] Physician Raffaele Date Time Electronically viewed and signed by Mickey Jim Physician on 11/26/2016 01:58 RS/
--- NOTE | 2016-11-26 03:26 | RADRPT ---
PROCEDURE: Noncontrast CT Head. CLINICAL INDICATION: Trauma TECHNIQUE: Noncontrast CT of the head was obtained. The administered radiation dose was CTDI vol = 42 mGy, DLP = 720 mGy-cm. One or more of the following dose reduction techniques were used: automate d exposure control, adjustment of the mA and/or kV according to patient size and/or use of iterative reconstruction technique. COMPARISON: 06/29 16 FINDINGS: The ventricles and cortical sulci are mild to moderately enlarged. There is mild to moderate decrea sed attenuation within the periventricular and subcortical white matter compatible with chronic micr ovascular changes. Some small, predominantly fluid attenuating bilateral subdural collections are slightly increased in size. Some minimal hyperdensity is noted in the left convexity collection. There is no acute intrac ranial hemorrhage or extra-axial fluid collection. There is no mass effect. No midline shift is iden tified. There is no loss of yang-white differentiation to suggest acute infarction. The orbits are within normal limits. The paranasal sinuses are well aerated. No destructive osseous lesion is identified. IMPRESSION: Bilateral , predominantly chronic subdural collections with some minimal acute component on the left . The collections are slightly increased in size compared to the prior. Mild to moderate diffuse parenchymal volume loss and chronic microvascular changes. Critical findings were discussed with Janine Galdamez R.N. at approximately 11/26/2016 3:23:47 AM. RPTAT: HIKT .Florian Beaulieu MD, Date Time Electronically viewed and signed by .Florian Beaulieu MD, MD on 11/26/2016 03:26 .T/
--- NOTE | 2016-11-26 04:02 | RADRPT ---
PROCEDURE: CT Cervical Spine without contrast. CLINICAL INDICATION: Trauma TECHNIQUE: Noncontrast CT of the cervical spine was performed with axial images. Coronal and sagitta l images were also performed. The administered radiation dose was CTDI vol = 22.3 mGy, DLP = 540 mGy -cm. COMPARISON: There are no similar studies submitted for comparison. FINDINGS: Some posterior disc osteophyte complexes are seen throughout the cervical spine with moderate to mar ked spinal canal narrowing at C3-4 and moderate spinal canal narrowing at C5-6. Neural foraminal valdez rowing is also present. Vertebral body stature and alignment are maintained. No acute fracture or subluxation is identified. The paravertebral and paraspinous soft tissues are unremarkable. Atherosclerotic calcifications are noted in the carotid arteries. Some scarring is noted within the right lung apex. IMPRESSION: No acute fracture or subluxation. RPTAT: HIKT .Florian Beaulieu MD, MD Date Time Electronically viewed and signed by .Florian Beaulieu MD, on 11/26/2016 04:02 .T/
--- NOTE | 2016-11-26 04:29 | RADRPT ---
PROCEDURE: CT Thoracic Spine without contrast. CLINICAL INDICATION: Trauma TECHNIQUE: Noncontrast CT of the thoracic spine was performed with axial images. Coronal and sagitta l images were also performed. The administered radiation dose was CTDI vol = 9.5 mGy, DLP = 332 mG y-cm. COMPARISON: There are no similar studies submitted for comparison. FINDINGS: Vertebral body stature and alignment are maintained. No acute fracture or subluxation is identified. The paravertebral and paraspinous soft tissues are unremarkable. Sclerosis is noted within the T6, T7, T8, T9 and T12 vertebral bodies with some extension into the p osterior elements at the levels of T6-T8. Some sclerosis is also noted within some of the adjacent r ibs. Small to moderate bilateral pleural effusions are partially seen. Coronary artery calcifications are noted. IMPRESSION: No acute fracture or subluxation. 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 RPTAT: HIKT .Florian Beaulieu MD, MD Date Time Electronically viewed and signed by .Florian Beaulieu MD, on 11/26/2016 04:29 .T/
--- NOTE | 2016-11-26 04:33 | RADRPT ---
PROCEDURE: CT Lumbar Spine. CLINICAL INDICATION: Trauma TECHNIQUE: Noncontrast CT of the lumbar spine was performed with multiplanar reformatted images gen erated from the axial acquired data. The administered radiation dose was CTDI vol = 9.2 mGy, DLP = 235 mGy-cm. One or more of the following dose reduction techniques were used: automated exposure con trol, adjustment of the mA and/or kV according to patient size and/or use of iterative reconstructio n technique. COMPARISON: There are no similar studies submitted for comparison. FINDINGS: SCOLIOSIS: No significant scoliosis. LORDOSIS: Within normal limits. VERTEBRAL BODY HEIGHTS: Maintained. ALLIGNMENT: Within normal limits. OSSEOUS STRUCTURES: There is no destructive osseous lesion.There is no acute fracture. DISCS: The discs are normal in height. T12-L1 : There is no disc herniation, spinal canal, or foraminal stenosis. L1-L2 : There is no disc herniation, spinal canal, or foraminal stenosis. L2-L3 : There is no disc herniation, spinal canal, or foraminal stenosis. L3-L4 : There is no disc herniation, spinal canal, or foraminal stenosis. L4-L5 : There is no disc herniation, spinal canal, or foraminal stenosis. L5-S1 : There is mild diffuse disc bulge with mild bilateral facet arthrosis and ligamentum flavum h ypertrophy. This causes some mild spinal canal narrowing as well as mild right and moderate left lottie ral foraminal narrowing. SACRUM: The sacroiliac joints are intact. OTHER: Atherosclerotic calcifications are noted in the aorta and its branches. Polycystic kidney dis ease is noted. IMPRESSION: No acute fracture or subluxation. RPTAT: HIKT .Florian Beaulieu MD, Date Time Electronically viewed and signed by .Florian Beaulieu MD, on 11/26/2016 04:32 .T/
--- NOTE | 2016-11-26 04:39 | EN ---
Date/Time of Note Date/Time of Note DATE: 11/26/16 TIME: 04:39 Event Note Medicine Medicine Event Note Was called to the room to assess the patient after patient had a unwitnessed fall. Patient apparently got out of bed and was trying to go to the bathroom where he slippe and fell and landedd hitting his pelvis and his head on the floor. Patient denied any loss of consciousness. He did complain of having a headache. Patient was sent to have a stat CT of the brain as well as imaging studies of the C-spine lumbar spine thoracic spine as well as the hips. patient was seen and examined at the bedside. Patient stated that he had a headache that have resolved. He did state that he had some right-sided neck pain. Vital signs stable General: Patient is lying in bed in no acute distress. Ss. The patient is alert oriented -3 lying comfortably in bed. HEENT: there does not appear to be any acute bruising or trauma visible on the head on examination. Neck: Supple, patient does have some mild tenderness to palpation of the right upper trapezius muscle. No tenderness to palpation along the cervical spine to palpation. Lungs: Clear to auscultation bilaterally no crackles rales or wheezing Heart: Normal S1-S2, Regular rhythm and rate. Abdomen: Soft , nontender, nondistended , bowel sounds are present. No guarding no rebound tenderness , No masses or organomegaly. No costovertebral temporal angle mass Extremities: Normal to inspection, no edema no cyanosis Neurologic: Normal mental status, speech normal, cranial nerves II through XII are intact, motor and sensory are intact, no focal weakness Musculoskeletal: Tenderness to palpation of the right upper trapezius muscle. Full range of motion 4 Assessment and plan: #1 Unwitnessed fall: Patient denies any loss of consciousness. At the current time he is alert and oriented 3 and he is at his baseline mentation. He states that he wanted to go to the bathroom and got up. He did not call for the nurse. CAT scan of the brain without contrast: Bilateral , predominantly chronic subdural collections with some minimal acute component on the left. The collections are slightly increased in size compared to the prior. These results were discussed with the neurosurgeon on-call Dr. Beckett, currently at this time there was no recommendation for any surgical intervention. We are to continue to monitoring the patient for any mental status/neurological changes. All other imaging studies did not show any signs of any acute fractures. There were signs of metastatic lesions of the spine however these are already known to the patient secondary to his history of metastatic prostate cancer. Please see imaging studies for further details. Will hold ASA for now. -We will continue the patient on fall precautions. Keep the bed alarm on. I did reiterate to the patient that if he does need to use the bathroom to call for assistance that he can use the bedpan. Greater than 40 minutes of critical care time was spent on the care and management of this patient. LUNA CURRY Nov 26, 2016 04:39
[2016-11-26] MEDS: PANTOPRAZOLE 40 MG INJ IV SCH (06:42)
[2016-11-26 06:53] LABS: BASOPHILS % 0.6 % (0.0-2.0); EOSINOPHILS # 0.1 10^3/ul (0.0-0.5); EOSINOPHILS % 0.8 % (0.0-7.0); HEMATOCRIT 32.4 % (42.0-52.0); HEMOGLOBIN 9.8 g/dl (14.0-18.0); LYMPHOCYTES # 0.7 10^3/ul (0.8-2.9); LYMPHOCYTES % 9.2 % (15.0-51.0); MEAN CORPUSCULAR HEMOGLOBIN 26.1 pg (29.0-33.0); MEAN CORPUSCULAR HGB CONC 30.2 g/dl (32.0-37.0); MEAN CORPUSCULAR VOLUME 86.4 fl (82.0-101.0); MEAN PLATELET VOLUME 9.7 fl (7.4-10.4); MONOCYTE # 0.4 10^3/ul (0.3-0.9); MONOCYTES % 5.3 % (0.0-11.0); NEUTROPHILS % 83.4 % (39.0-77.0); PLATELET COUNT 193 10^3/UL (140-415); RED BLOOD COUNT 3.75 10^6/ul (4.70-6.10); RED CELL DISTRIBUTION WIDTH 17.1 % (11.5-14.5); WHITE BLOOD COUNT 7.2 10^3/ul (4.8-10.8)
[2016-11-26 07:26] LABS: ALBUMIN 2.9 g/dl (3.3-4.9); ALBUMIN/GLOBULIN RATIO 0.85; CALCIUM 8.8 mg/dl (8.4-10.2); CREATININE 7.11 mg/dl (0.61-1.24); POTASSIUM 3.3 mmol/L (3.5-5.1); TOTAL PROTEIN 6.3 g/dl (6.1-8.1)
[2016-11-26] MEDS: predniSONE 5 MG TAB PO SCH ×2 (08:51→21:15)
[2016-11-26] MEDS: LEVOTHYROXINE 50 MCG TAB PO SCH (08:51)
[2016-11-26] MEDS: SEVELAMER CARBONATE 0.8 GM PKT PO SCH ×3 (08:51→17:32)
[2016-11-26] MEDS: PIPER-TAZO 2.25 GM (PMX) 50 ML IVPB SCH ×2 (08:52→21:14)
[2016-11-26] MEDS: MULTIVIT/CA CARB/B CMPLX/FA TAB PO SCH (08:52)
[2016-11-26] MEDS: METOPROLOL 50 MG TAB PO SCH ×2 (09:00→21:14)
[2016-11-26] MEDS: NIFEdipine (XL) 30 MG TAB PO SCH ×2 (09:00→21:15)
--- NOTE | 2016-11-26 12:40 | PN ---
Date/Time of Note Date/Time of Note DATE: 11/26/16 TIME: 12:40 Assessment/Plan VTE Prophylaxis VTE Prophylaxis Intervention: SCD's Lines/Catheters IV [facility]ter [facility]from [facility]): Saline Lock Urinary Cath still in place: No Assessment/Plan Assessment/Plan Paroxysmal atrial fibrillation, currently sinus rhythm Preserved ejection fraction End-stage renal disease on hemodialysis Hypertension Colitis SIRS -No further atrial fibrillation seen on telemetry. In discussion with family yesterday, patient with history of paroxysmal atrial fibrillation but has been off anticoagulation secondary to bleeding issues. He is currently in sinus rhythm. I will continue beta-hector, if recurrence, would consider amiodarone. Fluid management via hemodialysis as per our nephrology colleagues. Continue telemetry monitoring. Subjective 24 Hr Interval Summary Free Text/Dictation the patient s/p fall but prboably no sycnope Exam/Review of Systems Vital Signs Vitals Vital Signs Date Time Temp Pulse Resp B/P Pulse Ox O2 Delivery O2 Flow Rate FiO2 11/26/16 12:12 70 11/26/16 11:41 98.7 17 115/47 100 11/26/16 08:00 Nasal Cannula 2.0 Intake and Output 11/25/16 11/25/16 11/26/16 15:00 23:00 07:00 Intake Total 200 ml 50 ml 200 ml Balance 200 ml 50 ml 200 ml Results Result Diagram: 11/26/16 0611 11/26/16 0611 Results 24 hrs Laboratory Tests Test 11/25/16 18:43 11/25/16 19:22 11/26/16 00:42 11/26/16 04:14 Bedside Glucose 127 133 Hemoglobin 9.5 L 9.7 L Hematocrit 32.1 L 32.6 L Test 11/26/16 06:11 White Blood Count 7.2 # Red Blood Count 3.75 L Hemoglobin 9.8 L Hematocrit 32.4 L Mean Corpuscular Volume 86.4 Mean Corpuscular Hemoglobin 26.1 L Mean Corpuscular Hemoglobin Concent 30.2 L Red Cell Distribution Width 17.1 H Platelet Count 193 Mean Platelet Volume 9.7 Neutrophils % 83.4 H Lymphocytes % 9.2 L Monocytes % 5.3 Eosinophils % 0.8 Basophils % 0.6 Nucleated Red Blood Cells % 0.0 Neutrophils # 6.0 Lymphocytes # 0.7 L Monocytes # 0.4 Eosinophils # 0.1 Basophils # 0.0 Nucleated Red Blood Cells # 0.0 Sodium Level 143 Potassium Level 3.3 L Chloride Level 104 Carbon Dioxide Level 21 Anion Gap 21 H Blood Urea Nitrogen 37 H Creatinine 7.11 H Glucose Level 132 Calcium Level 8.8 Phosphorus Level 7.8 H Magnesium Level 2.9 H Total Bilirubin 0.0 L Direct Bilirubin 0.00 Indirect Bilirubin 0.0 Aspartate Amino Transf (AST/SGOT) 18 Alanine Aminotransferase (ALT/SGPT) 23 Alkaline Phosphatase 27 L Total Protein 6.3 Albumin 2.9 L Globulin 3.40 H Albumin/Globulin Ratio 0.85 Amylase Level 88 Lipase 432 H Medications Medications Current Medications Ondansetron HCl (Zofran Inj) 4 mg Q6H PRN IV NAUSEA AND/OR VOMITING; Start at 02:00 Acetaminophen (Tylenol Tab) 650 mg Q6H PRN PO PAIN LEVEL 1-3 OR FEVER Last administered on 11/24/16 11:38; Admin Dose 650 MG; Start 11/23/16 at 02:00 Morphine Sulfate (morphine) 2 mg Q4H PRN IV PAIN LEVEL 7-10 Last administered on 11/26/16 04:51; Admin Dose 2 MG; Start 11/23/16 at 02:00 Pantoprazole (Protonix Iv) 40 mg DAILY@06 IV Last administered on 11/26/16 06 :42; Admin Dose 40 MG; Start 11/23/16 at 06:00 Hydralazine HCl (Apresoline) 10 mg Q4H PRN IV ELEVATED SYSTOLIC BP Last administered on 11/23/16 01:49; Admin Dose 10 MG; Start 11/23/16 at 02:00 Hydralazine HCl 20 mg 20 mg Q6H PRN IV ELEVATED SYSTOLIC BP Last administered on 11/26/16 00:53; Admin Dose 20 MG; Start 11/23/16 at 02:00 Piperacillin Sod/ Tazobactam Sod (Zosyn 2.25gm/ 50ml (Pmx)) 50 ml @ 100 mls/hr Q12 IVPB Last administered on 11/26/16 08:52; Admin Dose 100 MLS/HR; Start 11/23/16 at 02:00 Metoprolol Tartrate (Lopressor) 50 mg BID PO Last administered on 11/25/16 21 :45; Admin Dose 50 MG; Start 11/23/16 at 09:00 Multivit/Ca Carb/ B Cmplx/FA/Prenat (Darcy-Jean-Pierre) 1 tab DAILY PO Last administered on 11/26/16 08:52; Admin Dose 1 TAB; Start 11/23/16 at 09:00 Prednisone (Prednisone) 5 mg BID PO Last administered on 11/26/16 08:51; Admin Dose 5 MG; Start 11/23/16 at 09:00 Zolpidem Tartrate (Ambien) 5 mg HS PRN PO INSOMNIA Last administered on 22:32; Admin Dose 5 MG; Start 11/23/16 at 22:30 Epoetin Vishal (Epogen (Esrd)) 8,000 units TuThSa@17 SC Last administered on 16:32; Admin Dose 8,000 UNITS; Start 11/24/16 at 17:00 Nifedipine (Procardia Xl) 30 mg BID PO Last administered on 11/25/16 21:45; Admin Dose 30 MG; Start 11/24/16 at 21:00 MARCK MARIE MD Nov 26, 2016 12:40
[2016-11-26 13:55] LABS: HEMATOCRIT 34.4 % (42.0-52.0); HEMOGLOBIN 10.7 g/dl (14.0-18.0)
--- NOTE | 2016-11-26 14:53 | CONS ---
Date/Time of Note Date/Time of Note DATE: 11/26/16 TIME: 14:45 Assessment/Plan Assessment/Plan Chief Complaint/Hosp Course Impression: 1. Sepsis 2. Abdominal pain. 3. MRCP 11-24-16 showing irregular intraluminal filling defects within the common bile duct, which is nondilated with moderate to severe intrahepatic biliary ductal dilatation with areas of alternating stricturing and dilatation and scattered intraluminal filling defects throughout the intrahepatic ducts ( differential considerations include recurrent pyogenic cholangiohepatitis and primary sclerosing cholangitis). 3. EGD 11-25-16 showed MW tear and gastritis 4. Colonoscopy 11-25-16 showing large sigmoid polyps s/p tattoo the proximal and distal margin. 5. Anemia: likely secondary to chronic disease and large sigmoid polyps that was slowly oozing of blood. 6. End stage renal disease on hemodialysis. Continue hemodialysis as per nephrology. 7. Paroxysmal atrial fibrillation. Recommendations: 1. continue protonix bid 2. f/u path results 3. surgical consult for consideration of left hemicolectomy to remove the large sigmoid polyps 4. monitor h/h and transfuse PRN hgb less than 8 5. advance of diet per surgery eval in case they want to do surgery to remove the polyps Problems: Consultation Date/Type/Reason Admit Date/Time Nov 22, 2016 at 20:45 Initial Consult Date Type of Consultation: GI 24 HR Interval Summary Free Text/Dictation feels hungry, fell earlier today, h/h stable. Discussed with nurse and there are no blood in stool. Exam/Review of Systems Vital Signs Vitals Vital Signs Date Time Temp Pulse Resp B/P Pulse Ox O2 Delivery O2 Flow Rate FiO2 11/26/16 12:12 70 11/26/16 11:41 98.7 17 115/47 100 11/26/16 08:00 Nasal Cannula 2.0 Intake and Output 11/25/16 11/25/16 11/26/16 15:00 23:00 07:00 Intake Total 200 ml 50 ml 700 ml Output Total 3000 ml Balance 200 ml 50 ml -2300 ml Exam Constitutional: alert, frail, oriented Psych: nl mood/affect, no complaints Head: atraumatic, normocephalic Eyes: EOMI, nl conjunctiva, nl lids, nl sclera ENMT: mucosa pink and moist, nl external ears & nose, nl lips & teeth, nl nasal mucosa & septum Neck: non-tender, supple Respiratory: clear to auscultation, normal air movement Cardiovascular: nl pulses, regular rate and rhythm Gastrointestinal: bowel sounds, non-tender, soft Results Result Diagram: 11/26/16 1345 11/26/16 0611 Results 24 hrs Laboratory Tests Test 11/25/16 18:43 11/25/16 19:22 11/26/16 00:42 11/26/16 04:14 Bedside Glucose 127 133 Hemoglobin 9.5 L 9.7 L Hematocrit 32.1 L 32.6 L Test 11/26/16 06:11 11/26/16 13:45 White Blood Count 7.2 # Red Blood Count 3.75 L Hemoglobin 9.8 L 10.7 L Hematocrit 32.4 L 34.4 L Mean Corpuscular Volume 86.4 Mean Corpuscular Hemoglobin 26.1 L Mean Corpuscular Hemoglobin Concent 30.2 L Red Cell Distribution Width 17.1 H Platelet Count 193 Mean Platelet Volume 9.7 Neutrophils % 83.4 H Lymphocytes % 9.2 L Monocytes % 5.3 Eosinophils % 0.8 Basophils % 0.6 Nucleated Red Blood Cells % 0.0 Neutrophils # 6.0 Lymphocytes # 0.7 L Monocytes # 0.4 Eosinophils # 0.1 Basophils # 0.0 Nucleated Red Blood Cells # 0.0 Sodium Level 143 Potassium Level 3.3 L Chloride Level 104 Carbon Dioxide Level 21 Anion Gap 21 H Blood Urea Nitrogen 37 H Creatinine 7.11 H Glucose Level 132 Calcium Level 8.8 Phosphorus Level 7.8 H Magnesium Level 2.9 H Total Bilirubin 0.0 L Direct Bilirubin 0.00 Indirect Bilirubin 0.0 Aspartate Amino Transf (AST/SGOT) 18 Alanine Aminotransferase (ALT/SGPT) 23 Alkaline Phosphatase 27 L Total Protein 6.3 Albumin 2.9 L Globulin 3.40 H Albumin/Globulin Ratio 0.85 Amylase Level 88 Lipase 432 H Medications Medications Current Medications Ondansetron HCl (Zofran Inj) 4 mg Q6H PRN IV NAUSEA AND/OR VOMITING; Start at 02:00 Acetaminophen (Tylenol Tab) 650 mg Q6H PRN PO PAIN LEVEL 1-3 OR FEVER Last administered on 11/24/16t 11:38; Admin Dose 650 MG; Start 11/23/16 at 02:00 Morphine Sulfate (morphine) 2 mg Q4H PRN IV PAIN LEVEL 7-10 Last administered on 11/26/16 04:51; Admin Dose 2 MG; Start 11/23/16 at 02:00 Pantoprazole (Protonix Iv) 40 mg DAILY@06 IV Last administered on 11/26/16 06 :42; Admin Dose 40 MG; Start 11/23/16 at 06:00 Hydralazine HCl (Apresoline) 10 mg Q4H PRN IV ELEVATED SYSTOLIC BP Last administered on 11/23/16 01:49; Admin Dose 10 MG; Start 11/23/16 at 02:00 Hydralazine HCl 20 mg 20 mg Q6H PRN IV ELEVATED SYSTOLIC BP Last administered on 11/26/16 00:53; Admin Dose 20 MG; Start 11/23/16 at 02:00 Piperacillin Sod/ Tazobactam Sod (Zosyn 2.25gm/ 50ml (Pmx)) 50 ml @ 100 mls/hr Q12 IVPB Last administered on 11/26/16 08:52; Admin Dose 100 MLS/HR; Start 11/23/16 at 02:00 Metoprolol Tartrate (Lopressor) 50 mg BID PO Last administered on 11/25/16 21 :45; Admin Dose 50 MG; Start 11/23/16 at 09:00 Multivit/Ca Carb/ B Cmplx/FA/Prenat (Darcy-Jean-Pierre) 1 tab DAILY PO Last administered on 11/26/16 08:52; Admin Dose 1 TAB; Start 11/23/16 at 09:00 Prednisone (Prednisone) 5 mg BID PO Last administered on 11/26/16 08:51; Admin Dose 5 MG; Start 11/23/16 at 09:00 Zolpidem Tartrate (Ambien) 5 mg HS PRN PO INSOMNIA Last administered on 22:32; Admin Dose 5 MG; Start 11/23/16 at 22:30 Epoetin Vishal (Epogen (Esrd)) 8,000 units TuThSa@17 SC Last administered on 16:32; Admin Dose 8,000 UNITS; Start 11/24/16 at 17:00 Nifedipine (Procardia Xl) 30 mg BID PO Last administered on 11/25/16 21:45; Admin Dose 30 MG; Start 11/24/16 at 21:00 MIRIAM WESTBROOK MD Nov 26, 2016 14:53
--- NOTE | 2016-11-26 14:54 | RADRPT ---
PROCEDURE: CT Brain without contrast. CLINICAL INDICATION: Trauma. Headache. TECHNIQUE: A CT of the brain without contrast was performed utilizing axial sections from the skul l base through the vertex. The patient was scanned without intravenous contrast enhancement. Sagitta l and coronal reformatted images were obtained using the data from the axial images. Total exam DLP is 720.23 mGy-cm. CTDIvol is 43.48 mGy. One or more of the following dose reduction techniques we re used: Automated exposure control, adjustment of the mA and/or kV according to patient size, use o f iterative reconstruction technique. COMPARISON: Noncontrast CT scan of the brain done earlier the same day. FINDINGS: There is normal yang-white matter differentiation. There is enlargement of the ventricles and subarachnoid spaces consistent with atrophy. There is decreased attenuation of the periventricular white matter consistent with microangiopathic ischemic change. As seen previously, there are bilateral frontal subdural low attenuation fluid collections consisten t with atrophy or subdural hygromas, unchanged. There is a small left frontal acute subdural hematom a measuring 0.2 cm in thickness and 1.3 cm in length, unchanged. There is no other acute intracrania l hemorrhage or space-occupying lesion. There is no mass effect. There is no midline shift. The basa l cisterns are intact. There are vascular calcifications consistent with atherosclerosis. There is no skull fracture or lytic lesion. IMPRESSION: 1. Atrophy. 2. Microangiopathic ischemic change. 3. Atherosclerosis. 4. Bilateral frontal subdural CSF density fluid consistent with atrophy or subdural hygromas, uncha nged. 5. Small left frontal acute subdural hematoma measuring 0.2 x 1.3 cm, unchanged with no mass effect . Follow-up in 24 hours advised unless the patient's condition changes. 6. Otherwise unremarkable noncontrast CT scan of the brain. RPTAT: QQ .Vasquez Hector MD, MD Date Time Electronically viewed and signed by .Vasquez Hector MD, on 11/26/2016 14:54 .R/
--- NOTE | 2016-11-26 14:55 | PN ---
Date/Time of Note Date/Time of Note DATE: 11/26/16 TIME: 14:52 Assessment/Plan VTE Prophylaxis VTE Prophylaxis Intervention: contraindicated Lines/Catheters IV Catheter Type (from [facility]): Saline Lock Urinary Cath still in place: No Assessment/Plan Chief Complaint/Hosp Course 1. Sepsis, secondary to underlying colitis. Other etiologies being ruled out. Continue antimicrobials. No evidence of any septic shock. Pancultures negative so far. 2. Abdominal pain. CT showing findings consistent with colitis which may be infectious or inflammatory in nature. The CT also showed distended gallbladder with mild thickening and pericholecystic edema with moderate biliary dilatation. MRCP showing irregular intraluminal filling defects within the common bile duct, which is nondilated with moderate to severe intrahepatic biliary ductal dilatation with areas of alternating stricturing and dilatation and scattered intraluminal filling defects throughout the intrahepatic ducts ( differential considerations include recurrent pyogenic cholangiohepatitis and primary sclerosing cholangitis). Continue antimicrobials. Being followed by gastroenterology. 3. Two large sigmoid polyps, about 4-5 cm in size, oozing of blood. S/P biopsy. Resection not done because of high risk of bleeding. Pathology pending. General surgery on board for possible further bleeding. 4. End stage renal disease on hemodialysis. Continue hemodialysis as per nephrology. 5. Paroxysmal atrial fibrillation. The patient currently in sinus rhythm. The patient being followed by cardiology. Continue beta-blockers. 6. Hypothyroidism. Continue Synthroid. 7. Essential hypertension. Continue antihypertensives. 8. Anemia of chronic kidney disease. Epogen as per nephrology. 9. Dyslipidemia. Low-cholesterol diet. 10. History of prostate cancer. Currently on prednisone as per outpatient oncologist. 11. S/P unwitnessed fall on 11/26/2016. CT brain showed bilateral, predominantly chronic subdural collections with some minimal acute component on the left. Being followed by neurosurgery. Monitor mental status closely. 12. Fluids, electrolytes, and nutrition. Renal, low-cholesterol diet. Currently NPO for colonoscopy. 13. DVT prophylaxis. B/L SCDs. 14. Plan. Continue antimicrobials. Await further recommendations from consultants. Case discussed with Dr. Limon. Plan of care was explained to the patient's family who was at the bedside. Problems: Subjective 24 Hr Interval Summary Free Text/Dictation Denies any headache. Complains of being tired. Exam/Review of Systems Vital Signs Vitals Vital Signs Date Time Temp Pulse Resp B/P Pulse Ox O2 Delivery O2 Flow Rate FiO2 11/26/16 12:12 70 11/26/16 11:41 98.7 17 115/47 100 11/26/16 08:00 Nasal Cannula 2.0 Intake and Output 11/25/16 11/25/16 11/26/16 15:00 23:00 07:00 Intake Total 200 ml 50 ml 700 ml Output Total 3000 ml Balance 200 ml 50 ml -2300 ml Exam General: Adequately build 76 year-old male lying in bed in no apparent distress. HEENT: Normocephalic, atraumatic. Eyes: Anicteric sclerae, conjunctivae clear. ENT: Nasal septum midline, oral mucosa moist. Neck supple, no JVD noticed. Respiratory: Bilaterally clear breath sounds. No use of accessory muscles of respiration. No adventitious breath sounds. Cardiovascular: S1, S2 heard. No murmurs or gallops. Abdomen: Soft, nontender, and nondistended. Bowel sounds positive in all 4 quadrants. Genitourinary: Deferred. Extremities: No cyanosis, no clubbing, no edema. Peripheral pulses palpable. Neurologic: Cranial nerves II through XII grossly intact. The patient is awake, alert, and oriented. Skin: Normal skin turgor. No skin rashes. Results Result Diagram: 11/26/16 1345 11/26/16 0611 Results 24 hrs Laboratory Tests Test 11/25/16 18:43 11/25/16 19:22 11/26/16 00:42 11/26/16 04:14 Bedside Glucose 127 133 Hemoglobin 9.5 L 9.7 L Hematocrit 32.1 L 32.6 L Test 11/26/16 06:11 11/26/16 13:45 White Blood Count 7.2 # Red Blood Count 3.75 L Hemoglobin 9.8 L 10.7 L Hematocrit 32.4 L 34.4 L Mean Corpuscular Volume 86.4 Mean Corpuscular Hemoglobin 26.1 L Mean Corpuscular Hemoglobin Concent 30.2 L Red Cell Distribution Width 17.1 H Platelet Count 193 Mean Platelet Volume 9.7 Neutrophils % 83.4 H Lymphocytes % 9.2 L Monocytes % 5.3 Eosinophils % 0.8 Basophils % 0.6 Nucleated Red Blood Cells % 0.0 Neutrophils # 6.0 Lymphocytes # 0.7 L Monocytes # 0.4 Eosinophils # 0.1 Basophils # 0.0 Nucleated Red Blood Cells # 0.0 Sodium Level 143 Potassium Level 3.3 L Chloride Level 104 Carbon Dioxide Level 21 Anion Gap 21 H Blood Urea Nitrogen 37 H Creatinine 7.11 H Glucose Level 132 Calcium Level 8.8 Phosphorus Level 7.8 H Magnesium Level 2.9 H Total Bilirubin 0.0 L Direct Bilirubin 0.00 Indirect Bilirubin 0.0 Aspartate Amino Transf (AST/SGOT) 18 Alanine Aminotransferase (ALT/SGPT) 23 Alkaline Phosphatase 27 L Total Protein 6.3 Albumin 2.9 L Globulin 3.40 H Albumin/Globulin Ratio 0.85 Amylase Level 88 Lipase 432 H Medications Medications Current Medications Ondansetron HCl (Zofran Inj) 4 mg Q6H PRN IV NAUSEA AND/OR VOMITING; Start at 02:00 Acetaminophen (Tylenol Tab) 650 mg Q6H PRN PO PAIN LEVEL 1-3 OR FEVER Last administered on 11/24/16 11:38; Admin Dose 650 MG; Start 11/23/16 at 02:00 Morphine Sulfate (morphine) 2 mg Q4H PRN IV PAIN LEVEL 7-10 Last administered on 11/26/16 04:51; Admin Dose 2 MG; Start 11/23/16 at 02:00 Pantoprazole (Protonix Iv) 40 mg DAILY@06 IV Last administered on 11/26/16 06 :42; Admin Dose 40 MG; Start 11/23/16 at 06:00 Hydralazine HCl (Apresoline) 10 mg Q4H PRN IV ELEVATED SYSTOLIC BP Last administered on 11/23/16 01:49; Admin Dose 10 MG; Start 11/23/16 at 02:00 Hydralazine HCl 20 mg 20 mg Q6H PRN IV ELEVATED SYSTOLIC BP Last administered on 11/26/16 00:53; Admin Dose 20 MG; Start 11/23/16 at 02:00 Piperacillin Sod/ Tazobactam Sod (Zosyn 2.25gm/ 50ml (Pmx)) 50 ml @ 100 mls/hr Q12 IVPB Last administered on 11/26/16 08:52; Admin Dose 100 MLS/HR; Start 11/23/16 at 02:00 Metoprolol Tartrate (Lopressor) 50 mg BID PO Last administered on 11/25/16 21 :45; Admin Dose 50 MG; Start 11/23/16 at 09:00 Multivit/Ca Carb/ B Cmplx/FA/Prenat (Darcy-Jean-Pierre) 1 tab DAILY PO Last administered on 11/26/16 08:52; Admin Dose 1 TAB; Start 11/23/16 at 09:00 Prednisone (Prednisone) 5 mg BID PO Last administered on 11/26/16 08:51; Admin Dose 5 MG; Start 11/23/16 at 09:00 Zolpidem Tartrate (Ambien) 5 mg HS PRN PO INSOMNIA Last administered on 22:32; Admin Dose 5 MG; Start 11/23/16 at 22:30 Epoetin Vishal (Epogen (Esrd)) 8,000 units TuThSa@17 SC Last administered on 16:32; Admin Dose 8,000 UNITS; Start 11/24/16 at 17:00 Nifedipine (Procardia Xl) 30 mg BID PO Last administered on 11/25/16 21:45; Admin Dose 30 MG; Start 11/24/16 at 21:00 CARLIE BREWER NP Nov 26, 2016 14:55
[2016-11-26] MEDS: EPOETIN 4000 UNITS/1 ML INJ (ESRD) SC SCH (17:29)
--- NOTE | 2016-11-26 23:26 | CONS ---
Date/Time of Note Date/Time of Note DATE: 11/26/16 TIME: 23:26 Assessment/Plan Assessment/Plan Additional Assessment/Plan Date of consultation: 11/26/2016 Requesting physician: Dr. Xiao Consulting service: Neurosurgery This is a 76-year-old male with past medical history significant for diabetes, hypertension, end-stage renal disease on hemodialysis, coronary artery disease, history of prostate cancer, who was admitted several days ago to [facility] for abdominal pain and bloody stool. The patient most recently was admitted to [facility] for pancreatitis possibly secondary to gallstone and discharged several days prior to being admitted to [facility]. While receiving medical treatment for the above, the patient had a ground-level fall earlier today when trying to get out of bed. Subsequently the patient received a CT of the head that showed a possible subdural hematoma and neurosurgery being consulted. According to the hospitalist the patient is currently at his baseline neurologic status. Past medical history: Please see above plus atrial fibrillation Past surgical history: Left AV fistula, appendectomy, cardiac stent placement Social history: According to the records the patient is not a current user of alcohol, tobacco or illicit or recreational drugs Allergies: No known drug allergies Physical examination: The patient is seen at bedside. He is lying comfortably in bed. He looks thin and somewhat emaciated. He is readily arousable to voice. He is alert and oriented to person and place. He moves his upper and lower extremities with a strength of at least 4 minus out of 5 bilateral upper and lower extremities. Sensation to light touch seems to be preserved bilateral upper and lower extremes these. Deep tendon reflexes are 1+ bilateral upper and lower activities. Gait testing has been deferred per patient request. There is no obvious sign of a trauma to the patient's scalp. Imaging: Patient has received an initial and a follow-up CT of the head without contrast today that shows some cerebral atrophy and hypodensities in the extra- axial space bilaterally mostly in the frontal regions that could be subdural hygromas versus small chronic subdural hematomas without significant mass effect or midline shift. There is a sliver of the left-sided hyperdensity that could be evidence of a small acute component of subdural hematoma but this is stable and unchanged on the follow-up head CT. Assessment/plan: I have indicated to the patient's hospitalist that given the above findings and the stable follow-up head CT, no acute neurosurgical intervention is indicated as long as the patient's neurologic status remained stable. The patient can participate in physical therapy and continue his medical management for treatment of the abdominal pain and pancreatitis. Anticoagulation and antiplatelet agent treatment should be withheld for the next 3-4 weeks. The patient should receive a follow-up head CT without contrast in 3-4 weeks. DAXA FERNÁNDEZ MD Nov 26, 2016 23:26
[2016-11-27] VITALS (14 sets, daily range): BP systolic 146–210; BP diastolic 60–85; PULSE 51–63; RESP 17–20
--- NOTE | 2016-11-27 00:22 | CONS ---
Date/Time of Note Date/Time of Note DATE: 11/27/16 TIME: 00:21 Assessment/Plan Assessment/Plan Chief Complaint/Hosp Course GI bleeding Problems: (1) Colon polyps Status: Acute Qualifiers: (2) Colitis Status: Acute (3) Lower GI bleed Status: Acute Additional Assessment/Plan Continue current care CBC reassuring for no further bleeding Follow up pathology: if indicative of malignancy, will require resection. If benign, then may require careful follow up given size and history of turning into a large bowel obstruction. 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 Colonoscopy showed two large polyps with hemorrhage that was endoscopically controlled. Surgery consult was requested due to the patient's bleeding. Pt reports that now the bleeding has subsided since the procedure. He is currently NPO and reports no further BRBPR with BMs. Constitutional: improved Eyes: no complaints ENT: no complaints Respiratory: shortness of breath Cardiovascular: no complaints Gastrointestinal: blood, decreased appetite, diarrhea, flatus, pain, No constipation, No nausea, No vomiting Genitourinary: no complaints, other (ESRD) Musculoskeletal: no complaints Skin: no complaints Endocrine: dry skin Psychological: nl mood/affect, no complaints Past Medical History Medical History: cancer (prostate), diabetes, hypertension Past Surgical History Past Surgical Hx: other (Dialysis fistula) Social History Alcohol Use: none Smoking Status: Former smoker Drug Use: none Exam/Review of Systems Vital Signs Vitals Vital Signs Date Time Temp Pulse Resp B/P Pulse Ox O2 Delivery O2 Flow Rate FiO2 11/27/16 00:07 98.0 66 18 148/66 98 11/26/16 20:00 Nasal Cannula 2.0 Intake and Output 11/26/16 11/26/16 11/27/16 15:00 23:00 07:00 Intake Total 50 ml 100 ml Balance 50 ml 100 ml Exam Constitutional: alert, oriented, well developed Psych: nl mood/affect, no complaints Head: atraumatic, normocephalic Eyes: EOMI, nl conjunctiva, nl lids ENMT: nl external ears & nose, nl lips & teeth, nl nasal mucosa & septum Neck: non-tender, supple Respiratory: clear to auscultation, congested cough, normal air movement Cardiovascular: regular rate and rhythm Gastrointestinal: nl liver, spleen, non-tender, soft Musculoskeletal: nl extremities to inspection, nl gait and stance Extremities: normal pulses Neurological: [employer] II-XII intact, nl mental status Skin: nl turgor, rash or lesions Lymph: nl lymph nodes Results Result Diagram: 11/26/16 1345 11/26/16 0611 Results 24 hrs Laboratory Tests Test 11/26/16 00:42 11/26/16 04:14 11/26/16 06:11 11/26/16 13:45 Hemoglobin 9.7 L 9.8 L 10.7 L Hematocrit 32.6 L 32.4 L 34.4 L Bedside Glucose 133 White Blood Count 7.2 # Red Blood Count 3.75 L Mean Corpuscular Volume 86.4 Mean Corpuscular Hemoglobin 26.1 L Mean Corpuscular Hemoglobin Concent 30.2 L Red Cell Distribution Width 17.1 H Platelet Count 193 Mean Platelet Volume 9.7 Neutrophils % 83.4 H Lymphocytes % 9.2 L Monocytes % 5.3 Eosinophils % 0.8 Basophils % 0.6 Nucleated Red Blood Cells % 0.0 Neutrophils # 6.0 Lymphocytes # 0.7 L Monocytes # 0.4 Eosinophils # 0.1 Basophils # 0.0 Nucleated Red Blood Cells # 0.0 Sodium Level 143 Potassium Level 3.3 L Chloride Level 104 Carbon Dioxide Level 21 Anion Gap 21 H Blood Urea Nitrogen 37 H Creatinine 7.11 H Glucose Level 132 Calcium Level 8.8 Phosphorus Level 7.8 H Magnesium Level 2.9 H Total Bilirubin 0.0 L Direct Bilirubin 0.00 Indirect Bilirubin 0.0 Aspartate Amino Transf (AST/SGOT) 18 Alanine Aminotransferase (ALT/SGPT) 23 Alkaline Phosphatase 27 L Total Protein 6.3 Albumin 2.9 L Globulin 3.40 H Albumin/Globulin Ratio 0.85 Amylase Level 88 Lipase 432 H Medications Medications Current Medications Ondansetron HCl (Zofran Inj) 4 mg Q6H PRN IV NAUSEA AND/OR VOMITING; Start at 02:00 Acetaminophen (Tylenol Tab) 650 mg Q6H PRN PO PAIN LEVEL 1-3 OR FEVER Last administered on 11/24/16t 11:38; Admin Dose 650 MG; Start 11/23/16 at 02:00 Morphine Sulfate (morphine) 2 mg Q4H PRN IV PAIN LEVEL 7-10 Last administered on 11/26/16 04:51; Admin Dose 2 MG; Start 11/23/16 at 02:00 Pantoprazole (Protonix Iv) 40 mg DAILY@06 IV Last administered on 11/26/16 06 :42; Admin Dose 40 MG; Start 11/23/16 at 06:00 Hydralazine HCl (Apresoline) 10 mg Q4H PRN IV ELEVATED SYSTOLIC BP Last administered on 11/23/16 01:49; Admin Dose 10 MG; Start 11/23/16 at 02:00 Hydralazine HCl 20 mg 20 mg Q6H PRN IV ELEVATED SYSTOLIC BP Last administered on 11/26/16 00:53; Admin Dose 20 MG; Start 11/23/16 at 02:00 Piperacillin Sod/ Tazobactam Sod (Zosyn 2.25gm/ 50ml (Pmx)) 50 ml @ 100 mls/hr Q12 IVPB Last administered on 11/26/16 21:14; Admin Dose 100 MLS/HR; Start 11/23/16 at 02:00 Metoprolol Tartrate (Lopressor) 50 mg BID PO Last administered on 11/26/16 21 :14; Admin Dose 50 MG; Start 11/23/16 at 09:00 Multivit/Ca Carb/ B Cmplx/FA/Prenat (Darcy-Jean-Pierre) 1 tab DAILY PO Last administered on 11/26/16 08:52; Admin Dose 1 TAB; Start 11/23/16 at 09:00 Prednisone (Prednisone) 5 mg BID PO Last administered on 11/26/16 21:15; Admin Dose 5 MG; Start 11/23/16 at 09:00 Zolpidem Tartrate (Ambien) 5 mg HS PRN PO INSOMNIA Last administered on 22:32; Admin Dose 5 MG; Start 11/23/16 at 22:30 Epoetin Vishal (Epogen (Esrd)) 8,000 units TuThSa@17 SC Last administered on 17:29; Admin Dose 8,000 UNITS; Start 11/24/16 at 17:00 Nifedipine (Procardia Xl) 30 mg BID PO Last administered on 10/21/17at 21:15; Admin Dose 30 MG; Start 11/24/16 at 21:00 LOUIE JACK Nov 27, 2016 00:22
--- NOTE | 2016-11-27 00:41 | CONS ---
Date/Time of Note Date/Time of Note DATE: 11/27/16 TIME: 00:31 Consult Date/Type/Reason Admit Date/Time Nov 22, 2016 at 20:45 Initial Consult Date 11/26/16 Type of Consultation: general surgery Reason for Consultation GI bleeding, colon polyp Subjective no GI bleeding in last 24 hours No abdominal pain Objective Vital Signs Date Time Temp Pulse Resp B/P Pulse Ox O2 Delivery O2 Flow Rate FiO2 11/27/16 00:07 98.0 66 18 148/66 98 11/26/16 20:00 Nasal Cannula 2.0 Intake and Output 11/26/16 11/26/16 11/27/16 15:00 23:00 07:00 Intake Total 50 ml 100 ml Balance 50 ml 100 ml Exam a/o nad abd soft nt nd; no mcburney's point tenderness, no Asif's sign present or RUQ pain present no jaundice Results/Medications Result Diagram: 11/26/16 1345 11/26/16 0611 Results 24 hrs Laboratory Tests Test 11/26/16 00:42 11/26/16 04:14 11/26/16 06:11 11/26/16 13:45 Hemoglobin 9.7 L 9.8 L 10.7 L Hematocrit 32.6 L 32.4 L 34.4 L Bedside Glucose 133 White Blood Count 7.2 # Red Blood Count 3.75 L Mean Corpuscular Volume 86.4 Mean Corpuscular Hemoglobin 26.1 L Mean Corpuscular Hemoglobin Concent 30.2 L Red Cell Distribution Width 17.1 H Platelet Count 193 Mean Platelet Volume 9.7 Neutrophils % 83.4 H Lymphocytes % 9.2 L Monocytes % 5.3 Eosinophils % 0.8 Basophils % 0.6 Nucleated Red Blood Cells % 0.0 Neutrophils # 6.0 Lymphocytes # 0.7 L Monocytes # 0.4 Eosinophils # 0.1 Basophils # 0.0 Nucleated Red Blood Cells # 0.0 Sodium Level 143 Potassium Level 3.3 L Chloride Level 104 Carbon Dioxide Level 21 Anion Gap 21 H Blood Urea Nitrogen 37 H Creatinine 7.11 H Glucose Level 132 Calcium Level 8.8 Phosphorus Level 7.8 H Magnesium Level 2.9 H Total Bilirubin 0.0 L Direct Bilirubin 0.00 Indirect Bilirubin 0.0 Aspartate Amino Transf (AST/SGOT) 18 Alanine Aminotransferase (ALT/SGPT) 23 Alkaline Phosphatase 27 L Total Protein 6.3 Albumin 2.9 L Globulin 3.40 H Albumin/Globulin Ratio 0.85 Amylase Level 88 Lipase 432 H Medications Current Medications Ondansetron HCl (Zofran Inj) 4 mg Q6H PRN IV NAUSEA AND/OR VOMITING; Start at 02:00 Acetaminophen (Tylenol Tab) 650 mg Q6H PRN PO PAIN LEVEL 1-3 OR FEVER Last administered on 11/24/16 11:38; Admin Dose 650 MG; Start 11/23/16 at 02:00 Morphine Sulfate (morphine) 2 mg Q4H PRN IV PAIN LEVEL 7-10 Last administered on 11/26/16 04:51; Admin Dose 2 MG; Start 11/23/16 at 02:00 Pantoprazole (Protonix Iv) 40 mg DAILY@06 IV Last administered on 11/26/16 06 :42; Admin Dose 40 MG; Start 11/23/16 at 06:00 Hydralazine HCl (Apresoline) 10 mg Q4H PRN IV ELEVATED SYSTOLIC BP Last administered on 11/23/16 01:49; Admin Dose 10 MG; Start 11/23/16 at 02:00 Hydralazine HCl 20 mg 20 mg Q6H PRN IV ELEVATED SYSTOLIC BP Last administered on 11/26/16 00:53; Admin Dose 20 MG; Start 11/23/16 at 02:00 Piperacillin Sod/ Tazobactam Sod (Zosyn 2.25gm/ 50ml (Pmx)) 50 ml @ 100 mls/hr Q12 IVPB Last administered on 11/26/16 21:14; Admin Dose 100 MLS/HR; Start 11/23/16 at 02:00 Metoprolol Tartrate (Lopressor) 50 mg BID PO Last administered on 11/26/16 21 :14; Admin Dose 50 MG; Start 11/23/16 at 09:00 Multivit/Ca Carb/ B Cmplx/FA/Prenat (Darcy-Jean-Pierre) 1 tab DAILY PO Last administered on 11/26/16 08:52; Admin Dose 1 TAB; Start 11/23/16 at 09:00 Prednisone (Prednisone) 5 mg BID PO Last administered on 11/26/16 21:15; Admin Dose 5 MG; Start 11/23/16 at 09:00 Zolpidem Tartrate (Ambien) 5 mg HS PRN PO INSOMNIA Last administered on 22:32; Admin Dose 5 MG; Start 11/23/16 at 22:30 Epoetin Vishal (Epogen (Esrd)) 8,000 units TuThSa@17 SC Last administered on 17:29; Admin Dose 8,000 UNITS; Start 11/24/16 at 17:00 Nifedipine (Procardia Xl) 30 mg BID PO Last administered on 11/26/16 21:15; Admin Dose 30 MG; Start 11/24/16 at 21:00 Assessment/Plan Chief Complaint/Hosp Course GI bleeding Problems: (1) Lower GI bleed (2) Colon polyps (3) Colitis (4) Thickening of wall of gallbladder Additional Assessment/Plan GI bleed: from bleeding standpoint, should be able to adv diet as tolerated if OK with GI Colon polyps: F/U pathology from bx; if malignant/premalignant will require colectomy, otherwise careful follow up per GI Colitis: Cont Zosyn GB wall thickening: pt unlikely to have cholecystitis in setting of no RUQ pain , n/v. likely distended GB due to NPO status or poor oral intake. 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 LOUIE JACK Nov 27, 2016 00:41
[2016-11-27] MEDS: PANTOPRAZOLE 40 MG INJ IV SCH (06:05)
[2016-11-27] MEDS: LEVOTHYROXINE 50 MCG TAB PO SCH (06:08)
[2016-11-27] MEDS: SEVELAMER CARBONATE 0.8 GM PKT PO SCH ×3 (07:55→17:43)
[2016-11-27 08:04] LABS: BASOPHILS % 0.8 % (0.0-2.0); EOSINOPHILS % 0.4 % (0.0-7.0); HEMATOCRIT 31.2 % (42.0-52.0); HEMOGLOBIN 9.4 g/dl (14.0-18.0); LYMPHOCYTES # 0.9 10^3/ul (0.8-2.9); LYMPHOCYTES % 16.6 % (15.0-51.0); MEAN CORPUSCULAR HGB CONC 30.1 g/dl (32.0-37.0); MEAN CORPUSCULAR VOLUME 86.4 fl (82.0-101.0); MEAN PLATELET VOLUME 10.8 fl (7.4-10.4); MONOCYTE # 0.6 10^3/ul (0.3-0.9); MONOCYTES % 10.4 % (0.0-11.0); NEUTROPHIL # 3.8 10^3/ul (1.6-7.5); NEUTROPHILS % 71.2 % (39.0-77.0); PLATELET COUNT 213 10^3/UL (140-415); RED BLOOD COUNT 3.61 10^6/ul (4.70-6.10); RED CELL DISTRIBUTION WIDTH 16.9 % (11.5-14.5); WHITE BLOOD COUNT 5.3 10^3/ul (4.8-10.8)
--- NOTE | 2016-11-27 08:15 | CONS ---
Date/Time of Note Date/Time of Note DATE: 11/27/16 TIME: 08:08 Assessment/Plan Assessment/Plan Chief Complaint/Hosp Course Impression: 1. Sepsis 2. Abdominal pain. 3. MRCP 11-24-16 showing irregular intraluminal filling defects within the common bile duct, which is nondilated with moderate to severe intrahepatic biliary ductal dilatation with areas of alternating stricturing and dilatation and scattered intraluminal filling defects throughout the intrahepatic ducts ( differential considerations include recurrent pyogenic cholangiohepatitis and primary sclerosing cholangitis). 3. EGD 11-25-16 showed MW tear and gastritis 4. Colonoscopy 11-25-16 showing large sigmoid polyps s/p tattoo the proximal and distal margin. 5. Anemia: likely secondary to chronic disease and large sigmoid polyps that was slowly oozing of blood. 6. End stage renal disease on hemodialysis. Continue hemodialysis as per nephrology. 7. Paroxysmal atrial fibrillation. Recommendations: 1. continue protonix bid 2. f/u path results 3. as no plans for surgery, will start patient on diet 4. monitor h/h and transfuse PRN hgb less than 8 5. will discuss with Dr. Guallpa for him to consider ERCP on the biliary duct dilation Problems: Consultation Date/Type/Reason Admit Date/Time Nov 22, 2016 at 20:45 Type of Consultation: GI 24 HR Interval Summary Free Text/Dictation weak, no further hematochezia Exam/Review of Systems Vital Signs Vitals Vital Signs Date Time Temp Pulse Resp B/P Pulse Ox O2 Delivery O2 Flow Rate FiO2 11/27/16 08:03 98.1 65 18 153/75 98 11/26/16 20:00 Nasal Cannula 2.0 Intake and Output 11/26/16 11/26/16 11/27/16 15:00 23:00 07:00 Intake Total 50 ml 150 ml 100 ml Balance 50 ml 150 ml 100 ml Exam Constitutional: alert, frail, oriented Psych: nl mood/affect, no complaints Head: atraumatic, normocephalic Eyes: EOMI, nl conjunctiva, nl lids, nl sclera ENMT: mucosa pink and moist, nl external ears & nose, nl lips & teeth, nl nasal mucosa & septum Neck: non-tender, supple Respiratory: clear to auscultation, normal air movement Cardiovascular: nl pulses, regular rate and rhythm Gastrointestinal: bowel sounds, non-tender, soft Results Result Diagram: 11/26/16 1345 11/26/16 0611 Results 24 hrs Laboratory Tests Test 11/26/16 13:45 11/27/16 07:04 Hemoglobin 10.7 L Pending Hematocrit 34.4 L Pending White Blood Count Pending Red Blood Count Pending Mean Corpuscular Volume Pending Mean Corpuscular Hemoglobin Pending Mean Corpuscular Hemoglobin Concent Pending Red Cell Distribution Width Pending Platelet Count Pending Mean Platelet Volume Pending Medications Medications Current Medications Ondansetron HCl (Zofran Inj) 4 mg Q6H PRN IV NAUSEA AND/OR VOMITING; Start at 02:00 Acetaminophen (Tylenol Tab) 650 mg Q6H PRN PO PAIN LEVEL 1-3 OR FEVER Last administered on 11/24/16 11:38; Admin Dose 650 MG; Start 11/23/16 at 02:00 Morphine Sulfate (morphine) 2 mg Q4H PRN IV PAIN LEVEL 7-10 Last administered on 11/26/16 04:51; Admin Dose 2 MG; Start 11/23/16 at 02:00 Pantoprazole (Protonix Iv) 40 mg DAILY@06 IV Last administered on 11/27/16 06 :05; Admin Dose 40 MG; Start 11/23/16 at 06:00 Hydralazine HCl (Apresoline) 10 mg Q4H PRN IV ELEVATED SYSTOLIC BP Last administered on 11/23/16 01:49; Admin Dose 10 MG; Start 11/23/16 at 02:00 Hydralazine HCl 20 mg 20 mg Q6H PRN IV ELEVATED SYSTOLIC BP Last administered on 11/26/16 00:53; Admin Dose 20 MG; Start 11/23/16 at 02:00 Piperacillin Sod/ Tazobactam Sod (Zosyn 2.25gm/ 50ml (Pmx)) 50 ml @ 100 mls/hr Q12 IVPB Last administered on 11/26/16 21:14; Admin Dose 100 MLS/HR; Start 11/23/16 at 02:00 Metoprolol Tartrate (Lopressor) 50 mg BID PO Last administered on 11/26/16 21 :14; Admin Dose 50 MG; Start 11/23/16 at 09:00 Multivit/Ca Carb/ B Cmplx/FA/Prenat (Darcy-Jean-Pierre) 1 tab DAILY PO Last administered on 11/26/16 08:52; Admin Dose 1 TAB; Start 11/23/16 at 09:00 Prednisone (Prednisone) 5 mg BID PO Last administered on 11/26/16 21:15; Admin Dose 5 MG; Start 11/23/16 at 09:00 Zolpidem Tartrate (Ambien) 5 mg HS PRN PO INSOMNIA Last administered on 22:32; Admin Dose 5 MG; Start 11/23/16 at 22:30 Epoetin Vishal (Epogen (Esrd)) 8,000 units TuThSa@17 SC Last administered on 17:29; Admin Dose 8,000 UNITS; Start 11/24/16 at 17:00 Nifedipine (Procardia Xl) 30 mg BID PO Last administered on 11/26/16 21:15; Admin Dose 30 MG; Start 11/24/16 at 21:00 MIRIAM WESTBROOK MD Nov 27, 2016 08:15
[2016-11-27 08:23] LABS: CALCIUM 8.6 mg/dl (8.4-10.2); CREATININE 5.15 mg/dl (0.61-1.24); MAGNESIUM 2.5 mg/dl (1.7-2.5); POTASSIUM 3.4 mmol/L (3.5-5.1)
[2016-11-27] MEDS ORDERED: INDOMETHACIN 50 MG SUPP PR ONE (08:30)
--- NOTE | 2016-11-27 09:03 | PN ---
Date/Time of Note Date/Time of Note DATE: 11/27/16 TIME: 09:01 Assessment/Plan VTE Prophylaxis VTE Prophylaxis Intervention: SCD's Lines/Catheters IV C[facility] Type (from [facility] Saline Lock Urinary Cath still in place: No Assessment/Plan Chief Complaint/Hosp Course 1. Sepsis, secondary to underlying colitis. Continue antimicrobials. No evidence of any septic shock. Pancultures negative so far. 2. Abdominal pain. CT showing findings consistent with colitis which may be infectious or inflammatory in nature. The CT also showed distended gallbladder with mild thickening and pericholecystic edema with moderate biliary dilatation. MRCP showing irregular intraluminal filling defects within the common bile duct, which is nondilated with moderate to severe intrahepatic biliary ductal dilatation with areas of alternating stricturing and dilatation and scattered intraluminal filling defects throughout the intrahepatic ducts ( differential considerations include recurrent pyogenic cholangiohepatitis and primary sclerosing cholangitis). Continue antimicrobials. Being followed by gastroenterology. Plan for ERCP on 11/28/2016. 3. Two large sigmoid polyps, about 4-5 cm in size, oozing of blood. S/P biopsy. Resection not done because of high risk of bleeding. Pathology pending. General surgery on board for possible further bleeding. 4. End stage renal disease on hemodialysis. Continue hemodialysis as per nephrology. 5. Paroxysmal atrial fibrillation. The patient currently in sinus rhythm. The patient being followed by cardiology. Continue beta-blockers. 6. Hypothyroidism. Continue Synthroid. 7. Essential hypertension. Continue antihypertensives. 8. Anemia of chronic kidney disease. Epogen as per nephrology. 9. Dyslipidemia. Low-cholesterol diet. 10. History of prostate cancer. Currently on prednisone as per outpatient oncologist. 11. S/P unwitnessed fall on 11/26/2016. CT brain showed bilateral, predominantly chronic subdural collections with some minimal acute component on the left. Being followed by neurosurgery. Monitor mental status closely. 12. Fluids, electrolytes, and nutrition. Renal, low-cholesterol diet. 13. DVT prophylaxis. B/L SCDs. 14. Plan. Continue antimicrobials. Plan for ERCP on 11/28/2016 Await further recommendations from consultants. Case discussed with Dr. Limon. Problems: Subjective 24 Hr Interval Summary Free Text/Dictation The patient remains afebrile. Exam/Review of Systems Vital Signs Vitals Vital Signs Date Time Temp Pulse Resp B/P Pulse Ox O2 Delivery O2 Flow Rate FiO2 11/27/16 08:08 51 11/27/16 08:03 98.1 18 153/75 98 11/26/16 20:00 Nasal Cannula 2.0 Intake and Output 11/26/16 11/26/16 11/27/16 15:00 23:00 07:00 Intake Total 50 ml 150 ml 100 ml Balance 50 ml 150 ml 100 ml Exam General: Adequately build 76 year-old male lying in bed in no apparent distress. HEENT: Normocephalic, atraumatic. Eyes: Anicteric sclerae, conjunctivae clear. ENT: Nasal septum midline, oral mucosa moist. Neck supple, no JVD noticed. Respiratory: Bilaterally clear breath sounds. No use of accessory muscles of respiration. No adventitious breath sounds. Cardiovascular: S1, S2 heard. No murmurs or gallops. Abdomen: Soft, nontender, and nondistended. Bowel sounds positive in all 4 quadrants. Genitourinary: Deferred. Extremities: No cyanosis, no clubbing, no edema. Peripheral pulses palpable. Neurologic: Cranial nerves II through XII grossly intact. The patient is awake, alert, and oriented. Skin: Normal skin turgor. No skin rashes. Results Result Diagram: 11/27/16 0704 11/27/16 0704 Results 24 hrs Laboratory Tests Test 11/26/16 13:45 11/27/16 07:04 Hemoglobin 10.7 L 9.4 L Hematocrit 34.4 L 31.2 L White Blood Count 5.3 # Red Blood Count 3.61 L Mean Corpuscular Volume 86.4 Mean Corpuscular Hemoglobin 26.0 L Mean Corpuscular Hemoglobin Concent 30.1 L Red Cell Distribution Width 16.9 H Platelet Count 213 Mean Platelet Volume 10.8 H Neutrophils % 71.2 Lymphocytes % 16.6 Monocytes % 10.4 Eosinophils % 0.4 Basophils % 0.8 Nucleated Red Blood Cells % 0.0 Neutrophils # 3.8 Lymphocytes # 0.9 Monocytes # 0.6 Eosinophils # 0.0 Basophils # 0.0 Nucleated Red Blood Cells # 0.0 Sodium Level 144 Potassium Level 3.4 L Chloride Level 102 Carbon Dioxide Level 24 Anion Gap 21 H Blood Urea Nitrogen 27 H Creatinine 5.15 H Glucose Level 119 Calcium Level 8.6 Phosphorus Level 5.5 #H Magnesium Level 2.5 Medications Medications Current Medications Ondansetron HCl (Zofran Inj) 4 mg Q6H PRN IV NAUSEA AND/OR VOMITING; Start at 02:00 Acetaminophen (Tylenol Tab) 650 mg Q6H PRN PO PAIN LEVEL 1-3 OR FEVER Last administered on 11/24/16 11:38; Admin Dose 650 MG; Start 11/23/16 at 02:00 Morphine Sulfate (morphine) 2 mg Q4H PRN IV PAIN LEVEL 7-10 Last administered on 11/26/16 04:51; Admin Dose 2 MG; Start 11/23/16 at 02:00 Pantoprazole (Protonix Iv) 40 mg DAILY@06 IV Last administered on 11/27/16 06 :05; Admin Dose 40 MG; Start 11/23/16 at 06:00 Hydralazine HCl (Apresoline) 10 mg Q4H PRN IV ELEVATED SYSTOLIC BP Last administered on 11/23/16 01:49; Admin Dose 10 MG; Start 11/23/16 at 02:00 Hydralazine HCl 20 mg 20 mg Q6H PRN IV ELEVATED SYSTOLIC BP Last administered on 11/26/16 00:53; Admin Dose 20 MG; Start 11/23/16 at 02:00 Piperacillin Sod/ Tazobactam Sod (Zosyn 2.25gm/ 50ml (Pmx)) 50 ml @ 100 mls/hr Q12 IVPB Last administered on 11/26/16 21:14; Admin Dose 100 MLS/HR; Start 11/23/16 at 02:00 Metoprolol Tartrate (Lopressor) 50 mg BID PO Last administered on 11/26/16 21 :14; Admin Dose 50 MG; Start 11/23/16 at 09:00 Multivit/Ca Carb/ B Cmplx/FA/Prenat (Darcy-Jean-Pierre) 1 tab DAILY PO Last administered on 11/26/16 08:52; Admin Dose 1 TAB; Start 11/23/16 at 09:00 Prednisone (Prednisone) 5 mg BID PO Last administered on 11/26/16 21:15; Admin Dose 5 MG; Start 11/23/16 at 09:00 Zolpidem Tartrate (Ambien) 5 mg HS PRN PO INSOMNIA Last administered on 22:32; Admin Dose 5 MG; Start 11/23/16 at 22:30 Epoetin Vishal (Epogen (Esrd)) 8,000 units TuThSa@17 SC Last administered on 17:29; Admin Dose 8,000 UNITS; Start 11/24/16 at 17:00 Nifedipine (Procardia Xl) 30 mg BID PO Last administered on 11/26/16 21:15; Admin Dose 30 MG; Start 11/24/16 at 21:00 CARLIE BREWER NP Nov 27, 2016 09:03
[2016-11-27] MEDS: METOPROLOL 50 MG TAB PO SCH ×2 (09:13→20:43)
[2016-11-27] MEDS: MULTIVIT/CA CARB/B CMPLX/FA TAB PO SCH (09:13)
[2016-11-27] MEDS: PIPER-TAZO 2.25 GM (PMX) 50 ML IVPB SCH ×2 (09:13→20:42)
[2016-11-27] MEDS: predniSONE 5 MG TAB PO SCH ×2 (09:13→20:43)
[2016-11-27] MEDS: NIFEdipine (XL) 30 MG TAB PO SCH ×2 (09:13→20:43)
[2016-11-27] MEDS ORDERED: POTASSIUM CHLORIDE (SR) 20 MEQ TAB PO STA (12:02)
--- NOTE | 2016-11-27 16:32 | PN ---
DATE: 11/27/2016 SUBJECTIVE: The patient had hemodialysis yesterday without any complications. No other events note d. OBJECTIVE: VITAL SIGNS: Blood pressure is 153/75, respiration 18, pulse 65, temperature 98.1. HEENT: Head is normocephalic. NECK: Supple. HEART: Regular rate. LUNGS: Show diminished breath sounds at the base. ABDOMEN: Soft, nontender to palpation. No rebound or guarding. EXTREMITIES: Negative for clubbing, cyanosis, no edema. DERMATOLOGIC: No rashes. MUSCULOSKELETAL: No joint effusions. NEUROLOGIC: No change in exam. MEDICATIONS: The patient's medications have been reviewed. LABORATORY DATA: Has been reviewed. The patient's potassium is 3.3. ASSESSMENT AND PLAN: 1. End-stage renal disease. The patient is on dialysis Monday, , Monday, had hemodialys is yesterday. Plan for next dialysis on Monday. 2. Hypokalemia. Will replete with potassium chloride. 3. Mineral bone disorder, monitor calcium and phosphorus levels. Continue phosphate binders. 4. Anemia. Monitor hemoglobin and hematocrit levels. Continue Epogen. 5. Hypertension. Continue current blood pressure regimen. 6. Coronary artery disease. Continue current medical management. 7. Diabetes. Continue Accu-Cheks, insulin sliding scale. 8. Abdominal pain, pancreatitis, colitis. Continue medical management. Follow up with primary gokul pete. 9. Paroxysmal atrial fibrillation, currently in sinus rhythm. Continue current treatment plan. Dictated By: ASIM GARCIA/GOPAL Conf#: [id number] DID#: [id number]
[2016-11-27] MEDS: hydrALAzine 20 MG INJ IV PRN ×2 (16:33→23:52)
--- NOTE | 2016-11-27 20:33 | CONS ---
Date/Time of Note Date/Time of Note DATE: 11/27/16 TIME: 20:30 Consult Date/Type/Reason Admit Date/Time Nov 22, 2016 at 20:45 Initial Consult Date 11/26/16 Type of Consultation: General Surgery Subjective tolerating regular diet well no abd pain no more GI bleeding noted Objective Vital Signs Date Time Temp Pulse Resp B/P Pulse Ox O2 Delivery O2 Flow Rate FiO2 11/27/16 20:16 98.0 65 20 185/76 99 11/27/16 09:25 Nasal Cannula 2.0 Intake and Output 11/26/16 11/26/16 11/27/16 15:00 23:00 07:00 Intake Total 50 ml 150 ml 100 ml Balance 50 ml 150 ml 100 ml Exam A/O NAD abd soft nt nd, no RUQ ttp lungs CTA B Results/Medications Result Diagram: 11/27/1670311/27/1604 Results 24 hrs Laboratory Tests Test 11/27/16 07:04 White Blood Count 5.3 # Red Blood Count 3.61 L Hemoglobin 9.4 L Hematocrit 31.2 L Mean Corpuscular Volume 86.4 Mean Corpuscular Hemoglobin 26.0 L Mean Corpuscular Hemoglobin Concent 30.1 L Red Cell Distribution Width 16.9 H Platelet Count 213 Mean Platelet Volume 10.8 H Neutrophils % 71.2 Lymphocytes % 16.6 Monocytes % 10.4 Eosinophils % 0.4 Basophils % 0.8 Nucleated Red Blood Cells % 0.0 Neutrophils # 3.8 Lymphocytes # 0.9 Monocytes # 0.6 Eosinophils # 0.0 Basophils # 0.0 Nucleated Red Blood Cells # 0.0 Sodium Level 144 Potassium Level 3.4 L Chloride Level 102 Carbon Dioxide Level 24 Anion Gap 21 H Blood Urea Nitrogen 27 H Creatinine 5.15 H Glucose Level 119 Calcium Level 8.6 Phosphorus Level 5.5 #H Magnesium Level 2.5 Medications Current Medications Ondansetron HCl (Zofran Inj) 4 mg Q6H PRN IV NAUSEA AND/OR VOMITING; Start at 02:00 Acetaminophen (Tylenol Tab) 650 mg Q6H PRN PO PAIN LEVEL 1-3 OR FEVER Last administered on 11/24/16t 11:38; Admin Dose 650 MG; Start 11/23/16 at 02:00 Morphine Sulfate (morphine) 2 mg Q4H PRN IV PAIN LEVEL 7-10 Last administered on 11/26/16 04:51; Admin Dose 2 MG; Start 11/23/16 at 02:00 Pantoprazole (Protonix Iv) 40 mg DAILY@06 IV Last administered on 11/27/16 06 :05; Admin Dose 40 MG; Start 11/23/16 at 06:00 Hydralazine HCl (Apresoline) 10 mg Q4H PRN IV ELEVATED SYSTOLIC BP Last administered on 11/27/16 16:33; Admin Dose 10 MG; Start 11/23/16 at 02:00 Hydralazine HCl 20 mg 20 mg Q6H PRN IV ELEVATED SYSTOLIC BP Last administered on 11/26/16 00:53; Admin Dose 20 MG; Start 11/23/16 at 02:00 Piperacillin Sod/ Tazobactam Sod (Zosyn 2.25gm/ 50ml (Pmx)) 50 ml @ 100 mls/hr Q12 IVPB Last administered on 11/27/16 09:13; Admin Dose 100 MLS/HR; Start 11/23/16 at 02:00 Metoprolol Tartrate (Lopressor) 50 mg BID PO Last administered on 11/27/16 09 :13; Admin Dose 50 MG; Start 11/23/16 at 09:00 Multivit/Ca Carb/ B Cmplx/FA/Prenat (Darcy-Jean-Pierre) 1 tab DAILY PO Last administered on 11/27/16 09:13; Admin Dose 1 TAB; Start 11/23/16 at 09:00 Prednisone (Prednisone) 5 mg BID PO Last administered on 11/27/16 09:13; Admin Dose 5 MG; Start 11/23/16 at 09:00 Zolpidem Tartrate (Ambien) 5 mg HS PRN PO INSOMNIA Last administered on 22:32; Admin Dose 5 MG; Start 11/23/16 at 22:30 Epoetin Vishal (Epogen (Esrd)) 8,000 units TuThSa@17 SC Last administered on 17:29; Admin Dose 8,000 UNITS; Start 11/24/16 at 17:00 Nifedipine (Procardia Xl) 30 mg BID PO Last administered on 11/27/16 09:13; Admin Dose 30 MG; Start 11/24/16 at 21:00 Assessment/Plan Chief Complaint/Hosp Course GI bleeding Problems: (1) Colitis (2) Lower GI bleed (3) Colon polyps (4) Thickening of wall of gallbladder Additional Assessment/Plan Colitis: cont abx per GI GI bleeding: subsided Colon polyps: F/U pathology to see if resection necessary GB wall thickening: no e/o cholecystitis; cont to monitor LOUIE JACK Nov 27, 2016 20:33
[2016-11-28] VITALS (15 sets, daily range): BP systolic 78–181; BP diastolic 47–81; PULSE 59–80; RESP 16–29
[2016-11-28] MEDS: ZOLPIDEM 5 MG TAB PO PRN (00:42)
[2016-11-28] MEDS: LEVOTHYROXINE 50 MCG TAB PO SCH (06:39)
[2016-11-28] MEDS: PANTOPRAZOLE 40 MG INJ IV SCH (06:39)
[2016-11-28 07:15] LABS: BASOPHIL # 0.1 10^3/ul (0.0-0.1); BASOPHILS % 0.9 % (0.0-2.0); EOSINOPHILS % 0.4 % (0.0-7.0); HEMATOCRIT 33.5 % (42.0-52.0); HEMOGLOBIN 10.3 g/dl (14.0-18.0); LYMPHOCYTES % 17.3 % (15.0-51.0); MEAN CORPUSCULAR HEMOGLOBIN 26.7 pg (29.0-33.0); MEAN CORPUSCULAR HGB CONC 30.7 g/dl (32.0-37.0); MEAN CORPUSCULAR VOLUME 86.8 fl (82.0-101.0); MEAN PLATELET VOLUME 9.7 fl (7.4-10.4); MONOCYTE # 0.5 10^3/ul (0.3-0.9); MONOCYTES % 9.3 % (0.0-11.0); NEUTROPHIL # 3.9 10^3/ul (1.6-7.5); NEUTROPHILS % 70.1 % (39.0-77.0); NUCLEATED RED BLOOD CELLS% 0.7 /100WBC (0.0-0.0); PLATELET COUNT 222 10^3/UL (140-415); RED BLOOD COUNT 3.86 10^6/ul (4.70-6.10); RED CELL DISTRIBUTION WIDTH 17.2 % (11.5-14.5); WHITE BLOOD COUNT 5.6 10^3/ul (4.8-10.8)
[2016-11-28 07:39] LABS: CALCIUM 8.8 mg/dl (8.4-10.2); CREATININE 6.95 mg/dl (0.61-1.24); POTASSIUM 4.1 mmol/L (3.5-5.1)
--- NOTE | 2016-11-28 07:53 | PN ---
DATE: 11/26/2016 SUBJECTIVE: The patient is stable, currently having hemodialysis. No other events noted. OBJECTIVE: VITAL SIGNS: Blood pressure is 115/47, temperature 98.7, pulse 70, respirations 17. HEENT: Head is normocephalic. NECK: Supple. HEART: Regular rate. LUNGS: Show diminished breath sounds at base. ABDOMEN: Soft, nontender to palpation. No rebound or guarding. EXTREMITIES: Negative for clubbing, cyanosis. No edema. DERMATOLOGIC: No rashes. MUSCULOSKELETAL: No joint effusions. NEUROLOGIC: No change in exam. MEDICATIONS: The patient's medications have been reviewed. LABORATORY DATA: Shows a white count of 7.2, hemoglobin 9.8, hematocrit of 32.4, platelet count is 193. Sodium 143, potassium 3.3, BUN 37, creatinine 7.11, magnesium 2.9, phosphorus 7.8. ASSESSMENT AND PLAN: 1. End-stage renal disease. The patient is currently on hemodialysis. We will dialyze for 3 hours , 4K bath, calcium 2.5. Ultrafiltrate as tolerated. 2. Hypokalemia, resolved. 3. Hyperkalemia. The patient will be dialyzed on a high potassium bath. 4. Mineral bone disorder. Monitor calcium and phosphorus levels. Continue phosphorous binders. 5. Anemia. Monitor hemoglobin and hematocrit levels. 6. Hypertension. Continue current blood pressure regimen. 7. Coronary artery disease. Continue medical management. 8. Diabetes. Continue Accu-Cheks, insulin sliding scale. 9. Abdominal pain, pancreatitis. Continue medical management. Follow with primary team. 10. Atrial fibrillation, currently in sinus rhythm. Continue to monitor. Follow up with cardiolog y. Dictated By: ASIM GARCIA/GOPAL Conf#: [id number] DID#: [id number] CC: LUNA CURRY MD;*EndCC*
[2016-11-28] MEDS: SEVELAMER CARBONATE 0.8 GM PKT PO SCH ×3 (07:55→17:55)
[2016-11-28 08:21] LABS: MAGNESIUM 2.6 mg/dl (1.7-2.5); PHOSPHORUS 4.6 mg/dl (2.5-4.9)
[2016-11-28] MEDS: METOPROLOL 50 MG TAB PO SCH ×2 (09:00→21:18)
[2016-11-28] MEDS: NIFEdipine (XL) 30 MG TAB PO SCH ×2 (09:00→21:17)
[2016-11-28] MEDS: predniSONE 5 MG TAB PO SCH ×2 (09:00→21:17)
[2016-11-28] MEDS: MULTIVIT/CA CARB/B CMPLX/FA TAB PO SCH (09:00)
--- NOTE | 2016-11-28 09:11 | PN ---
DATE: 11/28/2016 SUBJECTIVE: The patient is stable. No events overnight. No fevers, chills, nausea, vomiting. OBJECTIVE: VITAL SIGNS: Blood pressure is 181/80, temperature 98, pulse 65, respiration 18. HEENT: Head is normocephalic. NECK: Supple. HEART: Regular rate. LUNGS: Show diminished breath sounds at base. ABDOMEN: Soft, nontender to palpation. No rebound or guarding. EXTREMITIES: Negative for clubbing, cyanosis. No edema. DERMATOLOGIC: No rashes. MUSCULOSKELETAL: No joint effusions. NEUROLOGIC: No change in exam. MEDICATIONS: The patient's medications have been reviewed. LABORATORY DATA: Shows sodium 144, potassium 4.1, BUN 42, creatinine 6.95. White count 5.6, hemogl obin 10.3, hematocrit 33.5, platelet count is 222. ASSESSMENT AND PLAN: 1. End-stage renal disease. Plan for hemodialysis today. Will dialyze for 3 hours on 3 K bath, ca lcium 2.5. 2. Hypokalemia, improved. 3. Mineral bone disorder. Monitor calcium and phosphorus levels. 4. Anemia, monitor hemoglobin and hematocrit levels. Will give Epogen as needed. 5. Hypertension. Continue current blood pressure regimen. 6. Coronary artery disease. Continue current medical management. 7. Diabetes. Continue Accu-Cheks and insulin sliding scale. 8. Abdominal pain, pancreatitis. Continue current medical management. Patient is pending ERCP tod ay 9. Paroxysmal atrial fibrillation, currently in sinus rhythm. Continue current treatment plan. Dictated By: ASIM GARCIA/GOPAL Conf#: [id number] DID#: [id number]
[2016-11-28] MEDS: PIPER-TAZO 2.25 GM (PMX) 50 ML IVPB SCH ×2 (09:59→21:17)
[2016-11-28] MEDS: hydrALAzine 20 MG INJ IV PRN (10:36)
--- NOTE | 2016-11-28 11:06 | PN ---
Date/Time of Note Date/Time of Note DATE: 11/28/16 TIME: 10:38 Assessment/Plan VTE Prophylaxis VTE Prophylaxis Intervention: SCD's Lines/Catheters [facility] Urinary Cath still in place: No Assessment/Plan Chief Complaint/Hosp Course Assessment: Pancreatitis- improving Anemia/ now stable likely secondary to chronic disease and sigmoid polyps, oozing blood Colitis EGD antral and body erythema: biopsy taken to r/o H. pylori Mallery cabrera tear, healing Colonoscopy- with tattoo of proximal and distal region of the sigmoid polyps Two large sigmoid polyps, about 4-5 cm in size, oozing of blood, likely the bleeding source. Biopsies taken to r/o dysplasia. 1 cm transverse colon polyp s/p forcep polypectomy patchy erythema Diverticulosis in the sigmoid internal hemorrhoids. ESRD- on HD Paroxysmal A-fib Plan: Continue PPI therapy Surgery consulted- no plans for surgery at this time- will reevaluate based on results of pathology Await biopsy's treat based on results Patient seen in collaboration with Dr. Guallpa Subjective: Course reviewed with nursing staff Patient interviewed and examined All labs, imaging and other results reviewed MRCP 11-24-16 showing irregular intraluminal filling defects within the common bile duct, which is nondilated with moderate to severe intrahepatic biliary ductal dilatation with areas of alternating stricturing and dilatation and scattered intraluminal filling defects throughout the intrahepatic ducts ( differential considerations include recurrent pyogenic cholangiohepatitis and primary sclerosing cholangitis) Will discuss need for ERCP with Dr. Guallpa Patient feeling well, just finished working with Physical therapy and is starting HD at this time. Problems: Exam/Review of Systems Vital Signs Vitals Vital Signs Date Time Temp Pulse Resp B/P Pulse Ox O2 Delivery O2 Flow Rate FiO2 11/28/16 08:30 59 11/28/16 07:34 98.0 18 181/81 98 11/27/16 09:25 Nasal Cannula 2.0 Intake and Output 11/27/16 11/27/16 11/28/16 15:00 23:00 07:00 Intake Total 50 ml 840 ml 420 ml Balance 50 ml 840 ml 420 ml Results Result Diagram: 11/28/16 0703 11/28/16 0703 Results 24 hrs Laboratory Tests Test 11/28/16 07:03 White Blood Count 5.6 Red Blood Count 3.86 L Hemoglobin 10.3 L Hematocrit 33.5 L Mean Corpuscular Volume 86.8 Mean Corpuscular Hemoglobin 26.7 L Mean Corpuscular Hemoglobin Concent 30.7 L Red Cell Distribution Width 17.2 H Platelet Count 222 Mean Platelet Volume 9.7 Neutrophils % 70.1 Lymphocytes % 17.3 Monocytes % 9.3 Eosinophils % 0.4 Basophils % 0.9 Nucleated Red Blood Cells % 0.7 H Neutrophils # 3.9 Lymphocytes # 1.0 Monocytes # 0.5 Eosinophils # 0.0 Basophils # 0.1 Nucleated Red Blood Cells # 0.0 Sodium Level 144 Potassium Level 4.1 Chloride Level 104 Carbon Dioxide Level 25 Anion Gap 19 H Blood Urea Nitrogen 42 #H Creatinine 6.95 H Glucose Level 160 Calcium Level 8.8 Phosphorus Level 4.6 Magnesium Level 2.6 H Medications Medications Current Medications Ondansetron HCl (Zofran Inj) 4 mg Q6H PRN IV NAUSEA AND/OR VOMITING; Start at 02:00 Acetaminophen (Tylenol Tab) 650 mg Q6H PRN PO PAIN LEVEL 1-3 OR FEVER Last administered on 11/24/16 11:38; Admin Dose 650 MG; Start 11/23/16 at 02:00 Morphine Sulfate (morphine) 2 mg Q4H PRN IV PAIN LEVEL 7-10 Last administered on 11/26/16 04:51; Admin Dose 2 MG; Start 11/23/16 at 02:00 Pantoprazole (Protonix Iv) 40 mg DAILY@06 IV Last administered on 11/28/16 06 :39; Admin Dose 40 MG; Start 11/23/16 at 06:00 Hydralazine HCl (Apresoline) 10 mg Q4H PRN IV ELEVATED SYSTOLIC BP Last administered on 11/27/16 16:33; Admin Dose 10 MG; Start 11/23/16 at 02:00 Hydralazine HCl 20 mg 20 mg Q6H PRN IV ELEVATED SYSTOLIC BP Last administered on 11/27/16 23:52; Admin Dose 20 MG; Start 11/23/16 at 02:00 Piperacillin Sod/ Tazobactam Sod (Zosyn 2.25gm/ 50ml (Pmx)) 50 ml @ 100 mls/hr Q12 IVPB Last administered on 11/28/16 09:59; Admin Dose 100 MLS/HR; Start 11/23/16 at 02:00 Metoprolol Tartrate (Lopressor) 50 mg BID PO Last administered on 11/27/16 20 :43; Admin Dose 50 MG; Start 11/23/16 at 09:00 Multivit/Ca Carb/ B Cmplx/FA/Prenat (Darcy-Jean-Pierre) 1 tab DAILY PO Last administered on 11/27/16 09:13; Admin Dose 1 TAB; Start 11/23/16 at 09:00 Prednisone (Prednisone) 5 mg BID PO Last administered on 11/27/16 20:43; Admin Dose 5 MG; Start 11/23/16 at 09:00 Zolpidem Tartrate (Ambien) 5 mg HS PRN PO INSOMNIA Last administered on 00:42; Admin Dose 5 MG; Start 11/23/16 at 22:30 Epoetin Vishal (Epogen (Esrd)) 8,000 units TuThSa@17 SC Last administered on 17:29; Admin Dose 8,000 UNITS; Start 11/24/16 at 17:00 Nifedipine (Procardia Xl) 30 mg BID PO Last administered on 11/27/16 20:43; Admin Dose 30 MG; Start 11/24/16 at 21:00 LUIS RING Nov 28, 2016 10:49
--- NOTE | 2016-11-28 14:37 | PN ---
Date/Time of Note Date/Time of Note DATE: 11/28/16 TIME: 14:30 Assessment/Plan VTE Prophylaxis VTE Prophylaxis Intervention: SCD's Lines/Catheters [facility]from [facility]ine [facility] Urinary Cath still in place: No Assessment/Plan Chief Complaint/Hosp Course Assessment and plan 1. Sepsis secondary to underlying colitis. Continue antibiotics. Cultures negative so far. We will follow. 2. Abdominal pain likely secondary to colitis. Patient did have MRCP showing irregular intraluminal filling defects within the common bile duct, which is nondilated. Moderate to severe intrahepatic biliary ductal dilatation with areas of alternating stricturing and dilatation and scattered intraluminal filling defects throughout the intrahepatic ducts continue with GI recommendations. Tentative plan for ERCP. 3. 2 large sigmoid polyps is 45 cm in size) with oozing of blood. Patient status post EGD/colonoscopy. Resection not done due to high risk of bleeding. Follow-up pathology. 4. Incisional disease. Continue on dialysis 5. Paroxysmal atrial fibrillation. Stable at present. Continue on beta- hector. 6. Hypothyroidism. Continue on Synthroid 7. Essential hypertension. Continue antihypertensives and adjust as needed 8. Anemia of chronic disease. Continue Neupogen 9. Dyslipidemia. On the fat low cholesterol diet. 10. History of prostate cancer. Continue on prednisone. Patient for outpatient follow-up with oncologist. 11. Status post fall (unwitnessed) on November 26, 2016. Patient does show CT scan of the brain with bilateral predominantly chronic subdural collections with some minimal acute component of the left. Neurosurgeon is following. Follow-up on patient's mental status. Stable at present. Will monitor Disposition and plan: Tentative plan for ERCP. Follow-up on biopsies. Continue house monitoring. Monitor neuro status. Discussed plan of care with Dr. France Problems: Subjective 24 Hr Interval Summary Free Text/Dictation patient resting in bed. family at bedside. denies any abdominal pain at this time Exam/Review of Systems Vital Signs Vitals Vital Signs Date Time Temp Pulse Resp B/P Pulse Ox O2 Delivery O2 Flow Rate FiO2 11/28/16 11:38 97.8 71 18 168/47 96 11/27/16 09:25 Nasal Cannula 2.0 Intake and Output 11/27/16 11/27/16 11/28/16 15:00 23:00 07:00 Intake Total 50 ml 840 ml 420 ml Balance 50 ml 840 ml 420 ml Exam Constitutional: alert, oriented Psych: no complaints Head: normocephalic Respiratory: clear to auscultation Cardiovascular: other (regular rate) Gastrointestinal: non-tender, soft Neurological: nl mental status, nl speech Results Result Diagram: 11/28/1670211/28/16 07 Results 24 hrs Laboratory Tests Test 11/28/16 07:03 White Blood Count 5.6 Red Blood Count 3.86 L Hemoglobin 10.3 L Hematocrit 33.5 L Mean Corpuscular Volume 86.8 Mean Corpuscular Hemoglobin 26.7 L Mean Corpuscular Hemoglobin Concent 30.7 L Red Cell Distribution Width 17.2 H Platelet Count 222 Mean Platelet Volume 9.7 Neutrophils % 70.1 Lymphocytes % 17.3 Monocytes % 9.3 Eosinophils % 0.4 Basophils % 0.9 Nucleated Red Blood Cells % 0.7 H Neutrophils # 3.9 Lymphocytes # 1.0 Monocytes # 0.5 Eosinophils # 0.0 Basophils # 0.1 Nucleated Red Blood Cells # 0.0 Sodium Level 144 Potassium Level 4.1 Chloride Level 104 Carbon Dioxide Level 25 Anion Gap 19 H Blood Urea Nitrogen 42 #H Creatinine 6.95 H Glucose Level 160 Calcium Level 8.8 Phosphorus Level 4.6 Magnesium Level 2.6 H Medications Medications Current Medications Ondansetron HCl (Zofran Inj) 4 mg Q6H PRN IV NAUSEA AND/OR VOMITING; Start at 02:00 Acetaminophen (Tylenol Tab) 650 mg Q6H PRN PO PAIN LEVEL 1-3 OR FEVER Last administered on 11/24/16 11:38; Admin Dose 650 MG; Start 11/23/16 at 02:00 Morphine Sulfate (morphine) 2 mg Q4H PRN IV PAIN LEVEL 7-10 Last administered on 11/26/16 04:51; Admin Dose 2 MG; Start 11/23/16 at 02:00 Pantoprazole (Protonix Iv) 40 mg DAILY@06 IV Last administered on 11/28/16 06 :39; Admin Dose 40 MG; Start 11/23/16 at 06:00 Hydralazine HCl (Apresoline) 10 mg Q4H PRN IV ELEVATED SYSTOLIC BP Last administered on 11/27/16 16:33; Admin Dose 10 MG; Start 11/23/16 at 02:00 Hydralazine HCl 20 mg 20 mg Q6H PRN IV ELEVATED SYSTOLIC BP Last administered on 11/28/16 10:36; Admin Dose 20 MG; Start 11/23/16 at 02:00 Piperacillin Sod/ Tazobactam Sod (Zosyn 2.25gm/ 50ml (Pmx)) 50 ml @ 100 mls/hr Q12 IVPB Last administered on 11/28/16 09:59; Admin Dose 100 MLS/HR; Start 11/23/16 at 02:00 Metoprolol Tartrate (Lopressor) 50 mg BID PO Last administered on 11/27/16 20 :43; Admin Dose 50 MG; Start 11/23/16 at 09:00 Multivit/Ca Carb/ B Cmplx/FA/Prenat (Darcy-Jean-Pierre) 1 tab DAILY PO Last administered on 11/27/16 09:13; Admin Dose 1 TAB; Start 11/23/16 at 09:00 Prednisone (Prednisone) 5 mg BID PO Last administered on 11/27/16 20:43; Admin Dose 5 MG; Start 11/23/16 at 09:00 Zolpidem Tartrate (Ambien) 5 mg HS PRN PO INSOMNIA Last administered on 00:42; Admin Dose 5 MG; Start 11/23/16 at 22:30 Epoetin Vishal (Epogen (Esrd)) 8,000 units TuThSa@17 SC Last administered on 17:29; Admin Dose 8,000 UNITS; Start 11/24/16 at 17:00 Nifedipine (Procardia Xl) 30 mg BID PO Last administered on 11/27/16 20:43; Admin Dose 30 MG; Start 11/24/16 at 21:00 ANTONIO BILLINGSLEY Nov 28, 2016 14:37
[2016-11-28] MEDS ORDERED: IOHEXOL 300MG/ML 30 ML BTL ONE (18:03)
[2016-11-28] MEDS ORDERED: ROCURONIUM 50 MG INJ ONE (18:23)
[2016-11-28] MEDS ORDERED: PROPOFOL 20 ML ONE (18:23)
[2016-11-28] MEDS ORDERED: FENTAnyl 50 MCG/ML VIAL ONE (18:23)
[2016-11-28] MEDS ORDERED: CEFAZOLIN 1 GM INJ ONE (18:50)
[2016-11-28] MEDS ORDERED: PHENYLephrine (100 MCG/ML) 5ML SYG ONE (18:50)
[2016-11-28] MEDS ORDERED: DEXAMETHASONE 4 MG/ML 1 ML INJ ONE (19:00)
[2016-11-28] MEDS ORDERED: METOCLOPRAMIDE 10 MG INJ ONE (19:00)
[2016-11-28] MEDS ORDERED: ONDANSETRON 4 MG INJ ONE (19:00)
[2016-11-28] MEDS ORDERED: SUGAMMADEX SODIUM 200 MG/2 ML VIAL IV ONE (19:00)
--- NOTE | 2016-11-28 19:24 | OPPN ---
Date/Time of Note Date/Time of Note DATE: 11/28/16 TIME: 19:17 Proc Note GI Procedure Date 11/28/16 Indication: other (Abnormal MRCP) Pre-procedure Diagnosis Abnormal MRCP Post-procedure Diagnosis Impression: Prominent ampulla with adenomatous appearance. Biopsies obtained Dilated pancreatic duct (suboptimally filled purposely) Dilated biliary tree with a persistent defect in the junction of the common hepatic duct and common bile duct the takeoff of the cystic duct which appears to be artifactual effect of the takeoff of the cystic duct. Sweeping of the biliary tree disclose no evidence of stones or sludge Filling of the intrahepatic showed some irregularity in the intrahepatic ducts. Doubt PSC, Bili WNL, AP WNL Plan: Advance diet as tolerated CA19-9 . Procedure Performed: ERCP (+ ERS) Surgeon VERNON LEONARD MD. Finance Advisor none Anesthesia Type: general Anesthesiologist: TORRI FALCON MD Tourniquet Time none EBL none Transfusion required none Biopsy 1: Prominent ampulla Grafts/Implants none Tubes/Drains none Complication(s) none Disposition: PACU Procedure Description After informed consent, with the patient/relatives understanding the procedure, its indications, potential risks and complications, including but not limited to : allergic reaction, bleeding, perforation or infection, and after all pertinent questions were answered to the patients satisfaction, the patient/ relatives signed witnessed informed consent. Following this, premedication was administered slowly IV push under careful cardiovascular and respiratory monitoring with pulse oximetry, automatic blood pressure, and electronic device monitor. Once the sedative effect was achieved the patient was place in the prone position in the radiology special procedures suite; the side viewing panendoscope was introduced and advanced under visual control the second portion of the duodenum. With the following findings Ampulla of vater: The ampulla of Vater was identified and carefully examined appearing prominent when with an adenomatous appearance. Biopsies were obtained a limited fashion. Cannulation: At this point cannulation was accomplished with the following fluoroscopic findings: Pancreatogram: Partially filled purposely. There is dilatation of the pancreatic duct to an estimated lumen of 7 mm with no intraductal pathology. Suggestive of possibility of papillary stenosis Cholangiogram: There is significant dilatation of the biliary tree to at least 14 mm in maximum diameter. Cholangiogram shows an area of potential filling defect in the junction of the common hepatic and common bile duct however on careful examination it appears to be the takeoff of the cystic duct and sleeping through the area resulted no stones or other abnormalities present. Balloon cholangiogram of the intrahepatic system shows areas of slight irregularity however the possibility of PSC appears unlikely given the patient' s normal liver function tests including alkaline phosphatase. A standard sphincterotomy was performed without difficulty and the biliary tree was swept on several occasions with no stones/sludge obtained. The instrument was then withdrawn the patient tolerated the procedure well and was transfer out of the endoscopy suite awake, and in good condition to continue to recover under observation. Copies To: CC: VERNON LEONARD MD, MORDO MD Nov 28, 2016 19:24
[2016-11-28] MEDS ORDERED: FENTAnyl 50 MCG/ML VIAL IV PRN (19:30)
[2016-11-28] MEDS ORDERED: LABETALOL HCL 20MG INJ IV PRN (19:30)
[2016-11-28] MEDS ORDERED: EPHEDrine SULFATE 50 MG/5 ML SYG IV PRN (19:30)
[2016-11-28] MEDS ORDERED: ALBUMIN HUMAN 5% 250 ML IV PRN (19:30)
[2016-11-28] MEDS ORDERED: ONDANSETRON 4 MG INJ IV PRN (19:30)
[2016-11-28] MEDS ORDERED: METOCLOPRAMIDE 10 MG INJ IV PRN (19:30)
[2016-11-28] MEDS ORDERED: hydrALAzine 20 MG INJ IV PRN (19:30)
--- NOTE | 2016-11-28 21:40 | CONS ---
Date/Time of Note Date/Time of Note DATE: 11/28/16 TIME: 21:38 Consult Date/Type/Reason Admit Date/Time Nov 22, 2016 at 20:45 Initial Consult Date 11/26/16 Type of Consultation: General Surgery Subjective tolerating diet no more rectal bleeding noted awaiting pathology results Objective Vital Signs Date Time Temp Pulse Resp B/P Pulse Ox O2 Delivery O2 Flow Rate FiO2 11/28/16 20:05 97.6 77 18 167/77 98 11/28/16 19:23 Nasal Cannula 2.0 Intake and Output 11/27/16 11/27/16 11/28/16 15:00 23:00 07:00 Intake Total 50 ml 840 ml 420 ml Balance 50 ml 840 ml 420 ml Exam a/o nad abd soft nt nd pulses intact b ilateral Results/Medications Result Diagram: 11/28/1670211/28/16 0703 Results 24 hrs Laboratory Tests Test 11/28/16 07:03 11/28/16 16:27 White Blood Count 5.6 Red Blood Count 3.86 L Hemoglobin 10.3 L Hematocrit 33.5 L Mean Corpuscular Volume 86.8 Mean Corpuscular Hemoglobin 26.7 L Mean Corpuscular Hemoglobin Concent 30.7 L Red Cell Distribution Width 17.2 H Platelet Count 222 Mean Platelet Volume 9.7 Neutrophils % 70.1 Lymphocytes % 17.3 Monocytes % 9.3 Eosinophils % 0.4 Basophils % 0.9 Nucleated Red Blood Cells % 0.7 H Neutrophils # 3.9 Lymphocytes # 1.0 Monocytes # 0.5 Eosinophils # 0.0 Basophils # 0.1 Nucleated Red Blood Cells # 0.0 Sodium Level 144 Potassium Level 4.1 Chloride Level 104 Carbon Dioxide Level 25 Anion Gap 19 H Blood Urea Nitrogen 42 #H Creatinine 6.95 H Glucose Level 160 Calcium Level 8.8 Phosphorus Level 4.6 Magnesium Level 2.6 H Bedside Glucose 112 Medications Current Medications Ondansetron HCl (Zofran Inj) 4 mg Q6H PRN IV NAUSEA AND/OR VOMITING; Start at 02:00 Acetaminophen (Tylenol Tab) 650 mg Q6H PRN PO PAIN LEVEL 1-3 OR FEVER Last administered on 11/24/16t 11:38; Admin Dose 650 MG; Start 11/23/16 at 02:00 Morphine Sulfate (morphine) 2 mg Q4H PRN IV PAIN LEVEL 7-10 Last administered on 11/26/16 04:51; Admin Dose 2 MG; Start 11/23/16 at 02:00 Pantoprazole (Protonix Iv) 40 mg DAILY@06 IV Last administered on 11/28/16 06 :39; Admin Dose 40 MG; Start 11/23/16 at 06:00 Hydralazine HCl (Apresoline) 10 mg Q4H PRN IV ELEVATED SYSTOLIC BP Last administered on 11/27/16 16:33; Admin Dose 10 MG; Start 11/23/16 at 02:00 Hydralazine HCl 20 mg 20 mg Q6H PRN IV ELEVATED SYSTOLIC BP Last administered on 11/28/16 10:36; Admin Dose 20 MG; Start 11/23/16 at 02:00 Piperacillin Sod/ Tazobactam Sod (Zosyn 2.25gm/ 50ml (Pmx)) 50 ml @ 100 mls/hr Q12 IVPB Last administered on 11/28/16 21:17; Admin Dose 100 MLS/HR; Start 11/23/16 at 02:00 Metoprolol Tartrate (Lopressor) 50 mg BID PO Last administered on 11/28/16 21 :18; Admin Dose 50 MG; Start 11/23/16 at 09:00 Multivit/Ca Carb/ B Cmplx/FA/Prenat (Darcy-Jean-Pierre) 1 tab DAILY PO Last administered on 11/27/16 09:13; Admin Dose 1 TAB; Start 11/23/16 at 09:00 Prednisone (Prednisone) 5 mg BID PO Last administered on 11/28/16 21:17; Admin Dose 5 MG; Start 11/23/16 at 09:00 Zolpidem Tartrate (Ambien) 5 mg HS PRN PO INSOMNIA Last administered on 00:42; Admin Dose 5 MG; Start 11/23/16 at 22:30 Epoetin Vishal (Epogen (Esrd)) 8,000 units TuThSa@17 SC Last administered on 17:29; Admin Dose 8,000 UNITS; Start 11/24/16 at 17:00 Nifedipine (Procardia Xl) 30 mg BID PO Last administered on 11/28/16 21:17; Admin Dose 30 MG; Start 11/24/16 at 21:00 Assessment/Plan Chief Complaint/Hosp Course GI bleeding Problems: (1) Colon polyps (2) Colitis (3) Active bleeding Additional Assessment/Plan GI bleeding subsided Colitis improving; tolerating regular diet Referral to Dr Ganga Dyer as outpt for elective colonoscopy if necessary following pathology results. LOUIE JACK Nov 28, 2016 21:40
[2016-11-29] VITALS (34 sets, daily range): BP systolic 95–174; BP diastolic 50–84; PULSE 66–92; RESP 12–23
[2016-11-29] MEDS: PANTOPRAZOLE 40 MG INJ IV SCH (05:15)
[2016-11-29] MEDS: LEVOTHYROXINE 50 MCG TAB PO SCH (06:06)
--- NOTE | 2016-11-29 07:04 | CONS ---
Date/Time of Note Date/Time of Note DATE: 11/29/16 TIME: 07:02 Consult Date/Type/Reason Admit Date/Time Nov 22, 2016 at 20:45 Initial Consult Date 11/26/16 Type of Consultation: General Surgery Subjective pt tolerated ERCP well very somnolent this morning, likely from anesthesia not being fully worn off Objective Vital Signs Date Time Temp Pulse Resp B/P Pulse Ox O2 Delivery O2 Flow Rate FiO2 11/29/16 04:22 98.0 71 18 170/82 100 11/28/16 19:23 Nasal Cannula 2.0 Intake and Output 11/28/16 11/28/16 11/29/16 15:00 23:00 07:00 Intake Total 70 ml 200 ml Balance 70 ml 200 ml Exam somnolent abd soft nd Laboratory Tests Test 11/27/16 07:04 11/28/16 07:03 Blood Urea Nitrogen 27mg/dl 42mg/dl Carbon Dioxide Level 24mmol/L 25mmol/L Chloride Level 102mmol/L 104mmol/L Creatinine 5.15mg/dl 6.95mg/dl Glucose Level 119mg/dl 160mg/dl Hematocrit 31.2% 33.5% Hemoglobin 9.4g/dl 10.3g/dl Platelet Count 44022^3/UL 19746^3/UL Potassium Level 3.4mmol/L 4.1mmol/L Sodium Level 144mmol/L 144mmol/L White Blood Count 5.310^3/ul 5.610^3/ul Results/Medications Result Diagram: 11/28/16 0703 11/28/16 0703 Results 24 hrs Laboratory Tests Test 11/28/16 07:03 11/28/16 16:27 White Blood Count 5.6 Red Blood Count 3.86 L Hemoglobin 10.3 L Hematocrit 33.5 L Mean Corpuscular Volume 86.8 Mean Corpuscular Hemoglobin 26.7 L Mean Corpuscular Hemoglobin Concent 30.7 L Red Cell Distribution Width 17.2 H Platelet Count 222 Mean Platelet Volume 9.7 Neutrophils % 70.1 Lymphocytes % 17.3 Monocytes % 9.3 Eosinophils % 0.4 Basophils % 0.9 Nucleated Red Blood Cells % 0.7 H Neutrophils # 3.9 Lymphocytes # 1.0 Monocytes # 0.5 Eosinophils # 0.0 Basophils # 0.1 Nucleated Red Blood Cells # 0.0 Sodium Level 144 Potassium Level 4.1 Chloride Level 104 Carbon Dioxide Level 25 Anion Gap 19 H Blood Urea Nitrogen 42 #H Creatinine 6.95 H Glucose Level 160 Calcium Level 8.8 Phosphorus Level 4.6 Magnesium Level 2.6 H Bedside Glucose 112 Medications Current Medications Ondansetron HCl (Zofran Inj) 4 mg Q6H PRN IV NAUSEA AND/OR VOMITING; Start at 02:00 Acetaminophen (Tylenol Tab) 650 mg Q6H PRN PO PAIN LEVEL 1-3 OR FEVER Last administered on 11/24/16 11:38; Admin Dose 650 MG; Start 11/23/16 at 02:00 Morphine Sulfate (morphine) 2 mg Q4H PRN IV PAIN LEVEL 7-10 Last administered on 11/26/16 04:51; Admin Dose 2 MG; Start 11/23/16 at 02:00 Pantoprazole (Protonix Iv) 40 mg DAILY@06 IV Last administered on 11/29/16 05 :15; Admin Dose 40 MG; Start 11/23/16 at 06:00 Hydralazine HCl (Apresoline) 10 mg Q4H PRN IV ELEVATED SYSTOLIC BP Last administered on 11/27/16 16:33; Admin Dose 10 MG; Start 11/23/16 at 02:00 Hydralazine HCl 20 mg 20 mg Q6H PRN IV ELEVATED SYSTOLIC BP Last administered on 11/28/16 10:36; Admin Dose 20 MG; Start 11/23/16 at 02:00 Piperacillin Sod/ Tazobactam Sod (Zosyn 2.25gm/ 50ml (Pmx)) 50 ml @ 100 mls/hr Q12 IVPB Last administered on 11/28/16 21:17; Admin Dose 100 MLS/HR; Start 11/23/16 at 02:00 Metoprolol Tartrate (Lopressor) 50 mg BID PO Last administered on 11/28/16 21 :18; Admin Dose 50 MG; Start 11/23/16 at 09:00 Multivit/Ca Carb/ B Cmplx/FA/Prenat (Darcy-Jean-Pierre) 1 tab DAILY PO Last administered on 11/27/16 09:13; Admin Dose 1 TAB; Start 11/23/16 at 09:00 Prednisone (Prednisone) 5 mg BID PO Last administered on 11/28/16 21:17; Admin Dose 5 MG; Start 11/23/16 at 09:00 Zolpidem Tartrate (Ambien) 5 mg HS PRN PO INSOMNIA Last administered on 00:42; Admin Dose 5 MG; Start 11/23/16 at 22:30 Epoetin Vishal (Epogen (Esrd)) 8,000 units TuThSa@17 SC Last administered on 17:29; Admin Dose 8,000 UNITS; Start 11/24/16 at 17:00 Nifedipine (Procardia Xl) 30 mg BID PO Last administered on 11/28/16 21:17; Admin Dose 30 MG; Start 11/24/16 at 21:00 Assessment/Plan Chief Complaint/Hosp Course GI bleeding Problems: (1) Lower GI bleed (2) Colitis (3) Thickening of wall of gallbladder (4) Colon polyps Additional Assessment/Plan bleeding stopped follow up pathology from colonoscopy bx: Dr Ganga Dyer has agreed to take over case if pt needs a colectomy for colon polyps as he can offer robotic resection with less pain/smaller incisions ERCP reassuring for no stones/PSC will sign off case. please have patient follow up with Dr Neo Dyer for colon polyps arian after discharge LOUIE JACK Nov 29, 2016 07:04
[2016-11-29] MEDS: SEVELAMER CARBONATE 0.8 GM PKT PO SCH ×3 (07:55→16:48)
--- NOTE | 2016-11-29 08:16 | QN ---
Documentation Comment Patient with worsening mentation. Patient s/p CT scan of brain and notified of worsening bleeding in the brain. Call made out to Dr. Beckett neurosurgoeluciano. Will follow up ANTONIO BILLINGSLEY Nov 29, 2016 08:16
--- NOTE | 2016-11-29 08:24 | PN ---
DATE: 11/29/2016 SUBJECTIVE: The patient had no acute events overnight. This morning, the patient is lethargic, non -arousable. The patient is pending a stat CT scan of the brain to rule out stroke. No other events noted. OBJECTIVE: VITAL SIGNS: Blood pressure 155/72, respirations 23, pulse 80, temperature 97.6. HEENT: Head is normocephalic. NECK: Supple. HEART: Regular rate. LUNGS: Show diminished breath sounds at base. ABDOMEN: Soft, nontender to palpation. No rebound or guarding. EXTREMITIES: Negative for clubbing, cyanosis. No edema. DERMATOLOGIC: No rashes. MUSCULOSKELETAL: No joint effusions. NEUROLOGIC: The patient has minimal response, limited exam. LABORATORY DATA: Shows white count 5.6, hemoglobin 10.3, platelet count 222. Sodium 144, potassium 4.1, BUN 42, creatinine 6.95. ASSESSMENT AND PLAN: 1. Endstage renal disease. Plan for hemodialysis today, patient is hemodynamically stable. 2. Acute encephalopathy. Rule out cerebrovascular accident. The patient is pending CT scan of the brain. 3. Mineral bone disorder. Monitor calcium and phosphorus levels. 4. Anemia. Monitor hemoglobin and hematocrit levels. 5. Hypertension. Continue current blood pressure regimen. 6. Coronary artery disease. Continue current treatment plan. 7. Diabetes. Continue Accu-Cheks, insulin sliding scale. 8. Abdominal pain, pancreatitis. The patient is status post endoscopic retrograde cholangiopancrea tography with no evidence of stones. Continue to monitor. Follow up with surgery. 9. Paroxysmal atrial fibrillation, currently in sinus rhythm. Continue current treatment plan. Dictated By: ASIM GARCIA/GOPAL Conf#: [id number] DID#: [id number]
--- NOTE | 2016-11-29 08:42 | RADRPT ---
PROCEDURE: CT Brain without contrast. CLINICAL INDICATION: Trauma due to a fall 3 days ago. History of small left frontal subdural hemat olga measuring 0.2 x 1.3 cm. Today there is altered level of consciousness and unequal pupils. TECHNIQUE: A CT of the brain without contrast was performed utilizing axial sections from the skul l base through the vertex. The patient was scanned without intravenous contrast enhancement. Sagitta l and coronal reformatted images were obtained using the data from the axial images. Total exam DLP is 720.23 mGy-cm. CTDIvol is 43.16 mGy. One or more of the following dose reduction techniques we re used: Automated exposure control, adjustment of the mA and/or kV according to patient size, use o f iterative reconstruction technique. COMPARISON: CT scan of the brain dated 11/26/2016 which demonstrated atrophy, microangiopathic isc hemic change, atherosclerosis, bilateral frontal subdural hygromas or atrophy, small left frontal ac [place] subdural hematoma measuring 0.2 x 1.3 cm with no mass effect. FINDINGS: There is diffuse edema throughout the left cerebral hemisphere. The yang and white matter differenti ation is otherwise normal. There is a large left acute subdural hematoma measuring 13.8 x 3.4 x 10.1 cm in AP, transverse, and cranial caudal dimensions. Acute hemorrhage extends into the left side of the falx posteriorly measu ring 2.9 by 0.5 cm, and along the left tentorium measuring 0.6 by 3.3 cm. There is severe mass effe ct with shift of midline structures to the right measuring 2.4 cm. There is enlargement of the right temporal horn consistent with trapped ventricle. There is effacement of the basal cisterns consiste nt with uncal herniation. There is no intraparenchymal hemorrhage. There is no intraventricular hemorrhage. There is enlargement of the ventricles and subarachnoid spaces consistent with atrophy and vascular calcifications are present consistent with atherosclerosis. There is no skull fracture or lytic lesion. IMPRESSION: 1. Large acute left subdural hematoma measuring 13.8 x 3.4 x 10.1 cm with marked mass effect and un blanco herniation. 2. Shift of midline structures to the right measuring 2.4 cm. 3. No intraparenchymal hemorrhage. Call report: A call report of the findings was made to the referring physician (Hospitalist) and Dr Kelsey Beckett on 11/30/2015 at 0805 hours. RPTAT: QQ .Vasquez Hector MD, MD Date Time Electronically viewed and signed by .Vasquez Hector MD, MD on 11/29/2016 08:41 .R/
[2016-11-29] MEDS: predniSONE 5 MG TAB PO SCH ×2 (09:00→23:00)
[2016-11-29] MEDS: NIFEdipine (XL) 30 MG TAB PO SCH (09:00)
[2016-11-29] MEDS: METOPROLOL 50 MG TAB PO SCH (09:00)
[2016-11-29] MEDS: PIPER-TAZO 2.25 GM (PMX) 50 ML IVPB SCH (09:00)
[2016-11-29] MEDS: MULTIVIT/CA CARB/B CMPLX/FA TAB PO SCH (09:00)
[2016-11-29 09:12] LABS: INR 1.04; PROTIME 13.6 Sec (12.2-14.2); PT RATIO 1.1
[2016-11-29 09:13] LABS: PARTIAL THROMBOPLASTIN TIME 35.4 Sec (25.0-35.0)
--- NOTE | 2016-11-29 09:22 | EN ---
Date/Time of Note Date/Time of Note DATE: 11/29/16 TIME: 09:17 ER Progress Note I have been consulted to see the patient for intubation. The managing team had diagnosed the patient was significant intracranial hemorrhage and acute subdural hematoma with large mass-effect and uncal herniation. The patient was not protecting her airway and required airway protection. On exam: General: No significant neurologic activity, not protecting airway Head: Normocephalic, atraumatic. Eyes: Dilated and blown left pupil ENT: Very dry mucous membranes Neck: Supple, no lymphadenopathy Respiratory: Decreased respiratory effort Cardiovascular: RRR, no murmurs, rubs, or gallops Abdominal: Soft, non-tender, non-distended, no peritoneal signs : Deferred MSK: Limited movement of all 4 extremities, no bony abnormalities Neurologic: Limited exam, and encephalopathic, limited movement of all 4 extremities Skin: No rash Psych: Unable to assess Procedure(s): Intubation Note: Indication: Airway protection Consent: This was an emergent situation, implied consent was observed RSI Medications: Etomidate 20 mg, Rocuronium 100 mg Tube size: 7.5 Secured at: 22 at the lip Procedure: Endotracheal intubation was performed. The patient was preoxygenated with supplemental oxygen, the room was set up with emergent airway equipment including sod-keyoj-aere, suction, adjunct airways. Direct visualization of the cords was performed with direct laryngoscopy using a 4.0 Mac blade, insertion of the endotracheal tube through the cords was visualized by the log yard derrick operator. Bilateral breath sounds were auscultated, color change was observed. The tube was then secured in a postintubation chest x-ray was ordered. The patient tolerated the procedure well there were no complications. Chest x-ray: I reviewed and interpreted a 1 view of the chest Mediastinum: No enlargement Cardiac silhouette: No cardiomegaly Airspace: Clear lung yeh bilaterally without evidence of pneumothorax Bones: No evidence of fracture Endotracheal tube in good position above the mayelin Assessment and plan: The patient requires intubation for airway protection with evidence of significant intracranial hemorrhage and herniation. Upon arrival the patient was obtunded and not protecting her airway. No family was available. Emergent airway intervention was required. The managing team is consulting the neurosurgeon for further care. The patient carries significant risk of mortality given evidence of herniation. I advised further conversations with the family regarding goals of care. This will be done by the primary team. Diagnostic impression: Acute respiratory failure Acute intracranial hemorrhage SANDRA BECK MD Nov 29, 2016 09:22
[2016-11-29] MEDS ORDERED: MANNITOL 25% 50 ML INJ IV* ONE (09:30)
[2016-11-29 09:50] LABS: ABNORMAL IP MESSAGE 1; BASOPHILS % 0.2 % (0.0-2.0); HEMATOCRIT 26.3 % (42.0-52.0); HEMOGLOBIN 8.3 g/dl (14.0-18.0); LYMPHOCYTES # 0.5 10^3/ul (0.8-2.9); LYMPHOCYTES % 5.6 % (15.0-51.0); MEAN CORPUSCULAR HEMOGLOBIN 27.1 pg (29.0-33.0); MEAN CORPUSCULAR HGB CONC 31.6 g/dl (32.0-37.0); MEAN CORPUSCULAR VOLUME 85.9 fl (82.0-101.0); MEAN PLATELET VOLUME 10.3 fl (7.4-10.4); MONOCYTE # 0.6 10^3/ul (0.3-0.9); MONOCYTES % 7.3 % (0.0-11.0); NEUTROPHIL # 7.4 10^3/ul (1.6-7.5); NEUTROPHILS % 85.9 % (39.0-77.0); NUCLEATED RED BLOOD CELLS% 0.3 /100WBC (0.0-0.0); PLATELET COUNT 221 10^3/UL (140-415); POSITIVE DIFF @See below; RED BLOOD COUNT 3.06 10^6/ul (4.70-6.10); RED CELL DISTRIBUTION WIDTH 17.3 % (11.5-14.5); WHITE BLOOD COUNT 8.6 10^3/ul (4.8-10.8)
[2016-11-29] MEDS ORDERED: THROMBIN 5000 UNIT VIAL ONE (09:55)
[2016-11-29] MEDS ORDERED: LIDOCAINE 2%/EPI 30 ML INJ ONE (09:55)
[2016-11-29] MEDS ORDERED: GELATIN SIZE 100 SPONGE ONE (09:55)
[2016-11-29] MEDS ORDERED: POLYMYXIN/BACITRACIN 1L IRRIG ONE (09:55)
[2016-11-29] MEDS ORDERED: SURGIFOAM POWDER 1 GM KIT ONE (09:55)
--- NOTE | 2016-11-29 09:57 | RADRPT ---
PROCEDURE: XR Chest 1 View. CLINICAL INDICATION: Shortness of breath. Status post intubation. TECHNIQUE: AP view of the chest was obtained. COMPARISON: November 23, 2016 FINDINGS: The heart size is within normal limits. Calcified atherosclerosis is noted in the aorta. Endotrache al tube has its tip approximately 4.8 cm above the mayelin. The lungs are hyperexpanded. Medial retro cardiac opacity is identified. Small right pleural effusion with associated basilar atelectasis/infi ltrate is identified. The osseous structures are grossly intact. IMPRESSION: Calcified atherosclerosis in the aorta. Endotracheal tube with its tip approximately 4.8 cm above the mayelin. Small right pleural effusion with associated basilar atelectasis/infiltrate. Medial retrocardiac opacity that may reflect left lower lobe atelectasis or infiltrate combined with small pleural effusion. RPTAT: AA .David Arana MD, Date Time Electronically viewed and signed by .David Arana MD, on 11/29/2016 09:56 .P/
--- NOTE | 2016-11-29 09:57 | RADRPT ---
PROCEDURE: X-ray fluoroscopy guidance CLINICAL INDICATION: Abdominal pain, ERCP, fluoroscopic guidance TECHNIQUE: Fluoroscopic guidance was utilized for an intraoperative procedure. COMPARISON: None available FINDINGS: Fluoroscopic guidance was utilized for and intraoperative procedure. 3.05 minutes of fluoroscopy khadijah e was utilized for the procedure. 3 x-ray images were obtained during the procedure in progress. Sarmad ling defects are identified in the common bile duct. Mild prominence of the pancreatic duct is seen. IMPRESSION: X-ray fluoroscopic guidance utilized for intraoperative procedure. Filling defects in the common bile duct, possibly reflecting stones, clot or injected gas. Mild prominence of the pancreatic duct. Please see procedure note for details. RPTAT: AA .David Arana MD, Date Time Electronically viewed and signed by .David Arana MD, MD on 11/29/2016 09:57 .P/
[2016-11-29] MEDS ORDERED: MANNITOL 20% 250 ML IV ONE (10:00)
[2016-11-29] MEDS ORDERED: HEPARIN 1000 UNITS/NS (A-LINE) 0 ML ONE (10:04)
[2016-11-29 10:06] LABS: CALCIUM 9.1 mg/dl (8.4-10.2); CREATININE 8.37 mg/dl (0.61-1.24); MAGNESIUM 2.7 mg/dl (1.7-2.5); PHOSPHORUS 6.7 mg/dl (2.5-4.9); POTASSIUM 4.2 mmol/L (3.5-5.1)
[2016-11-29 10:25] LABS: AADO2 Arterial 177.4 mmHg (7.0-24.0); Allen Test ACCEPTAB; Arterial COHb 0.3 % (0.0-3.0); Arterial Fraction of Oxyhgb 98.2 % (93.0-99.0); Arterial HCO3 16.3 mmol/L (22.0-26.0); Arterial MetHb 0.3 % (0.0-1.5); Arterial Total Hemglobin 10.1 g/dl (12.0-18.0); MODE VENT - AC
[2016-11-29] MEDS ORDERED: ARTIFICIAL TEARS 15 ML OPH BOTH EYES PRN (10:30)
[2016-11-29] MEDS ORDERED: DIMETHICONE STICK TOP PRN (10:30)
[2016-11-29] MEDS: LORAZEPAM 2 MG INJ IM PRN ×2 (10:52→18:52)
[2016-11-29] MEDS: morphine (DRIP) 100 MG/100 ML 100 ML IV SCH ×2 (10:52→23:13)
[2016-11-29] MEDS ORDERED: MANNITOL 20% 125 ML IV PRN (11:00)
--- NOTE | 2016-11-29 15:06 | PN ---
Date/Time of Note Date/Time of Note DATE: 11/29/16 TIME: 15:02 Assessment/Plan VTE Prophylaxis VTE Prophylaxis Intervention: SCD's Lines/Catheters IV Catheter Type (from [facility]): Peripheral IV Urinary Cath still in place: No Assessment/Plan Chief Complaint/Hosp Course Assessment and plan 1. Sepsis secondary to underlying colitis. Continue antibiotics. Cultures negative so far. 2. Abdominal pain likely secondary to colitis. Patient did have MRCP showing irregular intraluminal filling defects within the common bile duct, which is nondilated. Moderate to severe intrahepatic biliary ductal dilatation with areas of alternating stricturing and dilatation and scattered intraluminal filling defects throughout the intrahepatic ducts continue with GI recommendations. 3. 2 large sigmoid polyps is 45 cm in size) with oozing of blood. Patient status post EGD/colonoscopy. Resection not done due to high risk of bleeding. Follow-up pathology. 4. ESRD . HD per hogshead hooper 5. Paroxysmal atrial fibrillation. Stable at present. Continue on beta- hector. 6. Hypothyroidism. Continue on Synthroid 7. Essential hypertension. Continue antihypertensives and adjust as needed 8. Anemia of chronic disease. Continue Neupogen 9. Dyslipidemia. 10. History of prostate cancer. Continue on prednisone 11. Status post fall (unwitnessed) on November 26, 2016. Patient does show CT scan of the brain with bilateral predominantly chronic subdural collections with some minimal acute component of the left. Neurosurgeon is following. Disposition and plan: Patient did have a code stroke called this morning and had a CT scan of the brain Showing large acute left subdural hematoma measuring 13.8 x 2.4 x 10.1 cm with marked mass-effect and uncal herniation. Neurosurgeon was aware. Prognosis is poor. Had lengthy discussion with family. They have decided for DNR status. Tentative plan for comfort measures and terminal extubation once family members arrive. Will get lat[place] studies director/ increased per patient's family's request. Discussed plan of care with Dr. [place] Problems: Subjective 24 Hr Interval Summary Free Text/Dictation Patient in ICU. Intubated. Family at bedside. Exam/Review of Systems Vital Signs Vitals Vital Signs Date Time Temp Pulse Resp B/P Pulse Ox O2 Delivery O2 Flow Rate FiO2 11/29/16 12:30 78 22 123/59 100 Mechanical Ventilator 11/29/16 12:00 98.2 11/29/16 08:35 100 11/29/16 08:15 4.0 Intake and Output 11/28/16 11/28/16 11/29/16 15:00 23:00 07:00 Intake Total 70 ml 200 ml Balance 70 ml 200 ml Exam Constitutional: other (Intubated) Eyes: other (Dilated fixed left pupil) Neck: supple, No jvd Respiratory: other Cardiovascular: other Gastrointestinal: non-tender, soft (Regular rate) Neurological: other (Intubated) Results Result Diagram: 11/29/1631 11/29/1631 Results 24 hrs Laboratory Tests Test 11/28/16 16:27 11/29/16 07:38 11/29/16 07:40 11/29/16 07:44 Bedside Glucose 112 184 CA 19-9 Antigen 43.4 H Prothrombin Time 13.6 Prothrombin Time Ratio 1.1 INR International Normalized Ratio 1.04 Activated Partial Thromboplast Time 35.4 H Test 11/29/16 08:50 11/29/16 09:31 11/29/16 12:51 Blood Gas Specimen Source Blood arterial Arterial Blood Date Drawn 11/29/2016 9:50:20 AM Arterial Blood pH (Temp corrected) 7.469 H Arterial Blood pCO2 (Temp correct) 23.0 L Arterial Blood pO2 (Temp corrected) 512.6 H Arterial Blood HCO3 16.3 L Arterial Blood Base Excess -6.0 L Arterial Blood Oxygen Saturation 98.8 Shahriar Test ACCEPTAB Arterial Blood Gas Puncture Site Right Radial Arterial Blood Carboxyhemoglobin 0.3 Arterial Blood Methemoglobin 0.3 Blood Gas A-a O2 Differential 177.4 H Oxyhemoglobin Percent 98.2 Total Hemoglobin 10.1 L Blood Gas Temperature 37.0 Blood Gas Respiration Rate 22.0 Blood Gas Actual Respiration Rate 22 Blood Gas Modality VENT - AC FiO2 100.0 Blood Gas Tidal Volume 500.0 Blood Gas Low PEEP Setting 5.0 Blood Gas Notified Whom JLD Blood Gas Notified Time 11/29/2016 10:25:16 AM White Blood Count 8.6 # Red Blood Count 3.06 #L Hemoglobin 8.3 L Hematocrit 26.3 #L Mean Corpuscular Volume 85.9 Mean Corpuscular Hemoglobin 27.1 L Mean Corpuscular Hemoglobin Concent 31.6 L Red Cell Distribution Width 17.3 H Platelet Count 221 Mean Platelet Volume 10.3 Neutrophils % 85.9 H Lymphocytes % 5.6 L Monocytes % 7.3 Eosinophils % 0.0 Basophils % 0.2 Nucleated Red Blood Cells % 0.3 H Neutrophils # 7.4 Lymphocytes # 0.5 L Monocytes # 0.6 Eosinophils # 0.0 Basophils # 0.0 Nucleated Red Blood Cells # 0.0 Sodium Level 144 Potassium Level 4.2 Chloride Level 107 Carbon Dioxide Level 18 L Anion Gap 23 H Blood Urea Nitrogen 57 H Creatinine 8.37 H Glucose Level 174 Calcium Level 9.1 Phosphorus Level 6.7 #H Magnesium Level 2.7 H Lab Scanned Report REFERENCE LAB Medications Medications Current Medications Ondansetron HCl (Zofran Inj) 4 mg Q6H PRN IV NAUSEA AND/OR VOMITING; Start at 02:00 Acetaminophen (Tylenol Tab) 650 mg Q6H PRN PO PAIN LEVEL 1-3 OR FEVER Last administered on 11/24/16 11:38; Admin Dose 650 MG; Start 11/23/16 at 02:00 Morphine Sulfate (morphine) 2 mg Q4H PRN IV PAIN LEVEL 7-10 Last administered on 11/26/16 04:51; Admin Dose 2 MG; Start 11/23/16 at 02:00 Pantoprazole (Protonix Iv) 40 mg DAILY@06 IV Last administered on 11/29/16 05 :15; Admin Dose 40 MG; Start 11/23/16 at 06:00 Hydralazine HCl (Apresoline) 10 mg Q4H PRN IV ELEVATED SYSTOLIC BP Last administered on 11/27/16 16:33; Admin Dose 10 MG; Start 11/23/16 at 02:00 Hydralazine HCl 20 mg 20 mg Q6H PRN IV ELEVATED SYSTOLIC BP Last administered on 11/28/16 10:36; Admin Dose 20 MG; Start 11/23/16 at 02:00 Piperacillin Sod/ Tazobactam Sod (Zosyn 2.25gm/ 50ml (Pmx)) 50 ml @ 100 mls/hr Q12 IVPB Last administered on 11/28/16 21:17; Admin Dose 100 MLS/HR; Start 11/23/16 at 02:00 Metoprolol Tartrate (Lopressor) 50 mg BID PO Last administered on 11/28/16 21 :18; Admin Dose 50 MG; Start 11/23/16 at 09:00 Multivit/Ca Carb/ B Cmplx/FA/Prenat (Darcy-Jean-Pierre) 1 tab DAILY PO Last administered on 11/27/16 09:13; Admin Dose 1 TAB; Start 11/23/16 at 09:00 Prednisone (Prednisone) 5 mg BID PO Last administered on 11/28/16 21:17; Admin Dose 5 MG; Start 11/23/16 at 09:00 Zolpidem Tartrate (Ambien) 5 mg HS PRN PO INSOMNIA Last administered on 00:42; Admin Dose 5 MG; Start 11/23/16 at 22:30 Epoetin Vishal (Epogen (Esrd)) 8,000 units TuThSa@17 SC Last administered on 17:29; Admin Dose 8,000 UNITS; Start 11/24/16 at 17:00 Nifedipine 30 mg 30 mg BID PO Last administered on 11/28/16 21:17; Admin Dose 30 MG; Start 11/24/16 at 21:00 Mannitol 125 ml @ 0 mls/hr ONCE PRN IV IF BP STABLE; Start 11/29/16 at 11:00; Stop 11/29/16 at 16:00 Morphine Sulfate/ Sodium Chloride (morphine) 100 ml @ 1 mls/hr TITRATE IV Last administered on 11/29/16 10:52; Admin Dose 4 MLS/HR; Start 11/29/16 at 10:30 Lorazepam (Ativan) 1 mg Q30MIN PRN IM AGITATION/ANXIETY Last administered on 10:52; Admin Dose 1 MG; Start 11/29/16 at 11:00 ANTONIO BILLINGSLEY Nov 29, 2016 15:06
--- NOTE | 2016-11-29 15:17 | PN ---
Date/Time of Note Date/Time of Note DATE: 11/29/16 TIME: 15:11 Assessment/Plan VTE Prophylaxis VTE Prophylaxis Intervention: contraindicated (comfort meausres only), other Lines/Catheters [facility] Peripheral IV Urinary Cath still in place: No Assessment/Plan Chief Complaint/Hosp Course Assessment: Pancreatitis- improving Anemia/ now stable likely secondary to chronic disease and Colitis EGD antral and body erythema: biopsy taken to r/o H. pylori Mallery cabrera tear, healing Colonoscopy- with tattoo of proximal and distal region of the sigmoid polyps Two large sigmoid polyps, about 4-5 cm in size, oozing of blood, likely the bleeding source. Biopsies taken to r/o dysplasia. 1 cm transverse colon polyp s/p forcep polypectomy patchy erythema Diverticulosis in the sigmoid internal hemorrhoids. ESRD- on HD Paroxysmal A-fib Code stroke this Ct showing large acute left subdural hematoma measuring 13.8x2.4x10.1x with marked mass-effect and uncal herniation Plan: Pt now a DNR with comfort measures only Patient seen in collaboration with Dr. Guallpa Subjective: Course reviewed with nursing staff Patient interviewed and examined All labs, imaging and other results reviewed S/p large acute left subdural hematoma measuring 13.8x2.4x10.1x with marked mass -effect and uncal herniation this am, Medical team spoke with family plan to change code status to DNR and provide comfort measures, with plan to extubate once family arrives. Problems: Exam/Review of Systems Vital Signs Vitals Vital Signs Date Time Temp Pulse Resp B/P Pulse Ox O2 Delivery O2 Flow Rate FiO2 11/29/16 12:30 78 22 123/59 100 Mechanical Ventilator 11/29/16 12:00 98.2 11/29/16 08:35 100 11/29/16 08:15 4.0 Intake and Output 11/28/16 11/28/16 11/29/16 15:00 23:00 07:00 Intake Total 70 ml 200 ml Balance 70 ml 200 ml Results Result Diagram: 11/29/16 0931 11/29/16 0931 Results 24 hrs Laboratory Tests Test 11/28/16 16:27 11/29/16 07:38 11/29/16 07:40 11/29/16 07:44 Bedside Glucose 112 184 CA 19-9 Antigen 43.4 H Prothrombin Time 13.6 Prothrombin Time Ratio 1.1 INR International Normalized Ratio 1.04 Activated Partial Thromboplast Time 35.4 H Test 11/29/16 08:50 11/29/16 09:31 11/29/16 12:51 Blood Gas Specimen Source Blood arterial Arterial Blood Date Drawn 11/29/2016 9:50:20 AM Arterial Blood pH (Temp corrected) 7.469 H Arterial Blood pCO2 (Temp correct) 23.0 L Arterial Blood pO2 (Temp corrected) 512.6 H Arterial Blood HCO3 16.3 L Arterial Blood Base Excess -6.0 L Arterial Blood Oxygen Saturation 98.8 Shahriar Test ACCEPTAB Arterial Blood Gas Puncture Site Right Radial Arterial Blood Carboxyhemoglobin 0.3 Arterial Blood Methemoglobin 0.3 Blood Gas A-a O2 Differential 177.4 H Oxyhemoglobin Percent 98.2 Total Hemoglobin 10.1 L Blood Gas Temperature 37.0 Blood Gas Respiration Rate 22.0 Blood Gas Actual Respiration Rate 22 Blood Gas Modality VENT - AC FiO2 100.0 Blood Gas Tidal Volume 500.0 Blood Gas Low PEEP Setting 5.0 Blood Gas Notified Whom JLD Blood Gas Notified Time 11/29/2016 10:25:16 AM White Blood Count 8.6 # Red Blood Count 3.06 #L Hemoglobin 8.3 L Hematocrit 26.3 #L Mean Corpuscular Volume 85.9 Mean Corpuscular Hemoglobin 27.1 L Mean Corpuscular Hemoglobin Concent 31.6 L Red Cell Distribution Width 17.3 H Platelet Count 221 Mean Platelet Volume 10.3 Neutrophils % 85.9 H Lymphocytes % 5.6 L Monocytes % 7.3 Eosinophils % 0.0 Basophils % 0.2 Nucleated Red Blood Cells % 0.3 H Neutrophils # 7.4 Lymphocytes # 0.5 L Monocytes # 0.6 Eosinophils # 0.0 Basophils # 0.0 Nucleated Red Blood Cells # 0.0 Sodium Level 144 Potassium Level 4.2 Chloride Level 107 Carbon Dioxide Level 18 L Anion Gap 23 H Blood Urea Nitrogen 57 H Creatinine 8.37 H Glucose Level 174 Calcium Level 9.1 Phosphorus Level 6.7 #H Magnesium Level 2.7 H Lab Scanned Report REFERENCE LAB Medications Medications Current Medications Ondansetron HCl (Zofran Inj) 4 mg Q6H PRN IV NAUSEA AND/OR VOMITING; Start at 02:00 Acetaminophen (Tylenol Tab) 650 mg Q6H PRN PO PAIN LEVEL 1-3 OR FEVER Last administered on 11/24/16 11:38; Admin Dose 650 MG; Start 11/23/16 at 02:00 Morphine Sulfate (morphine) 2 mg Q4H PRN IV PAIN LEVEL 7-10 Last administered on 11/26/16 04:51; Admin Dose 2 MG; Start 11/23/16 at 02:00 Pantoprazole (Protonix Iv) 40 mg DAILY@06 IV Last administered on 11/29/16 05 :15; Admin Dose 40 MG; Start 11/23/16 at 06:00 Hydralazine HCl (Apresoline) 10 mg Q4H PRN IV ELEVATED SYSTOLIC BP Last administered on 11/27/16 16:33; Admin Dose 10 MG; Start 11/23/16 at 02:00 Hydralazine HCl 20 mg 20 mg Q6H PRN IV ELEVATED SYSTOLIC BP Last administered on 11/28/16 10:36; Admin Dose 20 MG; Start 11/23/16 at 02:00 Piperacillin Sod/ Tazobactam Sod (Zosyn 2.25gm/ 50ml (Pmx)) 50 ml @ 100 mls/hr Q12 IVPB Last administered on 11/28/16 21:17; Admin Dose 100 MLS/HR; Start 11/23/16 at 02:00 Metoprolol Tartrate (Lopressor) 50 mg BID PO Last administered on 11/28/16 21 :18; Admin Dose 50 MG; Start 11/23/16 at 09:00 Multivit/Ca Carb/ B Cmplx/FA/Prenat (Darcy-Jean-Pierre) 1 tab DAILY PO Last administered on 11/27/16 09:13; Admin Dose 1 TAB; Start 11/23/16 at 09:00 Prednisone (Prednisone) 5 mg BID PO Last administered on 11/28/16 21:17; Admin Dose 5 MG; Start 11/23/16 at 09:00 Zolpidem Tartrate (Ambien) 5 mg HS PRN PO INSOMNIA Last administered on 00:42; Admin Dose 5 MG; Start 11/23/16 at 22:30 Epoetin Vishal (Epogen (Esrd)) 8,000 units TuThSa@17 SC Last administered on 17:29; Admin Dose 8,000 UNITS; Start 11/24/16 at 17:00 Nifedipine 30 mg 30 mg BID PO Last administered on 11/28/16 21:17; Admin Dose 30 MG; Start 11/24/16 at 21:00 Mannitol 125 ml @ 0 mls/hr ONCE PRN IV IF BP STABLE; Start 11/29/16 at 11:00; Stop 11/29/16 at 16:00 Morphine Sulfate/ Sodium Chloride (morphine) 100 ml @ 1 mls/hr TITRATE IV Last administered on 11/29/16 10:52; Admin Dose 4 MLS/HR; Start 11/29/16 at 10:30 Lorazepam (Ativan) 1 mg Q30MIN PRN IM AGITATION/ANXIETY Last administered on 10:52; Admin Dose 1 MG; Start 11/29/16 at 11:00 LUIS RING Nov 29, 2016 15:17
[2016-11-29] MEDS: EPOETIN 4000 UNITS/1 ML INJ (ESRD) SC SCH (16:48)
--- NOTE | 2016-11-29 21:38 | PN ---
Date/Time of Note Date/Time of Note DATE: 11/29/16 TIME: 11:00 Assessment/Plan VTE Prophylaxis VTE Prophylaxis Intervention: SCD's Lines/Catheters [facility] Type ([facility] Peripheral IV Urinary Cath still in place: No Assessment/Plan Assessment/Plan Date of progress note: 11/29/2016 The patient was at his baseline neurologic status up until this morning where he was found to have altered level of consciousness and in a code was called. The patient was subsequently intubated and has been transferred to the intensive care unit for further management. There is no new history of the patient having had a fall or trauma to the head. The new head CT was done that shows a large acute subdural hematoma and neurosurgery is re-consulted. The patient's left pupil is 5 mm and unreactive his right pupil is 3 mm and sluggish. There is no movement of the upper or lower extremities to voice or pain. There is no eye opening to voice or pain. The patient does not follow commands. He is intubated and on the ventilator. I immediately notified the operating room and the already scheduled surgeries were being bumped so that an emergent craniotomy for evacuation of the subdural hematoma can be done if the family wishes. However, after discussing the patient's new head CT findings and the patient's neurologic status changes with the patient's daughter who appears to be the spokes person for the family, the patient's family decided that given the patient's many prior comorbidities including the end-stage renal disease, prostate cancer, coronary artery disease and is most recently diagnosed pancreatitis that they do not wish to have the patient endure further suffering and that they do not wish for the patient to undergo the above surgery. Patient's daughter tells me that over the past number of months, the patient's overall status has deteriorated and the patient has little motivation to want to get out of bed and walk around and he has overall felt ill and has been in and out of hospitals for various medical reasons over the past several months. I also tried to emphasize that if we are to do any type of neurosurgical intervention it needs to be done either now on an emergent basis as doing the surgery later on we'll not be of any benefit. The patient's daughter tells me that the family fully understands the above discussion and do not wish to proceed with any neurosurgical intervention. The patient has also been made a DO NOT RESUSCITATE status. DAXA FERNÁNDEZ MD Nov 29, 2016 21:38
--- NOTE | 2016-11-29 22:44 | RADRPT ---
Vent Rate: 75 bpm RR Interval: 0 msec MA Interval: 140 msec QRS Duration: 86 msec QT Interval: 430 msec QTC Interval: 480 msec P-R-T [place]: 74 - 65 - 78 degrees Normal sinus rhythm Normal ECG Electronically Signed By: Skyler Isaac [id number]
[2016-11-30] MEDS ORDERED: ROCURONIUM 50 MG INJ ONE
[2016-11-30] MEDS ORDERED: ETOMIDATE 20 MG INJ ONE
[2016-11-30 02:50] VITALS: BP 136/63; PULSE 76; RESP 18
[2016-11-30] MEDS: PANTOPRAZOLE 40 MG INJ IV SCH (05:47)
--- NOTE | 2016-11-30 07:19 | CONS ---
Date/Time of Note Date/Time of Note DATE: 11/30/16 TIME: 07:10 Consultation Date/Type/Reason Admit Date/Time Nov 22, 2016 at 20:45 Type of Consultation: Palliative care Hx of Present Illness Family conference Hemorrhagic stroke Encephalopathy secondary to the above Acute respiratory failure Abdominal pain/colitis First of all family members have decided upon comfort measures after a very appropriate conversation with patient's clinician Lyndsey Das NP. When I examined the patient he was in the intensive care unit all his first-degree family members with her including and children. Patient's underlying medical problem was reviewed including all of the above the voice for the family were patient's son and daughter, background social history reviewed especially patient expressed family members he would not want to live in a long- term vegetative condition. At the time I examined him he was intubated on a low -dose morphine drip. Family is clear understanding of his underlying serious medical condition hopes were that he would not suffer at the end of life, once again this was not an acceptable quality of life per family members. They fears concerns strength were covered, there were no cultural issues that need to be addressed. Number very happy with the level of communication that had occurred his estimated prognosis is grim and he will probably within the next few days. We should family members will address pain and physical symptom psychosocial social spiritual existential and cultural concerns were shared.. There were no ethical legal surrogate issues his CODE STATUS once again has been changed to comfort measures. There was no advanced directive DURABLE POWER OF [employer] SUPER[employer]OR for healthcare or polst form executed. After conversation with family members and I presented suggestion to discontinue at least AC settings on the ventilator and possibly switch to T-tube or extubation based on patient's comfort level and his prior wishes not to live by artificial means. Family members will discuss. Constitutional: improved Eyes: no complaints ENT: no complaints Respiratory: shortness of breath Cardiovascular: no complaints Gastrointestinal: blood, decreased appetite, diarrhea, flatus, pain, No constipation, No nausea, No vomiting Genitourinary: no complaints, other (ESRD) Musculoskeletal: no complaints Skin: no complaints Endocrine: dry skin Psychological: no complaints Past Medical History Medical History: cancer (prostate), diabetes, hypertension Past Surgical History Past Surgical Hx: other (Dialysis fistula) Social History Alcohol Use: none Smoking Status: Former smoker Drug Use: none Exam/Review of Systems Vital Signs Vitals Vital Signs Date Time Temp Pulse Resp B/P Pulse Ox O2 Delivery O2 Flow Rate FiO2 11/30/16 02:50 97.0 76 18 136/63 100 Nasal Cannula 3.0 11/29/16 17:45 50 Intake and Output 11/29/16 11/29/16 11/30/16 15:00 23:00 07:00 Intake Total 27 ml 28 ml 105 ml Output Total 0 ml Balance 27 ml 28 ml 105 ml Exam Respiratory: other (Intubated) Neurological: other (Not communicative no response to verbal or tactile stimulation no spontaneous movements oculocephalics sluggish not overbreathing ventilator) Results Result Diagram: 11/29/1631 11/29/1631 Results 24 hrs Laboratory Tests Test 11/29/16 07:38 11/29/16 07:40 11/29/16 07:44 11/29/16 08:50 Bedside Glucose 184 CA 19-9 Antigen 43.4 H Prothrombin Time 13.6 Prothrombin Time Ratio 1.1 INR International Normalized Ratio 1.04 Activated Partial Thromboplast Time 35.4 H Blood Gas Specimen Source Blood arterial Arterial Blood Date Drawn 11/29/2016 9:50:20 AM Arterial Blood pH (Temp corrected) 7.469 H Arterial Blood pCO2 (Temp correct) 23.0 L Arterial Blood pO2 (Temp corrected) 512.6 H Arterial Blood HCO3 16.3 L Arterial Blood Base Excess -6.0 L Arterial Blood Oxygen Saturation 98.8 Shahriar Test ACCEPTAB Arterial Blood Gas Puncture Site Right Radial Arterial Blood Carboxyhemoglobin 0.3 Arterial Blood Methemoglobin 0.3 Blood Gas A-a O2 Differential 177.4 H Oxyhemoglobin Percent 98.2 Total Hemoglobin 10.1 L Blood Gas Temperature 37.0 Blood Gas Respiration Rate 22.0 Blood Gas Actual Respiration Rate 22 Blood Gas Modality VENT - AC FiO2 100.0 Blood Gas Tidal Volume 500.0 Blood Gas Low PEEP Setting 5.0 Blood Gas Notified Whom JLD Blood Gas Notified Time 11/29/2016 10:25:16 AM Test 11/29/16 09:31 11/29/16 12:51 White Blood Count 8.6 # Red Blood Count 3.06 #L Hemoglobin 8.3 L Hematocrit 26.3 #L Mean Corpuscular Volume 85.9 Mean Corpuscular Hemoglobin 27.1 L Mean Corpuscular Hemoglobin Concent 31.6 L Red Cell Distribution Width 17.3 H Platelet Count 221 Mean Platelet Volume 10.3 Neutrophils % 85.9 H Lymphocytes % 5.6 L Monocytes % 7.3 Eosinophils % 0.0 Basophils % 0.2 Nucleated Red Blood Cells % 0.3 H Neutrophils # 7.4 Lymphocytes # 0.5 L Monocytes # 0.6 Eosinophils # 0.0 Basophils # 0.0 Nucleated Red Blood Cells # 0.0 Sodium Level 144 Potassium Level 4.2 Chloride Level 107 Carbon Dioxide Level 18 L Anion Gap 23 H Blood Urea Nitrogen 57 H Creatinine 8.37 H Glucose Level 174 Calcium Level 9.1 Phosphorus Level 6.7 #H Magnesium Level 2.7 H Lab Scanned Report REFERENCE LAB Medications Medications Current Medications Ondansetron HCl (Zofran Inj) 4 mg Q6H PRN IV NAUSEA AND/OR VOMITING; Start at 02:00 Acetaminophen (Tylenol Tab) 650 mg Q6H PRN PO PAIN LEVEL 1-3 OR FEVER Last administered on 11/24/16 11:38; Admin Dose 650 MG; Start 11/23/16 at 02:00 Morphine Sulfate (morphine) 2 mg Q4H PRN IV PAIN LEVEL 7-10 Last administered on 11/26/16 04:51; Admin Dose 2 MG; Start 11/23/16 at 02:00 Pantoprazole (Protonix Iv) 40 mg DAILY@06 IV Last administered on 11/30/16 05 :47; Admin Dose 40 MG; Start 11/23/16 at 06:00 Hydralazine HCl (Apresoline) 10 mg Q4H PRN IV ELEVATED SYSTOLIC BP Last administered on 11/27/16 16:33; Admin Dose 10 MG; Start 11/23/16 at 02:00 Hydralazine HCl (Apresoline) 20 mg Q6H PRN IV ELEVATED SYSTOLIC BP Last administered on 11/28/16 10:36; Admin Dose 20 MG; Start 11/23/16 at 02:00 Prednisone 5 mg 5 mg BID PO Last administered on 11/28/16 21:17; Admin Dose 5 MG; Start 11/23/16 at 09:00 Morphine Sulfate/ Sodium Chloride (morphine) 100 ml @ 1 mls/hr TITRATE IV Last administered on 11/29/16 23:13; Admin Dose 10 MLS/HR; Start 11/29/16 at 10:30 Lorazepam (Ativan) 1 mg Q30MIN PRN IM AGITATION/ANXIETY Last administered on t 18:52; Admin Dose 1 MG; Start 11/29/16 at 11:00 ANN HOUSTON Nov 30, 2016 07:19
[2016-11-30] MEDS: predniSONE 5 MG TAB PO SCH (08:32)
--- NOTE | 2016-11-30 09:14 | PN ---
DATE: 11/30/2016 SUBJECTIVE: The patient has currently been placed on comfort measures. The patient had a CT scan y esterday which showed expansion of a hematoma and hemorrhagic stroke. The patient was terminally ex tubated on morphine drip. PHYSICAL EXAMINATION: VITAL SIGNS: Blood pressure 136/63, respirations 18, pulse 76. HEENT: Head is normocephalic. NECK: Supple. HEART: Regular rate. LUNGS: Shows diminished breath sounds at the base. ABDOMEN: Soft, nontender to palpation. No rebound, guarding. EXTREMITIES: Negative for clubbing, cyanosis, no edema. DERMATOLOGIC: No rashes. MUSCULOSKELETAL: No joint effusion. NEUROLOGIC: Minimal response. ASSESSMENT AND PLAN: 1. End stage renal disease. 2. Hemorrhagic stroke. 3. Mineral bone disorder. 4. Anemia. 5. Hypertension. 6. . 7. Diabetes. 8. Atrial fibrillation. PLAN: The patient is on comfort measures on morphine drip. Will sign off. Dictated By: ASIM GARCIA/GOPAL Conf#: [id number] DID#: [id number]
[2016-11-30] MEDS: morphine (DRIP) 100 MG/100 ML 100 ML IV SCH ×2 (09:25→19:33)
--- NOTE | 2016-11-30 11:06 | PN ---
Date/Time of Note Date/Time of Note DATE: 11/30/16 TIME: 11:03 Assessment/Plan VTE Prophylaxis VTE Prophylaxis Intervention: contraindicated Lines/Catheters IV Catheter Type (from [facility]): Peripheral IV Urinary Cath still in place: No Assessment/Plan Chief Complaint/Hosp Course Assessment: Pancreatitis- Anemia Colitis EGD antral and body erythema: biopsy taken to r/o H. pylori Mallery cabrera tear, healing Colonoscopy- with tattoo of proximal and distal region of the sigmoid polyps Two large sigmoid polyps, about 4-5 cm in size, oozing of blood, likely the bleeding source. Biopsies taken to r/o dysplasia. 1 cm transverse colon polyp s/p forcep polypectomy patchy erythema Diverticulosis in the sigmoid internal hemorrhoids. ESRD- on HD Paroxysmal A-fib Code stroke this Ct showing large acute left subdural hematoma measuring 13.8x2.4x10.1x with marked mass-effect and uncal herniation CODE STATUS CHANGED TO DNR, COMFORT MEASURES ONLY Plan: Pt now a DNR with comfort measures only Patient seen in collaboration with Dr. Guallpa Subjective: Course reviewed with nursing staff Patient interviewed and examined All labs, imaging and other results reviewed S/p large acute left subdural hematoma measuring 13.8x2.4x10.1x with marked mass -effect and uncal herniation this am, Medical team spoke with family plan to change code status to DNR and provide comfort measures extubated yesterday at 1930, pt continued to breath on his own and was transferred to the 4th floor. Family currently at bedside, patient on morphine drip.. Problems: Exam/Review of Systems Vital Signs Vitals Vital Signs Date Time Temp Pulse Resp B/P Pulse Ox O2 Delivery O2 Flow Rate FiO2 11/30/16 02:50 97.0 76 18 136/63 100 Nasal Cannula 3.0 11/29/16 17:45 50 Intake and Output 11/29/16 11/29/16 11/30/16 15:00 23:00 07:00 Intake Total 27 ml 28 ml 105 ml Output Total 0 ml Balance 27 ml 28 ml 105 ml Exam Constitutional: non-verbal Respiratory: normal air movement Cardiovascular: regular rate and rhythm Gastrointestinal: hepatomegaly, soft, No ascites, No distended, No firm, No mass, No rebound or guarding, No splenomegaly Results Result Diagram: 10/24/17 0931 10/24/17 0931 Results 24 hrs Laboratory Tests Test 11/29/16 12:51 Lab Scanned Report REFERENCE LAB Medications Medications Current Medications Ondansetron HCl (Zofran Inj) 4 mg Q6H PRN IV NAUSEA AND/OR VOMITING; Start at 02:00 Acetaminophen (Tylenol Tab) 650 mg Q6H PRN PO PAIN LEVEL 1-3 OR FEVER Last administered on 11/24/16 11:38; Admin Dose 650 MG; Start 11/23/16 at 02:00 Morphine Sulfate (morphine) 2 mg Q4H PRN IV PAIN LEVEL 7-10 Last administered on 11/26/16 04:51; Admin Dose 2 MG; Start 11/23/16 at 02:00 Pantoprazole (Protonix Iv) 40 mg DAILY@06 IV Last administered on 11/30/16 05 :47; Admin Dose 40 MG; Start 11/23/16 at 06:00 Hydralazine HCl (Apresoline) 10 mg Q4H PRN IV ELEVATED SYSTOLIC BP Last administered on 11/27/16 16:33; Admin Dose 10 MG; Start 11/23/16 at 02:00 Hydralazine HCl (Apresoline) 20 mg Q6H PRN IV ELEVATED SYSTOLIC BP Last administered on 11/28/16 10:36; Admin Dose 20 MG; Start 11/23/16 at 02:00 Prednisone 5 mg 5 mg BID PO Last administered on 11/28/16 21:17; Admin Dose 5 MG; Start 11/23/16 at 09:00 Morphine Sulfate/ Sodium Chloride (morphine) 100 ml @ 1 mls/hr TITRATE IV Last administered on 11/30/16 09:25; Admin Dose 10 MLS/HR; Start 11/29/16 at 10:30 Lorazepam (Ativan) 1 mg Q30MIN PRN IM AGITATION/ANXIETY Last administered on 18:52; Admin Dose 1 MG; Start 11/29/16 at 11:00 LUIS RING Nov 30, 2016 11:06
--- NOTE | 2016-11-30 13:37 | PN ---
Date/Time of Note Date/Time of Note DATE: 11/30/16 TIME: 13:35 Assessment/Plan Lines/Catheters IV Catheter Type (from [facility]): Peripheral IV Urinary Cath still in place: No Assessment/Plan Chief Complaint/Hosp Course Assessment and plan 1. Sepsis secondary to underlying colitis. 2. Abdominal pain likely secondary to colitis. 3. 2 large sigmoid polyps is 45 cm in size) with oozing of blood. 4. ESRD 5. Paroxysmal atrial fibrillation. 6. Hypothyroidism. 7. Essential hypertension. 8. Anemia of chronic disease. 9. Dyslipidemia. 10. History of prostate cancer. 11. Status post fall (unwitnessed) on November 26, 2016. Disposition and plan: On comfort measures. will get inpatient hospice k[facility] Discussed plan of care with Dr. France Problems: Subjective 24 Hr Interval Summary Free Text/Dictation with agonal breathing. on morphine drip Exam/Review of Systems Vital Signs Vitals Vital Signs Date Time Temp Pulse Resp B/P Pulse Ox O2 Delivery O2 Flow Rate FiO2 11/30/16 12:17 3.0 11/30/16 08:00 Nasal Cannula 11/30/16 02:50 97.0 76 18 136/63 100 11/29/16 17:45 50 Intake and Output 11/29/16 11/29/16 11/30/16 15:00 23:00 07:00 Intake Total 27 ml 28 ml 105 ml Output Total 0 ml Balance 27 ml 28 ml 105 ml Results Result Diagram: 11/29/1693011/29/16930 Medications Medications Current Medications Ondansetron HCl (Zofran Inj) 4 mg Q6H PRN IV NAUSEA AND/OR VOMITING; Start at 02:00 Acetaminophen (Tylenol Tab) 650 mg Q6H PRN PO PAIN LEVEL 1-3 OR FEVER Last administered on 11/24/16 11:38; Admin Dose 650 MG; Start 11/23/16 at 02:00 Morphine Sulfate (morphine) 2 mg Q4H PRN IV PAIN LEVEL 7-10 Last administered on 11/26/16 04:51; Admin Dose 2 MG; Start 11/23/16 at 02:00 Pantoprazole (Protonix Iv) 40 mg DAILY@06 IV Last administered on 11/30/16 05 :47; Admin Dose 40 MG; Start 11/23/16 at 06:00 Hydralazine HCl (Apresoline) 10 mg Q4H PRN IV ELEVATED SYSTOLIC BP Last administered on 11/27/16 16:33; Admin Dose 10 MG; Start 11/23/16 at 02:00 Hydralazine HCl (Apresoline) 20 mg Q6H PRN IV ELEVATED SYSTOLIC BP Last administered on 11/28/16 10:36; Admin Dose 20 MG; Start 11/23/16 at 02:00 Prednisone 5 mg 5 mg BID PO Last administered on 11/28/16 21:17; Admin Dose 5 MG; Start 11/23/16 at 09:00 Morphine Sulfate/ Sodium Chloride (morphine) 100 ml @ 1 mls/hr TITRATE IV Last administered on 11/30/16 09:25; Admin Dose 10 MLS/HR; Start 11/29/16 at 10:30 Lorazepam (Ativan) 1 mg Q30MIN PRN IM AGITATION/ANXIETY Last administered on 18:52; Admin Dose 1 MG; Start 11/29/16 at 11:00 ANTONIO BILLINGSLEY Nov 30, 2016 13:37
--- NOTE | 2016-11-30 16:44 | PDOCDIS ---
Discharge Instructions DIAGNOSIS Discharge Diagnosis 1. Sepsis secondary to underlying colitis. 2. Abdominal pain likely secondary to colitis. 3. 2 large sigmoid polyps is 45 cm in size) with oozing of blood. 4. ESRD 5. Paroxysmal atrial fibrillation. 6. Hypothyroidism. 7. Essential hypertension. 8. Anemia of chronic disease. 9. Dyslipidemia. 10. History of prostate cancer. 11. Status post fall (unwitnessed) on November 26, 2016. CONDITION Patient Condition: Critical HOME CARE INSTRUCTIONS: Special Diet: npo; clear liqs in AM FOLLOW UP/APPOINTMENTS Follow-up Plan Further care and management per hospice company ANTONIO BILLINGSLEY Nov 30, 2016 16:44
--- NOTE | 2016-11-30 16:45 | DS ---
Date/Time of Note Date/Time of Note DATE: 11/30/16 TIME: 16:44 Discharge Summary Admission/Discharge Info Admit Date/Time Nov 22, 2016 at 20:45 Discharge Date/Time Discharge Diagnosis 1. Sepsis secondary to underlying colitis. 2. Abdominal pain likely secondary to colitis. 3. 2 large sigmoid polyps is 45 cm in size) with oozing of blood. 4. ESRD 5. Paroxysmal atrial fibrillation. 6. Hypothyroidism. 7. Essential hypertension. 8. Anemia of chronic disease. 9. Dyslipidemia. 10. History of prostate cancer. 11. Status post fall (unwitnessed) on November 26, 2016. Hx of Present Illness Chief complaint: Abdominal pain, blood in stool This is a 76-year-old male who is discharged from [facility] 3 days ago after a week stay there for pancreatitis. Patient states that 2 days ago he began having some left lower quadrant pain with 4-5 episodes of diarrhea each day and today the diarrhea became mixed with blood. Blood is bright red. He also is having fever of 102 Denies any cough no dysuria no back pain no history of diverticulitis, no colon cancer. He is unsure if he had any recent antibiotic use. The patient is a dialysis patient had dialysis on Monday. Allergies: NKDA Medications: See [facility] Hospital Course Assessment and plan 1. Sepsis secondary to underlying colitis. 2. Abdominal pain likely secondary to colitis. 3. 2 large sigmoid polyps is 45 cm in size) with oozing of blood. 4. ESRD 5. Paroxysmal atrial fibrillation. 6. Hypothyroidism. 7. Essential hypertension. 8. Anemia of chronic disease. 9. Dyslipidemia. 10. History of prostate cancer. 11. Status post fall (unwitnessed) on November 26, 2016. Disposition and plan: On comfort measures. will get inpatient hospice kendy Discussed plan of care with Dr. France Geneva Meds Reported Medications Levothyroxine Sodium* (Levothyroxine Sodium*) 50 Mcg Tablet, 50 MCG PO BEFORE BREAKFAST, #30 TAB 11/22/16 Calcium Carbonate/Vitamin D3 (Oysco 500+D Tablet) 1 Each Tablet, 1 EACH PO BID, TAB 06/29/16 Sevelamer Carbonate* (Renvela*) 800 Mg Tablet, 0.8 GM PO WITH MEALS, TAB 06/29/16 Nifedipine* (Nifedipine ER*) 60 Mg Tablet.sa, 60 MG PO BID, TAB.SA 06/29/16 Metoprolol Tartrate* (Lopressor*) 50 Mg Tab, 50 MG PO BID, #60 TAB 06/29/16 Prednisone* (Prednisone*) 5 Mg Tab, 5 MG PO BID, TAB 06/29/16 Abiraterone Acetate (ZYTIGA) 250 Mg Tablet, 1000 MG PO QAM, TAB 06/29/16 Multivit/Ca Carb/B Cmplx/Fa* (Darcy-Jean-Pierre*) 1 Tab Tab, 1 TAB PO DAILY, TAB 06/29/16 Temazepam* (Temazepam*) 30 Mg Capsule, 30 MG PO HS Y for INSOMNIA, CAP 06/29/16 Aspirin* (Aspirin* Chew) 81 Mg Tab.chew, 81 MG PO DAILY, TAB.CHEW 06/29/16 Follow-up Plan Further care and management per hospice company Primary Care Provider DO ANALILIA Kent RONNELL Nov 30, 2016 16:45
[2016-11-30] MEDS ORDERED: ATROPINE 1% 5 ML OPH SL PRN (18:00)
[2016-11-30] MEDS ORDERED: LORAZEPAM 2 MG INJ IV PRN (18:00)
[2016-11-30] MEDS ORDERED: ACETAMINOPHEN 650 MG SUPP PR PRN (18:00)
--- NOTE | 2016-12-01 08:39 | HP ---
DATE OF ADMISSION: 11/22/2016 PRIMARY HOSPITAL DIAGNOSES: 1. Subdural hematoma. 2. Comorbid acute respiratory failure. 3. Abdominal colitis. 4. Prostate cancer. 5. End-stage renal disease on hemodialysis. CHIEF COMPLAINT AND HISTORY OF PRESENT ILLNESS: The patient is a 76-year-old gentleman with a histo ry of hypertension, diabetes, prostate cancer, end-stage renal disease on hemodialysis, was admitted in the hospital because of abdominal pain and colitis. Patient subsequently went into acute respir atory failure. The patient sustained a ground level fall during his stay in the hospital and was di agnosed with acute large subdural hematoma measuring 13.8 x 3.4 x 10.1 cm. The patient was seen by Dr. Alden Beckett from neurosurgery standpoint, and patient was about to be taken to OR for evacuation, however, family requested comfort care. The patient was subsequently extubated and was started on morphine drip. consult from Dr. Santiago was obtained and family finally decided to go for [facility] care. Patient, at the time of my examination, had slow respiration, was unresponsive. No rep orted recent seizures, no reported fever today. Patient did not have any vomiting. No reported rec zachary bleed. No reported seizure. REVIEW OF SYSTEMS: Rather limited as patient was unresponsive. PAST MEDICAL HISTORY: As stated above. PAST SURGICAL HISTORY: Patient is status post dialysis access surgery. SOCIAL HISTORY: Ex-smoker, alcohol none. FAMILY HISTORY: Noncontributory for patient's condition. PHYSICAL EXAMINATION: GENERAL: The patient to be nonverbal. VITAL SIGNS: Temperature 97, pulse 76, respirations around 12, blood pressure 136/63, pulse ox 100% on 3 liters nasal cannula. HEENT: No eye discharge or redness. Extraocular movements could not be tested. NECK: No mass. CHEST: Revealed few coarse breath sounds. CARDIOVASCULAR: S1, S2 normal. No murmur. ABDOMEN: Soft, nondistended, nontender. EXTREMITIES: Trace edema. NEUROLOGIC: The patient is nonverbal. LABORATORY DATA: Recent labs, hemoglobin 8.3, platelets 221, sodium 144, potassium 4.2, BUN 57, cre atinine 8.3, glucose 174. IMPRESSION: 1. Large acute subdural hematoma. 2. Hypertension. 3. Diabetes mellitus. 4. End-stage renal disease. 5. Encephalopathy. 6. Status post recent respiratory failure. 7. History of recent colitis. PLAN: The patient's morphine dose will be increased to 11 mg an hour and it will be titrated up for comfort care. We will also start him on Levsin drops for secretion, IV Zofran for vomiting and IV Ativan for anxiety. I met with patient's and daughter and updated them regarding patient's poo r prognosis, and I also discussed with the [facility] nurse, Ken, as well as staff nurse at [facility]. Dictated By: INDER WILKES MD AB/NTS Conf#: [id number] DID#: [id number] CC: LUNA CURRY MD;*End*
--- NOTE | 2016-12-02 04:56 | DES ---
DATE OF ADMISSION: 11/22/2016 DATE OF : 12/01/2016 CAUSE OF : Subdural hematoma. OTHER DIAGNOSES: 1. Endstage renal disease. 2. Hypertension. 3. Diabetes. REASON FOR ADMISSION: The patient was a 76-year-old gentleman with history of hypertension, diabete s, prostate cancer and renal disease on hemodialysis, was admitted in the hospital because of abdomi nal pain and colitis. The patient was seen by DrKelsey and was diagnosed with possible colitis /pa ncreatitis. Patient was seen by Dr. Isaac for atrial fibrillation and was also seen by Dr. Payne from nephrology standpoint. The patient fell during his stay in the hospital and developed large a cute subdural hematoma measuring 13.8 x 3.4 x 10.1 cm. The patient was seen by Dr. Alden Beckett from neurosurgery standpoint. The patient's family declined surgical intervention and requested comfort care in view of his multiple comorbid conditions. The patient was seen by Dr. Santiago from palliat ross care standpoint and was started on morphine drip, which was subsequently optimized. I met with patient's and daughter yesterday after the patient was referred to hospice for comfort care. T he patient was admitted at [facility] level of care. The patient was continued on morphine drip and was st arted on for secretions, IV Ativan for anxiety and was continued on morphine drip. The patien t was noted to have no respirations and was subsequently pronounced at 2141 on 11/30/2016. [facility] hosp[facility] staff was called. Dictated By: INDER PITTMAN/GOPAL Conf#: [id number] DID#: [id number]
== END 2016-12-01 02:15 | disposition expired | DRG 871 ==
LOC: E/R 17:06 → EEVIPCON 20:45 → MS1 20:45 → TEL 11-23 02:46 → ICU 11-29 08:18 → MS1 11-29 22:45
PROVIDERS: ADMIT Family Medicine; ATTEND Internal Medicine
PROC: 5A1D70Z Performance of Urinary Filtration, Intermittent, Less than 6 Hours Per Day (ICD-10-PCS; 2016-11-23)
PROC: 5A1D70Z Performance of Urinary Filtration, Intermittent, Less than 6 Hours Per Day (ICD-10-PCS; 2016-11-24)
PROC: 0DB78ZX Excision of Stomach, Pylorus, Via Natural or Artificial Opening Endoscopic, Diagnostic (ICD-10-PCS; 2016-11-25)
PROC: 0DBN8ZX Excision of Sigmoid Colon, Via Natural or Artificial Opening Endoscopic, Diagnostic (ICD-10-PCS; 2016-11-25)
PROC: 0DBL8ZZ Excision of Transverse Colon, Via Natural or Artificial Opening Endoscopic (ICD-10-PCS; 2016-11-25)
PROC: 0DB68ZX Excision of Stomach, Via Natural or Artificial Opening Endoscopic, Diagnostic (ICD-10-PCS; 2016-11-25 15:30)
PROC: 5A1D70Z Performance of Urinary Filtration, Intermittent, Less than 6 Hours Per Day (ICD-10-PCS; 2016-11-26)
PROC: 0FBC8ZX Excision of Ampulla of Vater, Via Natural or Artificial Opening Endoscopic, Diagnostic (ICD-10-PCS; 2016-11-28)
PROC: 5A1935Z Respiratory Ventilation, Less than 24 Consecutive Hours (ICD-10-PCS; principal; 2016-11-29)
PROC: 0BH17EZ Insertion of Endotracheal Airway into Trachea, Via Natural or Artificial Opening (ICD-10-PCS; 2016-11-29)
DX: A41.9 Sepsis, unspecified organism (principal); G93.5 Compression of brain; J96.00 Acute respiratory failure, unspecified whether with hypoxia or hypercapnia; G93.49 Other encephalopathy; K22.6 Gastro-esophageal laceration-hemorrhage syndrome; K57.31 Diverticulosis of large intestine without perforation or abscess with bleeding; K85.90 Acute pancreatitis without necrosis or infection, unspecified; N18.6 End stage renal disease; I12.0 Hypertensive chronic kidney disease with stage 5 chronic kidney disease or end stage renal disease; S06.5X0A Traumatic subdural hemorrhage without loss of consciousness, initial encounter; E11.22 Type 2 diabetes mellitus with diabetic chronic kidney disease; I48.0 Paroxysmal atrial fibrillation; D63.1 Anemia in chronic kidney disease; K52.9 Noninfective gastroenteritis and colitis, unspecified; E87.6 Hypokalemia; E03.9 Hypothyroidism, unspecified; K63.5 Polyp of colon; K29.70 Gastritis, unspecified, without bleeding; K64.8 Other hemorrhoids; W19.XXXA Unspecified fall, initial encounter; Z66 Do not resuscitate; Z51.5 Encounter for palliative care; Z99.2 Dependence on renal dialysis; Z85.46 Personal history of malignant neoplasm of prostate; Z87.891 Personal history of nicotine dependence
CPT/HCPCS: 36415; 36600; 70450; 71010; 72100; 72125; 72128; 72131; 72170; 73520; 74177; 74181; 74330; 80048; 80053; 80061; 82150; 82270; 82803; 82962; 83036; 83605; 83690; 83735; 83880; 84100; 84439; 84443; 85014; 85018; 85025; 85610; 85730; 86301; 86674; 86850; 86900; 86901; 87040; 87045; 87075; 87081; 87177; 87205; 88305; 88312; 90935; 93005; 93306; 94002; 96374; 96375; 97162; C9113; J0360; J0690; J1100; J1170; J1335; J1644; J2060; J2250; J2270; J2370; J2405; J2543; J2765; J3010; J3480; J7030; J7512; Q4081; Q9967